=== PATIENT | female | born 1935 | race Caucasian/White ===

== ENCOUNTER 2020-07-09 17:11 | Outpatient (REF) | payer MEDICARE, SELFPAY | END 2020-07-09 17:12 | disposition home or self-care (01) | LOC: HO.LAB 17:11 | PROVIDERS: Visit Provider Internal Medicine | DX: Z20.828 Contact with and (suspected) exposure to other viral communicable diseases (principal) | CPT/HCPCS: C9803; U0003 ==

== ENCOUNTER 2020-10-12 11:55 | Outpatient (REF) | payer MEDICARE, SELFPAY ==
[2020-10-12 14:11] LABS: Albumin Level 4.2 g/dL (3.5-5.0); Calcium 9.7 mg/dL (8.4-10.2)
[2020-10-12 14:43] LABS: Vitamin D 25-OH Total 46.4 ng/mL (>30)
== END 2020-10-12 11:56 | disposition home or self-care (01) ==
LOC: HO.HMGCLDS 11:55
PROVIDERS: PCP Internal Medicine; Visit Provider Internal Medicine
DX: M81.0 Age-related osteoporosis without current pathological fracture (principal); E83.52 Hypercalcemia; E23.1 Drug-induced hypopituitarism
CPT/HCPCS: 36415; 82040; 82306; 82310

== ENCOUNTER 2020-10-15 | Outpatient (REF) | payer MEDICARE, SELFPAY ==
[2020-10-18 15:36] LABS: N-Telopeptide 19 (see note); NTXCreaRU 59 mg/dL (20-275)
== END 2020-10-15 00:01 | disposition home or self-care (01) ==
LOC: HO.HMGCLNP
PROVIDERS: Visit Provider Internal Medicine
DX: M81.0 Age-related osteoporosis without current pathological fracture (principal); E83.52 Hypercalcemia; E21.3 Hyperparathyroidism, unspecified; E55.9 Vitamin D deficiency, unspecified
CPT/HCPCS: 82523

== ENCOUNTER → 2020-10-17 10:47 | Outpatient (BNVA) | payer MEDICARE, SELFPAY | PROVIDERS: PCP Internal Medicine; Visit Provider Internal Medicine | DX: M81.0 Age-related osteoporosis without current pathological fracture (principal); E21.3 Hyperparathyroidism, unspecified | CPT/HCPCS: 96372; 96402; 99212; J0897 ==

== ENCOUNTER 2020-11-02 12:41 | Outpatient (REF) | payer MEDICARE, SELFPAY ==
[2020-11-02 14:25] LABS: Alanine Aminotransferase 13 U/L (0-31); Albumin Level 4.1 g/dL (3.5-5.0); Alkaline Phosphatase 64 U/L (39-117); Anion Gap 10 (12-20); Aspartate Amino Transferase 24 U/L (5-31); Bilirubin Total 0.5 mg/dL (0.0-1.0); Blood Urea Nitrogen 21 mg/dL (9-16); Calcium 9.5 mg/dL (8.4-10.2); Carbon Dioxide 29 mmol/L (22-29); Chloride 104 mmol/L (96-108); Estimated Glomerular Filt Rate 57; Glucose Random 120 mg/dL (60-115); Sodium 139 mmol/L (135-145); Total Protein 7.4 g/dL (6.5-8.0)
[2020-11-02 15:06] LABS: Vitamin D 25-OH Total 41.5 ng/mL (>30)
[2020-11-05 16:12] LABS: Calcium (PTHI) 9.9 mg/dL (8.6-10.4); PTHI 47 pg/mL (14-64)
== END 2020-11-02 12:42 | disposition home or self-care (01) ==
LOC: HO.HMGCLDS 12:41
PROVIDERS: PCP Internal Medicine; Visit Provider Internal Medicine
DX: M81.0 Age-related osteoporosis without current pathological fracture (principal); E55.9 Vitamin D deficiency, unspecified
CPT/HCPCS: 36415; 80053; 82306; 83970

== ENCOUNTER 2020-11-19 11:08 | Outpatient (REF) | payer MEDICARE, SELFPAY ==
[2020-11-19 12:24] LABS: Alanine Aminotransferase 12 U/L (0-31); Albumin Level 4.2 g/dL (3.5-5.0); Alkaline Phosphatase 54 U/L (39-117); Aspartate Amino Transferase 24 U/L (5-31); Bilirubin Direct 0.2 mg/dL (0.0-0.5); Bilirubin Total 0.4 mg/dL (0.0-1.0); Cholesterol 157 mg/dL; HDL Cholesterol 56 mg/dL; LDL Cholesterol Calculated 82 mg/dl; Total Protein 7.3 g/dL (6.5-8.0); Triglycerides 95 mg/dL
[2020-11-19 12:37] LABS: Reflex LDLD? No
== END 2020-11-19 11:09 | disposition home or self-care (01) ==
LOC: HO.LNP 11:08
PROVIDERS: PCP Internal Medicine; Visit Provider Internal Medicine
DX: E78.00 Pure hypercholesterolemia, unspecified (principal)
CPT/HCPCS: 80061; 80076

== ENCOUNTER 2021-04-17 09:50 | Outpatient (REF) | payer MEDICARE, SELFPAY ==
[2021-04-17 12:20] LABS: Albumin Level 4.2 g/dL (3.5-5.0); Estimated Glomerular Filt Rate > 60; Phosphorus 3.5 mg/dL (2.7-4.5)
[2021-04-17 12:25] LABS: Vitamin D 25-OH Total 45.3 ng/mL (>30)
[2021-04-18 15:36] LABS: Calcium (PTHI) 10.2 mg/dL (8.6-10.4); PTHI 45 pg/mL (14-64)
== END 2021-04-17 09:51 | disposition home or self-care (01) ==
LOC: HO.HMGCLDS 09:50
PROVIDERS: PCP Internal Medicine; Visit Provider Internal Medicine
DX: M81.0 Age-related osteoporosis without current pathological fracture (principal); E55.9 Vitamin D deficiency, unspecified
CPT/HCPCS: 36415; 82040; 82306; 82310; 82565; 83970; 84100

== ENCOUNTER → 2021-04-18 10:45 | Outpatient (BNVA) | payer MEDICARE, SELFPAY | PROVIDERS: PCP Internal Medicine; Visit Provider Internal Medicine | DX: M81.0 Age-related osteoporosis without current pathological fracture (principal); E55.9 Vitamin D deficiency, unspecified | CPT/HCPCS: 96372; J0897 ==

== ENCOUNTER 2021-05-02 11:29 | Outpatient (REF) | payer MEDICARE, SELFPAY ==
[2021-05-02 14:16] LABS: Albumin Level 4.2 g/dL (3.5-5.0); Estimated Glomerular Filt Rate > 60
[2021-05-03 17:51] LABS: Calcium (PTHI) 9.9 mg/dL (8.6-10.4); PTHI 62 pg/mL (14-64)
== END 2021-05-02 11:30 | disposition home or self-care (01) ==
LOC: HO.HMGCLDS 11:29
PROVIDERS: PCP Internal Medicine; Visit Provider Internal Medicine
DX: E55.9 Vitamin D deficiency, unspecified (principal)
CPT/HCPCS: 36415; 82040; 82565; 83970

== ENCOUNTER 2021-05-07 12:47 | Outpatient (REF) | payer MEDICARE, SELFPAY ==
--- NOTE | ~2021-05-07 | MM_ITS ---
EXAMINATION: BONE DENSITOMETRY CLINICAL INDICATION: Age-related osteoporosis without current pathological fracture. COMPARISON: Previous BD dated 05/06/2019 and baseline BD dated 01/19/2008. TECHNIQUE: Using a Performable DXA System (software version: 13.1) manufactured by [employer], dual-energy x-ray absorptiometry was performed of the spine and left hip. The images are of good technical quality. Summary results are attached. FINDINGS: AP SPINE L1-L3 (excluding L4): The data of L1-L4 has been changed to exclude the L4 vertebral body, because degenerative changes at this level may cause overestimation of lumbar spine density. Current: BMD 0.801 g/cm2, Z-score -0.6, T-score -3.1, osteoporosis, 6.9% increase from previous, 0.2% decrease from baseline (<5% change is not significant). Prior: BMD 0.749 g/cm2. Baseline: BMD 0.803 g/cm2. LEFT FEMUR, NECK: Current: BMD 0.854 g/cm2, Z-score 1.4, T-score -1.3, osteopenia. Prior: BMD 0.752 g/cm2. Baseline: BMD 0.846 g/cm2. LEFT FEMUR, TOTAL: Current: BMD 0.820 g/cm2, Z-score 1.2, T-score -1.5, osteopenia, 18.2% increase from previous, 4.3% decrease from baseline (<5% change is not significant). Prior: BMD 0.694 g/cm2. Baseline: BMD 0.857 g/cm2. IDENTIFIED RISK FACTORS: Osteoporosis, menopause. HISTORY OF FRACTURE: None listed. MEDICATIONS: None listed. MM/XR DEXA axial skeleton IMPRESSION: 1. DIAGNOSIS: Osteoporosis based on the lowest T-score value of -3.1 in the lumbar spine applying World Health Organization criteria. 2. 10-YEAR FRACTURE RISK PREDICTION, FRAX: Major osteoporotic fracture (clinical spine, forearm, hip or shoulder) 11.1%. Hip fracture 3.0%. 3. Treatment Recommendations: NOF guidelines recommend consideration for treatment in postmenopausal women and men age 50 and older presenting with the following: -A hip or vertebral (clinical or morphometric) fracture. -T-score less than or equal to -2.5 at the femoral neck or spine after appropriate evaluation to exclude secondary causes. -Low bone mass at the hip or spine and a 10-year fracture probability by FRAX of greater than or equal to 3% for hip fracture or greater than or equal to 20% for major osteoporotic fracture based on the [place] adapted WHO algorithm. 4. Other Recommendations: All treatment decisions require clinical judgment and consideration of individual patient factors, including patient preferences, comorbidities, previous drug use, risk factors not captured in the FRAX model (e.g. frailty, falls, vitamin D deficiency, increased bone turnover, interval significant decline in bone density) and possible under or overestimation of fracture risk by FRAX. Additional medical evaluation for secondary cause of low bone mineral density may be appropriate. FUTURE SCAN RECOMMENDATION: People with diagnosed cases of osteoporosis or at high risk for fracture should have regular bone mineral density tests. For patients eligible for Medicare, routine testing is allowed once every 2 years. The testing frequency can be increased to one year for patients who have rapidly progressing disease, those who are receiving or discontinuing medical therapy to restore bone mass, or have additional risk factors.
== END 2021-05-07 12:48 | disposition home or self-care (01) ==
LOC: HO.MAMMO 12:47
PROVIDERS: PCP Internal Medicine; Visit Provider Internal Medicine
DX: M81.0 Age-related osteoporosis without current pathological fracture (principal)
CPT/HCPCS: 77080

== ENCOUNTER 2021-05-10 11:01 | Outpatient (REF) | payer MEDICARE, SELFPAY ==
[2021-05-10 11:07] LABS: MANUAL DIFF FLAG NO
[2021-05-10 11:42] LABS: Basophils Absolute Auto 0.1 X10*3/uL (0.0-0.2); Basophils Percent Auto 0.8 % (0-2); Eosinophils Absolute Auto 0.3 X10*3/uL (0.0-0.4); Eosinophils Percent Auto 3.9 % (0-4); Hematocrit 39.8 % (37-47); Hemoglobin 12.8 g/dl (12.0-16.0); Imm Gran Abs Auto 0.02 X10*3/uL (0.00-0.03); Imm Gran Pct Auto 0.3 % (0.0-0.4); Lymphocytes Absolute Auto 2.5 X10*3/uL (1.2-4.9); Lymphocytes Percent Auto 32.8 % (20-40); Mean Corpuscular HGB Conc 32.2 g/dl (31.0-35.0); Mean Corpuscular Volume 87.1 fL (80-98); Mean Platelet Volume 10.8 fL (9.4-12.3); Monocytes Absolute Auto 0.8 X10*3/uL (0.1-1.2); Monocytes Percent Auto 9.9 % (2-11); Neutrophils Percent Auto 52.3 % (45-73); Platelet Count 187 X10*3/uL (160-400); Red Blood Count 4.57 X10*6/uL (4.20-5.50); White Blood Count 7.7 X10*3/uL (4.8-10.8)
[2021-05-10 12:05] LABS: Appearance Urine HAZY; Color Urine YELLOW; Glucose Urine UA NEG (NEG); Leukocyte Esterase Urine 3+ (NEG); Nitrite Urine NEG (NEG); PH 7.5 (5.0-8.0); Urine Blood TRACE (NEG); Urine Ketones NEG (NEG); Urine Protein NEG (NEG-TRACE)
[2021-05-10 12:15] LABS: Alanine Aminotransferase 17 U/L (0-31); Albumin Level 4.1 g/dL (3.5-5.0); Alkaline Phosphatase 52 U/L (39-117); Anion Gap 12 (12-20); Aspartate Amino Transferase 32 U/L (5-31); Bilirubin Total 0.7 mg/dL (0.0-1.0); Blood Urea Nitrogen 13 mg/dL (9-16); Calcium 9.6 mg/dL (8.4-10.2); Carbon Dioxide 25 mmol/L (22-29); Chloride 108 mmol/L (96-108); Cholesterol 147 mg/dL; Estimated Glomerular Filt Rate > 60; Glucose Fasting 97 mg/dL (60-99); HDL Cholesterol 50 mg/dL; LDL Cholesterol Calculated 75 mg/dl; Potassium 3.8 mmol/L (3.3-5.1); Sodium 141 mmol/L (135-145); Triglycerides 112 mg/dL
[2021-05-10 12:22] LABS: Vitamin D 25-OH Total 44.5 ng/mL (>30)
[2021-05-10 12:44] LABS: Bacteria Urine 4+ /LPF; RBC Urine 0 /HPF (0); Squamous Epithelial Cell Urine TRACE /LPF; WBC Clumps Urine NOTED; WBC Urine 50-75 /HPF (0-4)
== END 2021-05-10 11:02 | disposition home or self-care (01) ==
LOC: HO.LNP 11:01
PROVIDERS: Visit Provider Internal Medicine
DX: E78.00 Pure hypercholesterolemia, unspecified (principal); M81.0 Age-related osteoporosis without current pathological fracture; E67.3 Hypervitaminosis D
CPT/HCPCS: 80053; 80061; 81001; 81003; 82306; 85025

== ENCOUNTER → 2021-06-19 10:45 | Outpatient (BNVA) | payer MEDICARE, SELFPAY | PROVIDERS: PCP Internal Medicine; Visit Provider Internal Medicine | DX: M81.0 Age-related osteoporosis without current pathological fracture (principal); E21.3 Hyperparathyroidism, unspecified | CPT/HCPCS: 99212 ==

== ENCOUNTER 2021-09-26 11:22 | Outpatient (REF) | payer MEDICARE, SELFPAY ==
[2021-09-26 14:17] LABS: Alanine Aminotransferase 14 U/L (0-31); Alkaline Phosphatase 54 U/L (39-117); Anion Gap 9 (12-20); Aspartate Amino Transferase 27 U/L (5-31); Bilirubin Total 0.5 mg/dL (0.0-1.0); Blood Urea Nitrogen 18 mg/dL (9-16); Calcium 10.1 mg/dL (8.4-10.2); Carbon Dioxide 31 mmol/L (22-29); Chloride 102 mmol/L (96-108); Estimated Glomerular Filt Rate 57; Glucose Random 115 mg/dL (60-115); Magnesium 2.3 mg/dL (1.6-2.6); Phosphorus 3.2 mg/dL (2.7-4.5); Potassium 3.6 mmol/L (3.3-5.1); Sodium 138 mmol/L (135-145); Total Protein 7.4 g/dL (6.5-8.0)
[2021-09-26 14:20] LABS: Vitamin D 25-OH Total 39.9 ng/mL (>30)
[2021-09-27 14:07] LABS: Calcium (PTHI) 10.2 mg/dL (8.6-10.4); PTHI 47 pg/mL (14-64)
== END 2021-09-26 11:23 | disposition home or self-care (01) ==
LOC: HO.HMGCLDS 11:22
PROVIDERS: PCP Internal Medicine; Visit Provider Internal Medicine
DX: E55.9 Vitamin D deficiency, unspecified (principal); E21.3 Hyperparathyroidism, unspecified; M81.0 Age-related osteoporosis without current pathological fracture
CPT/HCPCS: 36415; 80053; 82306; 83735; 83970; 84100

== ENCOUNTER → 2021-10-09 10:41 | Outpatient (BNVA) | payer MEDICARE, SELFPAY | PROVIDERS: PCP Internal Medicine; Visit Provider Internal Medicine | DX: M81.0 Age-related osteoporosis without current pathological fracture (principal); E21.3 Hyperparathyroidism, unspecified | CPT/HCPCS: 99212 ==

== ENCOUNTER 2021-10-22 11:02 | Outpatient (REF) | payer MEDICARE, SELFPAY ==
[2021-10-23 13:01] LABS: Calcium (PTHI) 9.9 mg/dL (8.6-10.4); PTHI 46 pg/mL (14-64)
== END 2021-10-22 11:03 | disposition home or self-care (01) ==
LOC: HO.HMGCLDS 11:02
PROVIDERS: PCP Internal Medicine; Visit Provider Internal Medicine
DX: M81.0 Age-related osteoporosis without current pathological fracture (principal)
CPT/HCPCS: 36415; 83970

== ENCOUNTER → 2021-10-23 13:45 | Outpatient (BNVA) | payer MEDICARE, SELFPAY | PROVIDERS: PCP Internal Medicine; Visit Provider Internal Medicine | DX: M81.0 Age-related osteoporosis without current pathological fracture (principal) | CPT/HCPCS: 96372; J0897 ==

== ENCOUNTER 2021-11-07 12:06 | Outpatient (REF) | payer MEDICARE, SELFPAY ==
[2021-11-07 12:42] LABS: Alanine Aminotransferase 15 U/L (0-31); Albumin Level 4.2 g/dL (3.5-5.0); Alkaline Phosphatase 56 U/L (39-117); Aspartate Amino Transferase 26 U/L (5-31); Bilirubin Direct 0.2 mg/dL (0.0-0.5); Bilirubin Total 0.5 mg/dL (0.0-1.0); Cholesterol 151 mg/dL; HDL Cholesterol 51 mg/dL; LDL Cholesterol Calculated 79 mg/dl; Total Protein 7.4 g/dL (6.5-8.0); Triglycerides 108 mg/dL
[2021-11-07 12:58] LABS: Reflex LDLD? No
== END 2021-11-07 12:07 | disposition home or self-care (01) ==
LOC: HO.LNP 12:06
PROVIDERS: Visit Provider Internal Medicine
DX: E78.00 Pure hypercholesterolemia, unspecified (principal)
CPT/HCPCS: 80061; 80076

== ENCOUNTER 2022-04-09 13:10 | Outpatient (REF) | payer MEDICARE, SELFPAY ==
[2022-04-09 17:47] LABS: Alanine Aminotransferase 16 U/L (0-31); Albumin Level 4.1 g/dL (3.5-5.0); Alkaline Phosphatase 57 U/L (39-117); Anion Gap 13 (12-20); Aspartate Amino Transferase 27 U/L (5-31); Bilirubin Total 0.5 mg/dL (0.0-1.0); Blood Urea Nitrogen 18 mg/dL (9-16); Calcium 9.5 mg/dL (8.4-10.2); Carbon Dioxide 27 mmol/L (22-29); Chloride 105 mmol/L (96-108); Estimated Glomerular Filt Rate > 60; Glucose Random 99 mg/dL (60-115); Potassium 4.2 mmol/L (3.3-5.1); Sodium 141 mmol/L (135-145); Total Protein 7.1 g/dL (6.5-8.0)
[2022-04-09 18:03] LABS: Vitamin D 25-OH Total 37.6 ng/mL (>30)
[2022-04-10 11:32] LABS: Calcium (PTHI) 9.6 mg/dL (8.6-10.4); PTHI 63 pg/mL (16-77)
== END 2022-04-09 13:11 | disposition home or self-care (01) ==
LOC: HO.HMGCLDS 13:10
PROVIDERS: PCP Internal Medicine; Visit Provider Internal Medicine
DX: M81.0 Age-related osteoporosis without current pathological fracture (principal); E55.9 Vitamin D deficiency, unspecified
CPT/HCPCS: 36415; 80053; 82306; 83970; 84100

== ENCOUNTER 2022-04-10 10:53 | Outpatient (REF) | payer MEDICARE, SELFPAY ==
[2022-04-16 12:51] LABS: N-Telopeptide 14 (see note); NTXCreaRU 33 mg/dL (20-275)
== END 2022-04-10 10:54 | disposition home or self-care (01) ==
LOC: HO.HMGCLDS 10:53
PROVIDERS: PCP Internal Medicine; Visit Provider Internal Medicine
DX: M81.0 Age-related osteoporosis without current pathological fracture (principal)
CPT/HCPCS: 82523

== ENCOUNTER → 2022-04-23 13:44 | Outpatient (BNVA) | payer MEDICARE, SELFPAY | PROVIDERS: PCP Internal Medicine; Visit Provider Internal Medicine | DX: M81.0 Age-related osteoporosis without current pathological fracture (principal); E21.3 Hyperparathyroidism, unspecified; E55.9 Vitamin D deficiency, unspecified | CPT/HCPCS: 96372; 99212; J0897 ==

== ENCOUNTER 2022-05-08 13:31 | Outpatient (REF) | payer MEDICARE, SELFPAY ==
[2022-05-08 17:00] LABS: Albumin Level 4.3 g/dL (3.5-5.0); Estimated Glomerular Filt Rate > 60
[2022-05-09 12:06] LABS: Calcium (PTHI) 10.3 mg/dL (8.6-10.4); PTHI 64 pg/mL (16-77)
== END 2022-05-08 13:32 | disposition home or self-care (01) ==
LOC: HO.HMGCLDS 13:31
PROVIDERS: PCP Internal Medicine; Visit Provider Internal Medicine
DX: M81.0 Age-related osteoporosis without current pathological fracture (principal)
CPT/HCPCS: 36415; 82040; 82565; 83970

== ENCOUNTER 2022-05-15 12:05 | Outpatient (REF) | payer MEDICARE, SELFPAY ==
[2022-05-15 12:10] LABS: MANUAL DIFF FLAG NO
[2022-05-15 12:15] LABS: Basophils Absolute Auto 0.1 X10*3/uL (0.0-0.2); Basophils Percent Auto 1.1 % (0-2); Eosinophils Absolute Auto 0.4 X10*3/uL (0.0-0.4); Hemoglobin 13.2 g/dl (12.0-16.0); Imm Gran Abs Auto 0.02 X10*3/uL (0.00-0.03); Imm Gran Pct Auto 0.2 % (0.0-0.4); Lymphocytes Absolute Auto 3.3 X10*3/uL (1.2-4.9); Lymphocytes Percent Auto 33.8 % (20-40); Mean Corpuscular HGB Conc 31.4 g/dl (31.0-35.0); Mean Corpuscular Hemoglobin 28.1 pg (27.0-33.0); Mean Corpuscular Volume 89.4 fL (80.0-98.0); Mean Platelet Volume 10.3 fL (9.4-12.3); Monocytes Absolute Auto 1.1 X10*3/uL (0.1-1.2); Monocytes Percent Auto 10.8 % (2-11); Neutrophils Absolute Auto 4.9 x10*3/uL (2.0-8.3); Neutrophils Percent Auto 50.1 % (45-73); Platelet Count 237 X10*3/uL (160-400); Red Cell Distribution Width 14.5 % (11.0-16.0); White Blood Count 9.9 X10*3/uL (4.8-10.8)
[2022-05-15 12:19] LABS: Appearance Urine Cloudy; Color Urine Yellow; Glucose Urine UA Negative (Negative); Leukocyte Esterase Urine Large (3+) (Negative); Nitrite Urine Positive (Negative); UMIC TRIGGER UA YES; Urine Blood Negative (Negative); Urine Ketones Negative (Negative); Urine Protein Negative (Neg-Trace)
[2022-05-15 12:25] LABS: Bacteria Urine 4+ (None Seen); Hyaline Casts Urine 0-2 /LPF (0-2); RBC Urine 0-2 /HPF (0-2); Squamous Epithelial Cell Urine 0-2 /HPF (0-2); WBC Urine >50 /HPF (0-5)
[2022-05-15 12:26] LABS: Alanine Aminotransferase 19 U/L (0-31); Alkaline Phosphatase 54 U/L (39-117); Anion Gap 13 (12-20); Aspartate Amino Transferase 27 U/L (5-31); Bilirubin Total 0.5 mg/dL (0.0-1.0); Blood Urea Nitrogen 20 mg/dL (9-16); Calcium 9.7 mg/dL (8.4-10.2); Carbon Dioxide 27 mmol/L (22-29); Chloride 107 mmol/L (96-108); Cholesterol 161 mg/dL; Estimated Glomerular Filt Rate > 60; Glucose Fasting 97 mg/dL (60-99); HDL Cholesterol 50 mg/dL; LDL Cholesterol Calculated 94 mg/dl; Potassium 4.2 mmol/L (3.3-5.1); Sodium 143 mmol/L (135-145); Total Protein 7.2 g/dL (6.5-8.0); Triglycerides 86 mg/dL
[2022-05-15 12:46] LABS: Vitamin D 25-OH Total 46.3 ng/mL (>30)
== END 2022-05-15 12:06 | disposition home or self-care (01) ==
LOC: HO.LNP 12:05
PROVIDERS: Visit Provider Internal Medicine
DX: E78.00 Pure hypercholesterolemia, unspecified (principal); E67.3 Hypervitaminosis D
CPT/HCPCS: 80053; 80061; 81001; 82306; 85025

== ENCOUNTER 2022-05-16 14:50 | Outpatient (REF) | payer MEDICARE, SELFPAY | END 2022-05-16 14:51 | disposition home or self-care (01) | LOC: HO.HMGCLDS 14:50 | PROVIDERS: PCP Internal Medicine; Visit Provider Internal Medicine | DX: N39.0 Urinary tract infection, site not specified (principal) | CPT/HCPCS: 87086; 87088; 87186 ==

== ENCOUNTER 2022-06-05 10:46 | Outpatient (REF) | payer MEDICARE, SELFPAY ==
[2022-06-05 11:40] LABS: Appearance Urine Cloudy; Color Urine Yellow; Glucose Urine UA Negative (Negative); Leukocyte Esterase Urine Small (1+) (Negative); Nitrite Urine Negative (Negative); UMIC TRIGGER UA YES; Urine Blood Negative (Negative); Urine Ketones Negative (Negative); Urine Protein Negative (Neg-Trace)
[2022-06-05 11:59] LABS: Bacteria Urine 4+ (None Seen); RBC Urine 0-2 /HPF (0-2); WBC Urine 0-5 /HPF (0-5)
== END 2022-06-05 10:47 | disposition home or self-care (01) ==
LOC: HO.LNP 10:46
PROVIDERS: Visit Provider Internal Medicine
DX: N39.0 Urinary tract infection, site not specified (principal)
CPT/HCPCS: 81001; 87086; 87088; 87186

== ENCOUNTER 2022-06-12 13:41 | Outpatient (REF) | payer MEDICARE, SELFPAY ==
--- NOTE | ~2022-06-12 | US_ITS ---
EXAMINATION: US EXTRACRANIAL CAROTID DUPLEX, BILATERAL CLINICAL INFORMATION: TIA. COMPARISON: 05/18/2012. TECHNIQUE: Real-time ultrasound and Doppler techniques (integrating B-mode 2-D vascular images, Doppler spectral analysis and color-flow Doppler imaging) were utilized to interrogate the extracranial carotid arteries, the vertebral arteries and proximal subclavian arteries bilaterally. The degree of stenosis is determined by criteria similar to NASCET. FINDINGS: RIGHT SIDE: 1. There is mild atherosclerotic plaque seen in the bifurcation/proximal ICA region. 2. The common carotid artery PSV proximally is 99 cm/s and distally 111 cm/s. 3. The proximal internal carotid artery velocities are 93 cm/s systolic and 24 cm/s diastolic. 4. The proximal external carotid artery PSV is 91 cm/s. 5. The vertebral artery shows antegrade flow. 6. The subclavian artery waveforms are normal. LEFT SIDE: 1. There is mild atherosclerotic plaque seen in the bifurcation/proximal ICA region. 2. The common carotid artery PSV proximally is 117 cm/s and distally 111 cm/s. 3. The proximal internal carotid artery velocities are 93 cm/s systolic and 16 cm/s diastolic. 4. The proximal external carotid artery PSV is 110 cm/s. 5. The vertebral artery shows antegrade flow. 6. The subclavian artery waveforms are normal. US/US carotid duplex BI IMPRESSION: 1. RIGHT: Minimal, non-hemodynamically significant stenosis of the proximal right internal carotid artery corresponding to a 0-49% stenosis by velocity criteria. 2. LEFT: Minimal, non-hemodynamically significant stenosis of the proximal left internal carotid artery corresponding to a 0-49% stenosis by velocity criteria. 3. There is no change in the category severity of disease when compared to the previous study dated 05/18/2012.
== END 2022-06-12 13:42 | disposition home or self-care (01) ==
LOC: HO.HMGCX 13:41
PROVIDERS: PCP Internal Medicine; Visit Provider Internal Medicine
DX: G45.9 Transient cerebral ischemic attack, unspecified (principal)
CPT/HCPCS: 93880

== ENCOUNTER 2022-06-23 11:57 | Outpatient (REF) | payer MEDICARE, SELFPAY ==
[2022-06-23 13:59] LABS: Appearance Urine Cloudy; Color Urine Yellow; Glucose Urine UA Negative (Negative); Leukocyte Esterase Urine Moderate (2+) (Negative); Nitrite Urine Negative (Negative); UMIC TRIGGER UA YES; Urine Blood Negative (Negative); Urine Ketones Negative (Negative); Urine Protein Negative (Neg-Trace)
[2022-06-23 14:09] LABS: Bacteria Urine None Seen (None Seen); Hyaline Casts Urine 0-2 /LPF (0-2); RBC Urine 0-2 /HPF (0-2); WBC Urine 0-5 /HPF (0-5)
== END 2022-06-23 11:58 | disposition home or self-care (01) ==
LOC: HO.HMGCLDS 11:57
PROVIDERS: PCP Internal Medicine; Visit Provider Internal Medicine
DX: N39.0 Urinary tract infection, site not specified (principal)
CPT/HCPCS: 81001; 87086

== ENCOUNTER 2022-10-13 13:36 | Outpatient (REF) | payer MEDICARE, SELFPAY ==
[2022-10-13 17:04] LABS: Alanine Aminotransferase 16 U/L (0-31); Albumin Level 4.1 g/dL (3.5-5.0); Alkaline Phosphatase 54 U/L (39-117); Anion Gap 11 (12-20); Aspartate Amino Transferase 27 U/L (5-31); Bilirubin Total 0.5 mg/dL (0.0-1.0); Blood Urea Nitrogen 15 mg/dL (9-16); Carbon Dioxide 27 mmol/L (22-29); Chloride 104 mmol/L (96-108); Estimated Glomerular Filt Rate > 60; Glucose Random 87 mg/dL (60-115); Phosphorus 3.1 mg/dL (2.7-4.5); Potassium 4.2 mmol/L (3.3-5.1); Sodium 138 mmol/L (135-145); Total Protein 6.9 g/dL (6.5-8.0)
[2022-10-13 17:20] LABS: Vitamin D 25-OH Total 39.9 ng/mL (>30)
[2022-10-14 13:39] LABS: PTHI 62 pg/mL (16-77)
== END 2022-10-13 13:37 | disposition home or self-care (01) ==
LOC: HO.HMGCLDS 13:36
PROVIDERS: PCP Internal Medicine; Visit Provider Internal Medicine
DX: E55.9 Vitamin D deficiency, unspecified (principal); M81.0 Age-related osteoporosis without current pathological fracture
CPT/HCPCS: 36415; 80053; 82306; 83970; 84100

== ENCOUNTER 2022-10-14 13:34 | Outpatient (REF) | payer MEDICARE, SELFPAY ==
[2022-10-23 13:09] LABS: N-Telopeptide 15 (see note); NTXCreaRU 30 mg/dL (20-275)
== END 2022-10-14 13:35 | disposition home or self-care (01) ==
LOC: HO.HMGCLDS 13:34
PROVIDERS: PCP Internal Medicine; Visit Provider Internal Medicine
DX: M81.0 Age-related osteoporosis without current pathological fracture (principal)
CPT/HCPCS: 82523

== ENCOUNTER → 2022-10-27 14:01 | Outpatient (BNVA) | payer MEDICARE, SELFPAY | PROVIDERS: PCP Internal Medicine; Visit Provider Internal Medicine | DX: M81.0 Age-related osteoporosis without current pathological fracture (principal); E21.3 Hyperparathyroidism, unspecified; E55.9 Vitamin D deficiency, unspecified; Z85.3 Personal history of malignant neoplasm of breast; Z90.11 Acquired absence of right breast and nipple; Z92.3 Personal history of irradiation; Z92.21 Personal history of antineoplastic chemotherapy; Z79.620 Long term (current) use of immunosuppressive biologic | CPT/HCPCS: 96372; 99212; J0897 ==

== ENCOUNTER 2022-11-10 09:15 | Outpatient (REF) | payer MEDICARE, SELFPAY ==
[2022-11-10 12:21] LABS: Albumin Level 4.3 g/dL (3.5-5.0); Estimated Glomerular Filt Rate > 60
[2022-11-11 14:53] LABS: Calcium (PTHI) 10.2 mg/dL (8.6-10.4); PTHI 67 pg/mL (16-77)
== END 2022-11-10 09:16 | disposition home or self-care (01) ==
LOC: HO.HMGCLNP 09:15
PROVIDERS: PCP Internal Medicine; Visit Provider Internal Medicine
DX: Z13.89 Encounter for screening for other disorder (principal)
CPT/HCPCS: 82040; 82565; 83970

== ENCOUNTER 2022-11-10 11:20 | Outpatient (REF) | payer MEDICARE, SELFPAY ==
[2022-11-10 13:26] LABS: Alanine Aminotransferase 16 U/L (0-31); Albumin Level 4.2 g/dL (3.5-5.0); Alkaline Phosphatase 51 U/L (39-117); Aspartate Amino Transferase 27 U/L (5-31); Bilirubin Direct 0.2 mg/dL (0.0-0.5); Bilirubin Total 0.8 mg/dL (0.0-1.0); Cholesterol 148 mg/dL; HDL Cholesterol 53 mg/dL; LDL Cholesterol Calculated 85 mg/dl; Total Protein 7.1 g/dL (6.5-8.0); Triglycerides 50 mg/dL
[2022-11-10 13:55] LABS: Reflex LDLD? No
== END 2022-11-10 11:21 | disposition home or self-care (01) ==
LOC: HO.LNP 11:20
PROVIDERS: Visit Provider Internal Medicine
DX: E78.00 Pure hypercholesterolemia, unspecified (principal); M81.0 Age-related osteoporosis without current pathological fracture
CPT/HCPCS: 80061; 80076; 82040; 82565; 83970

== ENCOUNTER 2023-04-06 13:06 | Outpatient (REF) | payer MEDICARE, SELFPAY ==
[2023-04-06 17:06] LABS: Alanine Aminotransferase 13 U/L (0-31); Albumin Level 4.2 g/dL (3.5-5.0); Alkaline Phosphatase 62 U/L (39-117); Anion Gap 13 (12-20); Aspartate Amino Transferase 25 U/L (5-31); Bilirubin Total 0.4 mg/dL (0.0-1.0); Blood Urea Nitrogen 19 mg/dL (9-16); Calcium 9.9 mg/dL (8.4-10.2); Carbon Dioxide 26 mmol/L (22-29); Chloride 105 mmol/L (96-108); Estimated Glomerular Filt Rate > 60; Glucose Random 101 mg/dL (60-115); Phosphorus 3.2 mg/dL (2.7-4.5); Potassium 3.8 mmol/L (3.3-5.1); Sodium 140 mmol/L (135-145); Total Protein 7.8 g/dL (6.5-8.0)
[2023-04-06 17:23] LABS: Vitamin D 25-OH Total 53.6 ng/mL (>30)
[2023-04-08 13:48] LABS: Calcium (PTHI) 9.9 mg/dL (8.6-10.4); PTHI 57 pg/mL (16-77)
== END 2023-04-06 13:07 | disposition home or self-care (01) ==
LOC: HO.HMGCLDS 13:06
PROVIDERS: PCP Internal Medicine; Visit Provider Internal Medicine
DX: E55.9 Vitamin D deficiency, unspecified (principal); M81.0 Age-related osteoporosis without current pathological fracture
CPT/HCPCS: 36415; 80053; 82306; 83970; 84100

== ENCOUNTER 2023-04-29 10:40 | Outpatient (AMB) | payer MEDICARE, SELFPAY ==
--- NOTE | 2023-04-29 10:41 | AM.OFFVISNUR ---
Intake Intake Visit Reasons: Prolia Allergies No Known Allergies Allergy (Mild, Verified 12/15/22 15:49) NKA Office Meds Prolia Performing Provider: Lilibeth Hogue DO Administered by: Sachin Rosales RN on 04/29/23 10:41 Dose Route Admin Location Lot Number Expiration Date NDC Wind Turbine Controls Engineer 60 mg subcut R upper arm [id number] 04/30/25 [facility] Coding Diagnoses Assessment & Plan Assessment & Plan Orders: Orders AMB Denosumab Injection Practice Supplied Today M81.0 - Age-related osteoporosis without current pathological fracture
== END 2023-04-29 10:50 | disposition home or self-care (01) ==
LOC: HO.ENCR 10:40
PROVIDERS: PCP Internal Medicine; Visit Provider Internal Medicine
DX: M81.0 Age-related osteoporosis without current pathological fracture (principal)

== ENCOUNTER → 2023-04-29 10:40 | Outpatient (BNVA) | payer MEDICARE, SELFPAY | PROVIDERS: PCP Internal Medicine; Visit Provider Internal Medicine | DX: M81.0 Age-related osteoporosis without current pathological fracture (principal) | CPT/HCPCS: 96372; J0897 ==

== ENCOUNTER 2023-06-24 10:49 | Outpatient (REF) | payer MEDICARE, SELFPAY ==
--- NOTE | ~2023-06-24 | MM_ITS ---
EXAMINATION: BONE DENSITOMETRY CLINICAL INDICATION: Age-related osteoporosis without current pathological fracture. COMPARISON: Previous BD dated 05/07/2021 and baseline BD dated 01/19/2008 (lumbar spine and left hip). This is the initial examination of the left forearm radius 33%. TECHNIQUE: Using a [employer] DXA System (software version: 13.1) manufactured by [employer], dual-energy x-ray absorptiometry was performed of the lumbar spine, left hip and left forearm radius 33%. The images are of good technical quality. Summary results are attached. FINDINGS: AP SPINE L1-L4: Current: BMD 0.835 g/cm2, Z-score -0.3, T-score -2.9, osteoporosis, 4.9% decrease from previous, 1.1% increase from baseline (<5% change is not significant). Prior: BMD 0.878 g/cm2. Baseline: BMD 0.826 g/cm2. LEFT FEMUR, NECK: Current: BMD 0.857 g/cm2, Z-score 1.6, T-score -1.3, osteopenia. Prior: BMD 0.854 g/cm2. Baseline: BMD 0.846 g/cm2. LEFT FEMUR, TOTAL: Current: BMD 0.846 g/cm2, Z-score 1.5, T-score -1.3, osteopenia, 3.2% increase from previous, 1.3% decrease from baseline (<5% change is not significant). Prior: BMD 0.820 g/cm2. Baseline: BMD 0.857 g/cm2. LEFT FOREARM RADIUS 33%: BMD 0.575 g/cm2, Z-score -0.1, T-score -3.4, osteoporosis. IDENTIFIED RISK FACTORS: Osteoporosis. Menopause. HISTORY OF FRACTURE: None listed. MEDICATIONS: Prolia. MM/XR DEXA axial skeleton IMPRESSION: 1. DIAGNOSIS: Osteoporosis based on the lowest T-score value of -3.4 in the left forearm radius 33% applying World Health Organization criteria. 2. 10-YEAR FRACTURE RISK PREDICTION, FRAX: According to the guidelines, FRAX calculation should only be performed on patients in the osteopenia bone density category.?Therefore, FRAX was not performed on this patient.? 3. Treatment Recommendations: NOF guidelines recommend consideration for treatment in postmenopausal women and men age 50 and older presenting with the following: -A hip or vertebral (clinical or morphometric) fracture. -T-score less than or equal to -2.5 at the femoral neck or spine after appropriate evaluation to exclude secondary causes. -Low bone mass at the hip or spine and a 10-year fracture probability by FRAX of greater than or equal to 3% for hip fracture or greater than or equal to 20% for major osteoporotic fracture based on the [place] adapted WHO algorithm. 4. Other Recommendations: All treatment decisions require clinical judgment and consideration of individual patient factors, including patient preferences, comorbidities, previous drug use, risk factors not captured in the FRAX model (e.g. frailty, falls, vitamin D deficiency, increased bone turnover, interval significant decline in bone density) and possible under or overestimation of fracture risk by FRAX. Additional medical evaluation for secondary cause of low bone mineral density may be appropriate. FUTURE SCAN RECOMMENDATION: People with diagnosed cases of osteoporosis or at high risk for fracture should have regular bone mineral density tests. For patients eligible for Medicare, routine testing is allowed once every 2 years. The testing frequency can be increased to one year for patients who have rapidly progressing disease, those who are receiving or discontinuing medical therapy to restore bone mass, or have additional risk factors.
== END 2023-06-24 10:50 | disposition home or self-care (01) ==
LOC: HO.MAMMO 10:49
PROVIDERS: PCP Internal Medicine; Visit Provider Internal Medicine Endocrinology, Diabetes & Metabolism
DX: Z13.820 Encounter for screening for osteoporosis (principal); Z78.0 Asymptomatic menopausal state; M81.0 Age-related osteoporosis without current pathological fracture
CPT/HCPCS: 77080

== ENCOUNTER 2023-08-11 12:50 | Outpatient (AMB) | payer MEDICARE, SELFPAY ==
--- NOTE | 2023-08-11 12:56 | MHC.OFFVIS ---
Intake Vital Signs 08/11/23 13:00 Height 5 ft 2.01 in Weight 108 lb 3.951 oz BMI 19.8 BP 116/60 Blood Pressure Location Lt brachial Position Sitting Pulse 82 Pulse Source Pulse Oximeter Intake Visit Reasons: Osteoporosis-CONFIRMED Intake Note: Patient present for Osteoporosis follow up visit. Previously followed by Dr. Pepper. 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 boulardii)) 250 mg PO ONCE sulfamethoxazole-trimethoprim 800-160 mg (Bactrim DS) 1 tab PO BID 5 days HPI HPI Comments History of Present Illness Details 88 YO Female who is seen in F/U for Osteoporosis. Patient last saw Dr. Pepper on 10/27/2022 First diagnosed in 2001. Received treatment in the past with Fosamax from 2001 to 2010. She did fail treatment with Fosamax as she had acute worsening of her BMD while on treatment. She was diagnosed with bilateral breast cancer and had a R sided mastectomy. She was treated with Chemo/Radiation and was also treated with Anastrazole from [id number]. She had a repeat BMD in 2019, which revealed a loss of BMD of 16% in her L hip. After her initial visit with mo she underwent full biochemical workup for secondary causes of Osteoporosis 08/09/19. Her Calcium was high normal at 10.4, albumin 4.4, Vitamin D 52, and PTH of 45, indicating likely mild primary hyperparathyroidism. She opted for medical management and no surgical parathyroidectomy. Decision was made to proceed with Prolia. She received 6 doses so far 10/12/2019, 04/11/2020, 10/17/2020, 04/18/2021, 10/23/2021, 04/23/2022. No history of pathologic fracture or ONJ. Has 4 servings of dietary calcium per day in the form of almond milk, cheese and ice cream. Does not take a Calcium Supplement. Does not take Vitamin D supplement. Denies ever using PPI, anticoagulant, antiepileptic or glucocorticoid medication. Does weight bearing exercise most days of the week in the form of walking. Walks between 53062-[address] steps per day. She also does [place] and rides a bike. Fracture history: Denies any fractures. 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 Menses was always regular. , she did not breastfeed. Menopause was mid 50's. Did use HRT from from age 53 for 8 years until the year 1999. History of Kidney stones: Denies. Denies Family history of Osteoporosis or hip fracture. UTD on dental cleanings and sees dentist every 6 months. No planned upcoming dental work or extractions. DXA dated 05/07/2021: FINDINGS: AP SPINE L1-L3 (excluding L4): The data of L1-L4 has been changed to exclude the L4 vertebral body, because degenerative changes at this level may cause overestimation of lumbar spine density. Current: BMD 0.801 g/cm2, Z-score -0.6, T-score -3.1, osteoporosis, 6.9% increase from previous, 0.2% decrease from baseline (<5% change is not significant). Prior: BMD 0.749 g/cm2. Baseline: BMD 0.803 g/cm2. LEFT FEMUR, NECK: Current: BMD 0.854 g/cm2, Z-score 1.4, T-score -1.3, osteopenia. Prior: BMD 0.752 g/cm2. Baseline: BMD 0.846 g/cm2. LEFT FEMUR, TOTAL: Current: BMD 0.820 g/cm2, Z-score 1.2, T-score -1.5, osteopenia, 18.2% increase from previous, 4.3% decrease from baseline (<5% change is not significant). Prior: BMD 0.694 g/cm2. Baseline: BMD 0.857 g/cm2. Labs: Laboratory Tests 10/13/22 10/13/22 10/14/22 13:43 13:43 04:50 Creatinine 0.83 Estimated GFR > 60 N-Telopeptide X-li nked 15 25-OH Vitamin D To remington 39.9 PTH Intact 62 Calcium (PTH Intac t) 10.0 PFSH Medical History (Reviewed 10/27/22 @ 14:45 by SHAHLA Cortez Hyperparathyroidism Osteoporosis Vitamin D deficiency Surgical History History of right cataract surgery History of left cataract surgery Hx of eye surgery Hx of cholecystectomy Hx of total mastectomy of right breast Family History Father CVD (cardiovascular disease) Stroke Mother Heart disease Social History Alcohol intake: never Patient Tobacco Use Status: Never used Tobacco Physical Exam Vital Signs: Last Vital Signs Pulse 82 08/11/23 13:00 BP 116/60 08/11/23 13:00 BMI result Body Mass Index 19.8 Assessment & Plan Assessment & Plan (1) Osteoporosis: Code(s): M81.0 - Age-related osteoporosis without current pathological fracture Qualifiers: Osteoporosis type: unspecified Presence of current pathological fracture: unspecified Qualified Code(s): M81.0 - Age-related osteoporosis without current pathological fracture Plan: This 88-year-old white female with history of osteoporosis with negative secondary workup currently being treated with Prolia 60 mg Q 6 months. DEXA bone density has improved with Prolia. Plan is to continue the Prolia, Could consider transitioning to bisphosphonate oral or IV in 2 yrs after next DEXA Coding Level of Care Code Est Pt Level 3 (97513) Diagnoses Osteoporosis, unspecified osteoporosis type, unspecified pathological fracture presence M81.0 Osteoporosis type: unspecified Presence of current pathological fracture: unspecified
[2023-08-11 13:00] VITALS: BP 116/60; PULSE 82; BMI 19.8
== END 2023-08-11 13:32 | disposition home or self-care (01) ==
PROVIDERS: PCP Internal Medicine; Visit Provider Internal Medicine Endocrinology, Diabetes & Metabolism
DX: M81.0 Age-related osteoporosis without current pathological fracture (principal)
CPT/HCPCS: 99213

== ENCOUNTER → 2023-08-11 12:50 | Outpatient (BNVA) | payer MEDICARE, SELFPAY | PROVIDERS: PCP Internal Medicine; Visit Provider Internal Medicine Endocrinology, Diabetes & Metabolism | DX: M81.0 Age-related osteoporosis without current pathological fracture (principal) | CPT/HCPCS: 99212 ==

== ENCOUNTER 2023-08-14 09:34 | Outpatient (REF) | payer MEDICARE, SELFPAY ==
[2023-08-14 13:32] LABS: MANUAL DIFF FLAG NO
[2023-08-14 13:40] LABS: Basophils Absolute Auto 0.1 X10*3/uL (0.0-0.2); Eosinophils Absolute Auto 0.7 X10*3/uL (0.0-0.4); Eosinophils Percent Auto 7.7 % (0-4); Hematocrit 43.8 % (37.0-47.0); Imm Gran Abs Auto 0.02 X10*3/uL (0.00-0.03); Imm Gran Pct Auto 0.2 % (0.0-0.4); Lymphocytes Absolute Auto 2.1 X10*3/uL (1.2-4.9); Lymphocytes Percent Auto 23.1 % (20-40); Mean Corpuscular Hemoglobin 28.1 pg (27.0-33.0); Mean Platelet Volume 10.3 fL (9.4-12.3); Monocytes Absolute Auto 0.8 X10*3/uL (0.1-1.2); Monocytes Percent Auto 9.2 % (2-11); Neutrophils Absolute Auto 5.3 x10*3/uL (2.0-8.3); Neutrophils Percent Auto 58.8 % (45-73); Platelet Count 269 X10*3/uL (160-400); Red Blood Count 4.98 X10*6/uL (4.20-5.50); Red Cell Distribution Width 13.6 % (11.0-16.0)
[2023-08-14 13:53] LABS: Appearance Urine Turbid; Color Urine Yellow; Glucose Urine UA Negative (Negative); Leukocyte Esterase Urine Large (3+) (Negative); Nitrite Urine Positive (Negative); UMIC TRIGGER UACC YES; Urine Blood Small (1+) (Negative); Urine Ketones Negative (Negative); Urine Protein Negative (Neg-Trace)
[2023-08-14 14:14] LABS: Bacteria Urine 4+ (None Seen); Hyaline Casts Urine 0-2 /LPF (0-2); UACC Culture Trigger YES; WBC Urine >50 /HPF (0-5)
[2023-08-14 14:16] LABS: Alanine Aminotransferase 12 U/L (0-31); Albumin Level 4.1 g/dL (3.5-5.0); Alkaline Phosphatase 82 U/L (39-117); Anion Gap 13 (12-20); Aspartate Amino Transferase 25 U/L (5-31); Bilirubin Total 0.4 mg/dL (0.0-1.0); Blood Urea Nitrogen 12 mg/dL (9-16); Calcium 10.1 mg/dL (8.4-10.2); Carbon Dioxide 27 mmol/L (22-29); Chloride 106 mmol/L (96-108); Cholesterol 150 mg/dL (<200); Estimated Glomerular Filt Rate > 60; Glucose Fasting 103 mg/dL (60-99); HDL Cholesterol 43 mg/dL (>40); LDL Cholesterol Calculated 82 mg/dL (<100); Potassium 4.2 mmol/L (3.3-5.1); Sodium 142 mmol/L (135-145); Triglycerides 129 mg/dL (<150)
[2023-08-14 14:34] LABS: Vitamin D 25-OH Total 61.1 ng/mL (>30)
== END 2023-08-14 09:35 | disposition home or self-care (01) ==
LOC: HO.HMGCLNP 09:34
PROVIDERS: PCP Internal Medicine; Visit Provider Internal Medicine
DX: E67.3 Hypervitaminosis D (principal)
CPT/HCPCS: 80053; 80061; 81001; 82306; 85025; 87086; 87088; 87186

== ENCOUNTER 2023-08-28 08:50 | Outpatient (REF) | payer MEDICARE, SELFPAY ==
[2023-08-28 13:43] LABS: Appearance Urine Clear; Color Urine Yellow; Glucose Urine UA Negative (Negative); Leukocyte Esterase Urine Moderate (2+) (Negative); Nitrite Urine Negative (Negative); UMIC TRIGGER UACC YES; Urine Blood Negative (Negative); Urine Ketones Negative (Negative); Urine Protein Negative (Neg-Trace)
[2023-08-28 13:46] LABS: Bacteria Urine None Seen (None Seen); Hyaline Casts Urine 0-2 /LPF (0-2); RBC Urine 0-2 /HPF (0-2); Squamous Epithelial Cell Urine 0-2 /HPF (0-2); UACC Culture Trigger YES
== END 2023-08-28 08:51 | disposition home or self-care (01) ==
LOC: HO.HMGCLNP 08:50
PROVIDERS: PCP Internal Medicine; Visit Provider Internal Medicine
DX: E78.00 Pure hypercholesterolemia, unspecified (principal); E67.3 Hypervitaminosis D
CPT/HCPCS: 81001; 87086

== ENCOUNTER 2023-10-16 14:24 | Outpatient (REF) | payer MEDICARE, SELFPAY ==
[2023-10-16 16:34] LABS: Anion Gap 11 (12-20); Blood Urea Nitrogen 17 mg/dL (9-16); Calcium 9.9 mg/dL (8.4-10.2); Carbon Dioxide 28 mmol/L (22-29); Chloride 106 mmol/L (96-108); Estimated Glomerular Filt Rate > 60; Glucose Random 86 mg/dL (60-115); Potassium 4.3 mmol/L (3.3-5.1); Sodium 141 mmol/L (135-145)
== END 2023-10-16 14:25 | disposition home or self-care (01) ==
LOC: HO.HMGCLDS 14:24
PROVIDERS: PCP Internal Medicine; Visit Provider Internal Medicine Endocrinology, Diabetes & Metabolism
DX: M81.0 Age-related osteoporosis without current pathological fracture (principal)
CPT/HCPCS: 36415; 80048; 82040; 82310

== ENCOUNTER 2023-10-29 12:44 | Outpatient (AMB) | payer MEDICARE, SELFPAY ==
--- NOTE | 2023-10-29 14:07 | AM.OFFVISNUR ---
Intake Intake Visit Reasons: Prolia inj Allergies No Known Allergies Allergy (Mild, Verified 08/11/23 13:01) NKA Office Meds Prolia 60 mg/mL subcutaneous syringe Performing Provider: Luis Fernando Rene MD [place] [facility] [place] Administered by: Rocío Adames LPN on 10/29/23 14:07 Dose Route Admin Location Dispensed Lot Number Expiration Date NDC Diesel Roller Operator 60 mg subcut Left upper arm 1 mL [id number] 10/28/25 [facility] Coding Assessment & Plan Assessment & Plan Orders: Orders AMB Denosumab Injection Practice Supplied Today M81.0 - Age-related osteoporosis without current pathological fracture
== END 2023-10-29 14:09 | disposition home or self-care (01) ==
PROVIDERS: PCP Internal Medicine; Visit Provider Internal Medicine Endocrinology, Diabetes & Metabolism
DX: M81.0 Age-related osteoporosis without current pathological fracture (principal)

== ENCOUNTER → 2023-10-29 12:44 | Outpatient (BNVA) | payer MEDICARE, SELFPAY | PROVIDERS: PCP Internal Medicine; Visit Provider Internal Medicine Endocrinology, Diabetes & Metabolism | DX: M81.0 Age-related osteoporosis without current pathological fracture (principal) | CPT/HCPCS: 96372; J0897 ==

== ENCOUNTER 2024-02-16 09:07 | Outpatient (REF) | payer MEDICARE, SELFPAY ==
[2024-02-16 11:09] LABS: Alanine Aminotransferase 17 U/L (0-31); Albumin Level 4.1 g/dL (3.5-5.0); Alkaline Phosphatase 58 U/L (39-117); Aspartate Amino Transferase 26 U/L (5-31); Bilirubin Direct 0.1 mg/dL (0.0-0.5); Bilirubin Total 0.4 mg/dL (0.0-1.0); Cholesterol 143 mg/dL (<200); HDL Cholesterol 42 mg/dL (>40); LDL Cholesterol Calculated 84 mg/dL (<100); Total Protein 7.7 g/dL (6.5-8.0); Triglycerides 88 mg/dL (<150)
== END 2024-02-16 09:08 | disposition home or self-care (01) ==
LOC: HO.HMGCLDS 09:07
PROVIDERS: PCP Internal Medicine; Visit Provider Internal Medicine Endocrinology, Diabetes & Metabolism
DX: E78.00 Pure hypercholesterolemia, unspecified (principal)
CPT/HCPCS: 36415; 80061; 80076

== ENCOUNTER 2024-03-08 11:36 | Outpatient (AMB) | payer MEDICARE, SELFPAY ==
[2024-03-08 11:37] VITALS: BP 120/70; PULSE 78; TEMP 36.7; O2SAT 96
--- NOTE | 2024-03-08 11:37 | MHC.OFFWIV ---
Intake Vital Signs 03/08/24 11:37 Height 5 ft 2 in BP 120/70 Blood Pressure Location Rt brachial Position Sitting Pulse 78 Pulse Source Pulse Oximeter Temp 98.0 F Temp Source Temporal Artery Scan Pulse Oximetry (%) 96 Oxygen Delivery Method Room Air Intake Visit Reasons: possible UTI Intake Note: pt is here for possible uti Patient Tobacco Use Status: Never used Tobacco Allergies No Known Allergies Allergy (Mild, Verified 03/08/24 11:37) NKA Do you need a note to return to daycare/school/sports/work: No HPI HPI Comments History of Present Illness Details Patient is 89-year-old female complaining of a possible urinary tract infection. She states for the last few days she has felt like she has to pee more frequently but then she goes and only a little bit comes out. She states it does hurt just a little bit when she has that bit of urine come out. She denies any fevers, low back pain, blood in her urine or dark urine. She has brought in her own urine sample today, she states she did not do a clean-catch but she has a problem urinating outside of her own home. [facility] Medical History Hyperparathyroidism Osteoporosis Vitamin D deficiency Surgical History History of right cataract surgery History of left cataract surgery Hx of eye surgery Hx of cholecystectomy Hx of total mastectomy of right breast Family History Father CVD (cardiovascular disease) Stroke Mother Heart disease Social History Alcohol intake: never Patient Tobacco Use Status: Never used Tobacco Review of Systems Const All systems reviewed & are unremarkable except as noted in HPI and below Physical Exam Vital Signs: Last Vital Signs Temp 98.0 F 03/08/24 11:37 Pulse 78 03/08/24 11:37 BP 120/70 03/08/24 11:37 Pulse Ox 96 03/08/24 11:37 Oxygen Delivery Method Room Air 03/08/24 11:37 Const General: cooperative, healthy appearing, comfortable, no acute distress and well developed Orientation/consciousness: patient oriented x3 Limitations: no limitations HEENT Head: Yes normal to inspection Eyes General: appearance normal, both eyes and all related structures Neck Neck: Yes normal visual inspection and Yes full ROM Resp Effort & Inspection: normal respiratory effort and able to speak in complete sentences General: Yes bladder normal to palpation and Yes no CVA tenderness Bimanual exam- vagina & uterus: bladder normal to palpation Back/Spine/Pelvis Back: no CVA tenderness Skin General skin exam: no rashes or lesions noted Neuro General: patient oriented x3 Extrem General: Yes normal to inspection Results AMB Urinalysis, Automated UA Leukoctes 500 Khalida/uL Last Edit by Sachin Coelho CMA on 03/08/24 11:57 UA Nitrite Negative Last Edit by Sachin Coelho CMA on 03/08/24 11:57 UA Urobilinogen 0.2 mg/dL Last Edit by Sachin Coelho CMA on 03/08/24 11:57 UA Protein 30 mg/dL Last Edit by Sachin Coelho CMA on 03/08/24 11:57 UA pH 6.0 Last Edit by Sachin Coelho CMA on 03/08/24 11:57 UA Blood 80 Max/uL Last Edit by Sachin Coelho CMA on 03/08/24 11:57 UA Specific [place] 1.015 Last Edit by Sachin Coelho CMA on 03/08/24 11:57 UA Ketone Negative Last Edit by Sachin Coelho CMA on 03/08/24 11:57 UA Bilirubin 0 mg/dL Last Edit by Sachin Coelho CMA on 03/08/24 11:57 UA Glucose 0 mg/dL Last Edit by Sachin Coelho CMA on 03/08/24 11:57 Results Reviewed Results Reviewed: Laboratory Last Values Urine pH (Auto) 6.0 03/08/24 11:55 Specific [place] (Auto) 1.015 03/08/24 11:55 Urine Protein (Auto) 30 mg/dL 03/08/24 11:55 Glucose (UA)(Auto) 0 mg/dL 03/08/24 11:55 Urine Ketones (Auto) Negative 03/08/24 11:55 Urine Blood (Auto) 80 Max/uL 03/08/24 11:55 Urine Nitrite (Auto) Negative 03/08/24 11:55 Urine Bilirubin (Auto) 0 mg/dL 03/08/24 11:55 Urine Urobilinogen (Auto) 0.2 mg/dL 03/08/24 11:55 Leukocyte Esterase (Auto) 500 Khalida/uL 03/08/24 11:55 Assessment & Plan Assessment & Plan (1) Urinary tract infection: Code(s): N39.0 - Urinary tract infection, site not specified Qualifiers: Hematuria presence: with hematuria Urinary tract infection type: acute cystitis Qualified Code(s): N30.01 - Acute cystitis with hematuria Plan: Will treat for UTI based on symptoms, she did show 3+ leukocytes 1+ protein and 2+ blood in her urine but again this was a dirty urine. Explained to patient that I will give her a clean-catch to take home and if she does not feel better after taking the antibiotics for a few days, she should repeat the UA with the clean-catch kit and bring it to the office so we can test it and send it for culture. Also explained she wants to make sure the blood in her urine resolved, likely secondary to infection at this time. No evidence on physical exam for a kidney stone but I did give red flag warning signs and when to go to the emergency department. Plan See above Orders: Orders AMB Urinalysis Automated Today Z13.9 - Encounter for screening, unspecified Medications: New cefuroxime axetil 500 mg PO Q12H 10 tabs 0RF Coding Level of Care Code Est Pt Level 3 (66212) Diagnoses Acute cystitis with hematuria N30.01 Hematuria presence: with hematuria Urinary tract infection type: acute cystitis
== END 2024-03-08 12:19 | disposition home or self-care (01) ==
PROVIDERS: PCP Internal Medicine; Visit Provider Physician Assistant
DX: N30.01 Acute cystitis with hematuria (principal)
CPT/HCPCS: 81003; 99213

== ENCOUNTER 2024-03-21 10:29 | Outpatient (REF) | payer MEDICARE, SELFPAY ==
[2024-03-21 13:18] LABS: Appearance Urine Clear; Color Urine Yellow; Glucose Urine UA Negative (Negative); Leukocyte Esterase Urine Large (3+) (Negative); Nitrite Urine Negative (Negative); PH 6.5 (5.0-9.0); UMIC TRIGGER UACC YES; Urine Blood Negative (Negative); Urine Ketones Negative (Negative); Urine Protein Negative (Neg-Trace)
[2024-03-21 13:24] LABS: Bacteria Urine None Seen (None Seen); Hyaline Casts Urine 0-2 /LPF (0-2); RBC Urine 0-2 /HPF (0-2); UACC Culture Trigger YES; WBC Urine 21-50 /HPF (0-5)
== END 2024-03-21 10:30 | disposition home or self-care (01) ==
LOC: HO.HMGCLDS 10:29
PROVIDERS: PCP Internal Medicine; Visit Provider Internal Medicine
DX: Z51.89 Encounter for other specified aftercare (principal); R82.79 Other abnormal findings on microbiological examination of urine
CPT/HCPCS: 81001; 87086

== ENCOUNTER 2024-04-07 17:59 | Outpatient (REF) | payer MEDICARE, SELFPAY ==
--- NOTE | ~2024-04-07 | MR_ITS ---
MRI OF THE LUMBAR SPINE WITHOUT CONTRAST CLINICAL INFORMATION: Sciatica on the right side. COMPARISON: None available. TECHNIQUE: Multiplanar multisequence MR imaging of the lumbar spine obtained without contrast. FINDINGS: There are 5 nonrib-bearing lumbar-type vertebral bodies. S1 is lumbarized sharing a rudimentary disc with S2. Severe disc volume loss at L5-S1 and moderate to severe disc volume loss at L4-L5. There are Modic type I endplate signal changes at L5-S1. No additional bone marrow edema. There are no acute fractures. The vertebral body heights are maintained. Conus terminates at the L1-L2 level. Bilateral parapelvic cysts. Bilateral paraspinal muscular atrophy. L1-L2: Small shallow central disc protrusion minimally just the ventral thecal sac. There is no foraminal stenosis. L2-L3: There is grade 1 retrolisthesis. Small annular disc bulge and mild bilateral facet arthropathy without central canal stenosis and without foraminal stenosis L3-L4: Small annular disc bulge and mild bilateral facet arthropathy. No central canal stenosis and no foraminal stenosis. L4-L5: Grade 1 degenerative anterolisthesis. Severe bilateral facet arthropathy and ligamentum flavum thickening. Findings in concert result in right subarticular zone stenosis and mass effect on the traversing right L5 nerve root. Mild central canal stenosis. Moderate right and mild left foraminal encroachment. L5-S1: Diffuse disc osteophyte complex and severe bilateral facet arthropathy and ligamentum flavum thickening. Findings in concert result in mild central canal stenosis and moderate left-sided foraminal stenosis with left lateral disc osteophyte resulting in mass effect on the extraforaminal left L5 nerve root. MR/MR lumbar spine wo con IMPRESSION: * Please note that S1 shares a rudimentary disc with S2. Using this counting system there is grade 1 anterolisthesis of L4 on L5. Please correlate with plain films prior to any percutaneous or surgical intervention. * At L5-S1, multifactorial degenerative changes result in mild central canal stenosis and moderate left-sided foraminal stenosis with left lateral disc osteophyte resulting in mass effect on the extraforaminal left L5 nerve root. Modic type I endplate signal changes at this level. * At L4-L5, grade 1 degenerative anterolisthesis and multifactorial degenerative changes result in right subarticular zone stenosis and mass effect on the traversing right L5 nerve root. Moderate right and mild left foraminal encroachment at this level. Electronically signed by: Eliecer Sanchez MD 04/20/2024 12:48 PM EDT RP
== END 2024-04-07 18:00 | disposition home or self-care (01) ==
LOC: HO.MRI 17:59
PROVIDERS: PCP Internal Medicine; Visit Provider Internal Medicine
DX: M54.31 Sciatica, right side (principal)
CPT/HCPCS: 72148

== ENCOUNTER 2024-04-21 11:48 | Outpatient (REF) | payer MEDICARE, SELFPAY ==
[2024-04-21 13:40] LABS: Calcium 10.5 mg/dL (8.4-10.2)
[2024-04-21 13:47] LABS: Albumin Level 4.3 g/dL (3.5-5.0); Anion Gap 12 (12-20); Blood Urea Nitrogen 15 mg/dL (9-16); Calcium 10.4 mg/dL (8.4-10.2); Carbon Dioxide 27 mmol/L (22-29); Chloride 106 mmol/L (96-108); Estimated Glomerular Filt Rate > 60; Glucose Random 92 mg/dL (60-115); Potassium 4.7 mmol/L (3.3-5.1); Sodium 140 mmol/L (135-145)
== END 2024-04-21 11:49 | disposition home or self-care (01) ==
LOC: HO.HMGCLDS 11:48
PROVIDERS: PCP Internal Medicine; Visit Provider Internal Medicine Endocrinology, Diabetes & Metabolism
DX: M81.0 Age-related osteoporosis without current pathological fracture (principal)
CPT/HCPCS: 36415; 80048; 82040; 82310

== ENCOUNTER 2024-04-22 10:44 | Outpatient (REF) | payer MEDICARE, SELFPAY ==
[2024-04-26 17:39] LABS: Calcium, Ionized 5.4 mg/dL (4.7-5.5)
== END 2024-04-22 10:45 | disposition home or self-care (01) ==
LOC: HO.HMGCLDS 10:44
PROVIDERS: PCP Internal Medicine; Visit Provider Internal Medicine Endocrinology, Diabetes & Metabolism
DX: E21.3 Hyperparathyroidism, unspecified (principal)
CPT/HCPCS: 36415; 82330

== ENCOUNTER 2024-04-28 12:54 | Outpatient (AMB) | payer MEDICARE, SELFPAY ==
--- NOTE | 2024-04-28 13:26 | AM.OFFVISNUR ---
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 Pt tolerated well. Pt denied any problems with previous injection.s Assessment & Plan Assessment & Plan Orders: Orders AMB Denosumab Injection Practice Supplied Today M81.0 - Age-related osteoporosis without current pathological fracture Medications: New Prolia (denosumab) 60 mg subcut ONCE 1 mL 0RF NS M81.0 - Age-related osteoporosis without current pathological fracture
== END 2024-04-28 13:21 | disposition home or self-care (01) ==
PROVIDERS: PCP Internal Medicine; Visit Provider Internal Medicine Endocrinology, Diabetes & Metabolism
DX: M81.0 Age-related osteoporosis without current pathological fracture (principal)

== ENCOUNTER → 2024-04-28 12:54 | Outpatient (BNVA) | payer MEDICARE, SELFPAY | PROVIDERS: PCP Internal Medicine; Visit Provider Internal Medicine Endocrinology, Diabetes & Metabolism | DX: M81.0 Age-related osteoporosis without current pathological fracture (principal) | CPT/HCPCS: 82607; 82746; 85025; 96372; J0897 ==

== ENCOUNTER 2024-04-28 17:12 | Outpatient (REF) | payer MEDICARE, SELFPAY ==
[2024-04-28 17:15] LABS: MANUAL DIFF FLAG NO
[2024-04-28 17:27] LABS: Basophils Absolute Auto 0.1 X10*3/uL (0.0-0.2); Eosinophils Absolute Auto 0.2 X10*3/uL (0.0-0.4); Eosinophils Percent Auto 2.3 % (0-4); Hematocrit 38.7 % (37.0-47.0); Hemoglobin 12.5 g/dl (12.0-16.0); Imm Gran Abs Auto 0.03 X10*3/uL (0.00-0.03); Imm Gran Pct Auto 0.3 % (0.0-0.4); Lymphocytes Absolute Auto 3.1 X10*3/uL (1.2-4.9); Lymphocytes Percent Auto 31.8 % (20-40); Mean Corpuscular HGB Conc 32.3 g/dl (31.0-35.0); Mean Corpuscular Hemoglobin 28.7 pg (27.0-33.0); Mean Corpuscular Volume 88.8 fL (80.0-98.0); Monocytes Percent Auto 9.7 % (2-11); Neutrophils Absolute Auto 5.4 x10*3/uL (2.0-8.3); Neutrophils Percent Auto 54.9 % (45-73); Platelet Count 208 X10*3/uL (160-400); Red Blood Count 4.36 X10*6/uL (4.20-5.50); Red Cell Distribution Width 13.8 % (11.0-16.0); White Blood Count 9.9 X10*3/uL (4.8-10.8)
[2024-04-28 18:55] LABS: Folate > 20.0 ng/mL (> or = 4.0); Vitamin B12 945 pg/mL (200-900)
== END 2024-04-28 17:13 | disposition home or self-care (01) ==
LOC: HO.LNP 17:12
PROVIDERS: Visit Provider Internal Medicine
DX: Z13.89 Encounter for screening for other disorder (principal)
CPT/HCPCS: 82607; 82746; 85025

== ENCOUNTER 2024-05-12 12:47 | Outpatient (AMB) | payer MEDICARE, SELFPAY ==
[2024-05-12 13:08] VITALS: BP 132/56; PULSE 75; BMI 21.0
--- NOTE | 2024-05-12 13:08 | MHC.OFFVIS ---
Vital Signs 05/12/24 13:08 Height 5 ft 1.93 in Weight 114 lb 10.246 oz BMI 21.0 BP 132/56 L Blood Pressure Location Lt brachial Position Sitting Pulse 75 Pulse Source Pulse Oximeter Intake Visit Reasons: f/u osteoporosis-no vm Intake Note: Patient present today for Osteoporosis follow up visit. Care Aid Required: No Accompanied by: Spouse Allergies No Known Allergies Allergy (Mild, Verified 05/12/24 13:09) NKA HPI Comments Details: 89 YO Female who is seen in F/U for Osteoporosis. First diagnosed in 2001. Received treatment in the past with Fosamax from 2001 to 2010. She did fail treatment with Fosamax as she had acute worsening of her BMD while on treatment. She was diagnosed with bilateral breast cancer and had a R sided mastectomy. She was treated with Chemo/Radiation and was also treated with Anastrazole from 1430-2241. She had a repeat BMD in 2019, which revealed a loss of BMD of 16% in her L hip. After her initial visit with me she underwent full biochemical workup for secondary causes of Osteoporosis 08/09/19. Her Calcium was high normal at 10.4, albumin 4.4, Vitamin D 52, and PTH of 45, indicating likely mild primary hyperparathyroidism. She opted for medical management and no surgical parathyroidectomy. Decision was made to proceed with Prolia. She received 6 doses so far 10/12/2019, 04/11/2020, 10/17/2020, 04/18/2021, 10/23/2021, 04/23/2022. No history of pathologic fracture or ONJ. Has 4 servings of dietary calcium per day in the form of almond milk, cheese and ice cream. Does not take a Calcium Supplement. Does not take Vitamin D supplement. Denies ever using PPI, anticoagulant, antiepileptic or glucocorticoid medication. Does weight bearing exercise most days of the week in the form of walking. Walks between 62751-59592 steps per day. She also does [employer] and rides a bike. Fracture history: Denies any fractures. 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 Menses was always regular. , she did not breastfeed. Menopause was mid 50's. Did use HRT from from age 53 for 8 years until the year 1999. History of Kidney stones: Denies. Denies Family history of Osteoporosis or hip fracture. UTD on dental cleanings and sees dentist every 6 months. No planned upcoming dental work or extractions. DXA dated 05/07/2021: FINDINGS: AP SPINE L1-L3 (excluding L4): The data of L1-L4 has been changed to exclude the L4 vertebral body, because degenerative changes at this level may cause overestimation of lumbar spine density. Current: BMD 0.801 g/cm2, Z-score -0.6, T-score -3.1, osteoporosis, 6.9% increase from previous, 0.2% decrease from baseline (<5% change is not significant). Prior: BMD 0.749 g/cm2. Baseline: BMD 0.803 g/cm2. LEFT FEMUR, NECK: Current: BMD 0.854 g/cm2, Z-score 1.4, T-score -1.3, osteopenia. Prior: BMD 0.752 g/cm2. Baseline: BMD 0.846 g/cm2. LEFT FEMUR, TOTAL: Current: BMD 0.820 g/cm2, Z-score 1.2, T-score -1.5, osteopenia, 18.2% increase from previous, 4.3% decrease from baseline (<5% change is not significant). Prior: BMD 0.694 g/cm2. Baseline: BMD 0.857 g/cm2. Labs: Laboratory Tests 10/13/22 10/13/22 10/14/22 13:43 13:43 04:50 Creatinine 0.83 Estimated GFR > 60 N-Telopeptide X-linked 15 25-OH Vitamin D Total 39.9 PTH Intact 62 Calcium (PTH Intact) 10.0 On Prolia 60 mg q.6 months. [facility] Medical History Hyperparathyroidism Osteoporosis Vitamin D deficiency Surgical History History of right cataract surgery History of left cataract surgery Hx of eye surgery Hx of cholecystectomy Hx of total mastectomy of right breast Family History Father CVD (cardiovascular disease) Stroke Mother Heart disease Social History Alcohol intake: never Patient Tobacco Use Status: Never used Tobacco Physical Exam Vital Signs: BMI result Body Mass Index 21.0 Assessment & Plan Assessment & Plan (1) Osteoporosis: Code(s): M81.0 - Age-related osteoporosis without current pathological fracture Category: Medical Qualifiers: Osteoporosis type: unspecified Presence of current pathological fracture: unspecified Qualified Code(s): M81.0 - Age-related osteoporosis without current pathological fracture Plan: This 89-year-old white female with history of osteoporosis with negative secondary workup currently being treated with Prolia 60 mg Q 6 months. Last DEXA bone density has improved with Prolia. Plan is to continue the Prolia, Could consider transitioning to bisphosphonate oral or IV if repeat DEXA shows improvement next year Coding Level of Care Code Est Pt Level 3 (93569) Diagnoses Osteoporosis, unspecified osteoporosis type, unspecified pathological fracture presence M81.0 Osteoporosis type: unspecified Presence of current pathological fracture: unspecified
== END 2024-05-12 13:39 | disposition home or self-care (01) ==
PROVIDERS: PCP Internal Medicine; Visit Provider Internal Medicine Endocrinology, Diabetes & Metabolism
DX: M81.0 Age-related osteoporosis without current pathological fracture (principal)
CPT/HCPCS: 99213

== ENCOUNTER → 2024-05-12 12:47 | Outpatient (BNVA) | payer MEDICARE, SELFPAY | PROVIDERS: PCP Internal Medicine; Visit Provider Internal Medicine Endocrinology, Diabetes & Metabolism | DX: M81.0 Age-related osteoporosis without current pathological fracture (principal); E55.9 Vitamin D deficiency, unspecified; E21.3 Hyperparathyroidism, unspecified; Z79.620 Long term (current) use of immunosuppressive biologic | CPT/HCPCS: 99212 ==

== ENCOUNTER 2024-08-29 08:51 | Outpatient (REF) | payer MEDICARE, SELFPAY ==
[2024-08-29 09:59] LABS: MANUAL DIFF FLAG NO
[2024-08-29 10:04] LABS: Basophils Absolute Auto 0.1 X10*3/uL (0.0-0.2); Basophils Percent Auto 1.2 % (0-2); Eosinophils Absolute Auto 0.3 X10*3/uL (0.0-0.4); Eosinophils Percent Auto 3.5 % (0-4); Hematocrit 41.6 % (37.0-47.0); Hemoglobin 13.7 g/dl (12.0-16.0); Imm Gran Abs Auto 0.03 X10*3/uL (0.00-0.03); Imm Gran Pct Auto 0.3 % (0.0-0.4); Lymphocytes Absolute Auto 2.8 X10*3/uL (1.2-4.9); Lymphocytes Percent Auto 31.2 % (20-40); Mean Corpuscular HGB Conc 32.9 g/dl (31.0-35.0); Mean Corpuscular Hemoglobin 28.8 pg (27.0-33.0); Mean Corpuscular Volume 87.4 fL (80.0-98.0); Mean Platelet Volume 10.4 fL (9.4-12.3); Monocytes Absolute Auto 0.8 X10*3/uL (0.1-1.2); Monocytes Percent Auto 9.2 % (2-11); Neutrophils Absolute Auto 4.9 x10*3/uL (2.0-8.3); Neutrophils Percent Auto 54.6 % (45-73); Platelet Count 242 X10*3/uL (160-400); Red Blood Count 4.76 X10*6/uL (4.20-5.50); Red Cell Distribution Width 13.6 % (11.0-16.0); White Blood Count 8.9 X10*3/uL (4.8-10.8)
[2024-08-29 10:07] LABS: Appearance Urine Turbid; Color Urine Yellow; Glucose Urine UA Negative (Negative); Leukocyte Esterase Urine Large (3+) (Negative); Nitrite Urine Positive (Negative); PH 6.5 (5.0-9.0); Specific Gravity - Urine 1.015 (1.005-1.025); UMIC TRIGGER UACC YES; Urine Blood Small (1+) (Negative); Urine Ketones Negative (Negative); Urine Protein 30 (1+) mg/dL (Neg-Trace)
[2024-08-29 10:31] LABS: Alanine Aminotransferase 15 U/L (0-31); Albumin Level 4.2 g/dL (3.5-5.0); Alkaline Phosphatase 54 U/L (39-117); Anion Gap 12 (12-20); Aspartate Amino Transferase 29 U/L (5-31); Bilirubin Direct 0.2 mg/dL (0.0-0.5); Bilirubin Total 0.6 mg/dL (0.0-1.0); Blood Urea Nitrogen 15 mg/dL (9-16); Calcium 9.9 mg/dL (8.4-10.2); Carbon Dioxide 26 mmol/L (22-29); Chloride 107 mmol/L (96-108); Cholesterol 149 mg/dL (<200); Estimated Glomerular Filt Rate 60; Glucose Fasting 106 mg/dL (60-99); HDL Cholesterol 52 mg/dL (>40); LDL Cholesterol Calculated 83 mg/dL (<100); Potassium 3.8 mmol/L (3.3-5.1); Sodium 141 mmol/L (135-145); Total Protein 7.7 g/dL (6.5-8.0); Triglycerides 74 mg/dL (<150)
[2024-08-29 10:43] LABS: Bacteria Urine 2+ (None Seen); Hyaline Casts Urine 0-2 /LPF (0-2); UACC Culture Trigger YES; WBC Clumps Urine Present; WBC Urine >50 /HPF (0-5)
== END 2024-08-29 08:52 | disposition home or self-care (01) ==
LOC: HO.HMGCLDS 08:51
PROVIDERS: PCP Internal Medicine; Visit Provider Internal Medicine
DX: M81.0 Age-related osteoporosis without current pathological fracture (principal); E78.00 Pure hypercholesterolemia, unspecified; E67.3 Hypervitaminosis D; G45.9 Transient cerebral ischemic attack, unspecified; R82.90 Unspecified abnormal findings in urine
CPT/HCPCS: 36415; 80053; 80061; 80076; 81001; 81003; 82248; 82306; 85025; 87086

== ENCOUNTER 2024-09-27 11:00 | Outpatient (REF) | payer MEDICARE, SELFPAY ==
--- OUTSIDE RECORDS SUMMARY | 2024-09-27 13:40 | XMS_ITS ---
Author Organization Stevenson Ahn MD Address [address] [place] [phone] Care Team Providers Care Baggage Screener Name Role Phone Stevenson Ahn Primary Care Provider REASON FOR VISIT URINALYSIS AND MICROSCOPIC Encounters Encounter Location Date Provider Diagnosis Stevenson Ahn MD [address] [place] [phone] 09/27/2024 Stevenson Ahn Microscopic hematuria R31.29 Assessments Encounter Date Diagnosis (ICD Code) Assessment Notes Treatment Notes Treatment Clinical Notes Section Notes 09/27/2024 Microscopic hematuria (ICD-10 - R31.29) Plan Of Treatment Pending Test Test Name Order Date Urinalysis and Microscopic 09/27/2024 Next Appt Details Provider Name:Stevenson mays, 03/10/2025 08:30:00 AM, [address] [place] [address], [address] [place] [address], [phone], Provider Name:Stevenson mays, 08/29/2025 08:15:00 AM, [address] [place] [address], [address], [phone], Provider Name:Stevenson mays, 09/07/2025 01:30:00 PM, [address] [place] [address], [address], [phone], Progress Notes * Merlyn FERNANDEZ ADOB:[birth year] (89 yo F)Acc No.[id number]:09/27/2024 Progress Note Patient:Merlyn RAINEY Provider:?Stevenson Ahn MD :1935???Age:89 Y???Sex:Female D ate:09/27/2024 Address:[address] [place], [place] [phone] Subjective: * Chief Complaints: * ???1. URINALYSIS AND MICROSC OPIC. * Medical History:? Objective: * Vitals:? Assessment: * Assessment: 1.?Microscopic hematuria - R 31.29??? Plan: * Treatment: * * The named appointment provid er may or may not be the originator of this progress note, and it is not deemed complete until electronically signed by the appointment provider. Sign off status: Pending * Provider:?Stevenson Ahn MD Date:?0 09/27/2024 Generated for Rosamaria smallwood/Cortez/Mushtaqsmitting on:?09/27/2024 01:40 PM EST
--- OUTSIDE RECORDS SUMMARY | 2024-09-27 13:41 | XMS_ITS ---
Author Organization Stevenson Ahn MD Address [address] [facility] [address] [place], [place] [phone] Care Team Providers Care Web Content Executive Name Role Phone Stevenson Ahn Primary Care Provider Medications Medication SIG (Take, Route, Fr equency, Duration) Notes Start Date End Date Status Bactrim DS 800-160 MG 1 tablet Orally tw ice a day for 7 days 09/02/2024 Active Encounters Encounter Location Date Provider Diagnosis Stevenson Ahn MD [address] [facility] [address] [place] [phone] 09/02/2024 Stevenson Ahn Plan Of Treatment Medication Medication Name Sig Start Date Stop Date Notes Bactrim DS 800-160 MG 1 tablet Orally tw ice a day for 7 days 09/02/2024 Next Appt Details Provider Name:Stevenson mays, 03/10/2025 08:30:00 AM, [address] [place] [address], [address] [place] [address], [phone], Provider Name:Stevenson mays, 08/29/2025 08:15:00 AM, [address] [place] [address], [place] [address], [place], [place], [phone], Provider Name:Stevenson mays, 09/07/2025 01:30:00 PM, [address] [place] [address], [address], [phone], Progress Notes * Merlyn FERNANDEZ ADOB:[birth year] (89 yo F)Acc No.[id number]:09/02/2024 Patient:?Merlyn Fernandez :1935???Age:89 Y???Sex:Female Address:[address] [place] [phone] * Refills? Start Bactrim DS Tablet, 800-160 MG, Orally, 14 Tablet, 1 tablet, twice a day, 7 days * true * Date:? Generated for Rosamaria smallwood/Cortez/Mushtaqsmitting on:?09/27/2024 01:41 PM EST
--- OUTSIDE RECORDS SUMMARY | 2024-09-27 13:41 | XMS_ITS ---
Author Organization Stevenson Ahn MD Address [address] [place], [place] [phone] Care Team Providers Care Clerk Of Scales Name Role Phone Stevenson Ahn Primary Care Provider [phone] Allergies No Known Allergies REASON FOR VISIT [...] Ahn MD [address] [place], [place] [phone] 09/02/2024 Stevenson Ahn Microscopic hematuri a R31.29 [...] ontinue curent regiment Depression screening negative screen Pending Test Test Name Order Date Urinalysis and Microscopic 09/02/2024 Next Appt Details Provider Name:Stevenson mays, 03/10/2025 08:30:00 AM, [address] [place] [address], [address], [phone], Provider Name:Stevenson mays, 08/29/2025 08:15:00 AM, [address] [place] [address], [address], [phone], Provider Name:Stevenson mays, 09/07/2025 01:30:00 PM, [address] [place] [address], [address], [phone], Progress Notes * Merlyn FERNANDEZ ADOB:[birth year] (89 yo F)Acc No.[id number]:09/02/2024 Patient:?Merlyn Fernandez A Provider:?Stevenson Ahn MD :1935???Age:89 Y???Sex:Female D ate:09/02/2024 Address:[address] [place], [place] [address] , [place] [id number] Subjective: * Chief Complaints: * ???Review labs * HPI: ???Depression Screening:?PHQ-9?Little interest or pleasure in doing things?Not at all,?Feeling down, depressed, or hopeless?Not at all,?Trouble falling or staying asleep, or sleeping too much?Not at all,?Feeling tired or having little energy?Not at all,?Poor appetite or overeating?Not at all,?Feeling bad about yourself or that you are a failure, or have let yourself or your family down?Not at all,?Trouble concentrating on things, such as reading the newspaper or watching television?Not at all,?Moving or speaking so slowly that other people could have noticed; or the opposite, being so fidgety or restless that you have been moving around a lot more than usual?Not at all,?Thoughts that you would be better off or of hurting yourself in some way?Not at all,?Total Score?0.?Interpretation and Intervention?Depression Screening Findings?Negative,?Follow-Up for Depression?: review of PHQ-9 found negative result, no follow-up needed.?Communication Needs:?Communication Needs?Does the patient have a hearing impairment?No,?Does the patient have a vision impairment??Yes,?If yes, what is the vision impairment??Glasses,?Does the patient have a cognition impairment??No.?Fall Risk:?History?Have you had any falls with injury in the past year??No,?Have you had two or more falls in the past year??No.?SDOH Questions:?SDOH Questions?In the past year have you been worried about losing housing??No,?In the past year have you or any family members you live with been unable to get any of the following when it was really needed? Check all that apply:?None.? * ROS:?General/Constitutional:?Change in appetite?denies.?Chills?denies.?Fever?denies.?Ophthalmologic:?Blurred vision?denies.?Discharge?denies.?Pain?denies.?ENT:?Decreased hearing?denies.?Sore throat?denies.?Swollen glands?denies.?Endocrine:?Cold intolerance?denies.?Excessive thirst?denies.?Heat intolerance?denies.?Weight loss?denies.?Respiratory:?Cough?denies.?Shortness of breath at rest?denies.?Shortness of breath with exertion?denies.?Wheezing?denies.?Cardiovascular:?Chest pain at rest?denies.?Chest pain with exertion?denies.?Irregular heartbeat?denies.?Shortness of breath?denies.?Gastrointestinal:?Abdominal pain?denies.?Change in bowel habits?denies.?Diarrhea?denies.?Nausea?denies.?Rectal bleeding?denies.?Vomiting?denies .?Genitourinary:?Blood in urine?denies.?Difficulty urinating?denies.?Frequent urination?denies.?Urinary incontinence?Denies.?Musculoskeletal:?Painful joints?denies.?Weakness?denies.?Skin:?Dry skin?denies.?Itching?denies.?Denies?Mole(s),? changes in moles, new moles or any lesions of concern.?Denies?Photosensitivity.?Rash?denies.?Neurologic:?Dizziness?denies.?Fainting?denies.?Headache?denies.? * Medical History:? * Surgical History:? * Hospitalization/Major Diagno stic Procedure:? * Family History:?Father: dece ased 78 yrs.?Mother: 78 yrs.?1 brother(s) , 2 sister(s) . 3 daughter(s) . .? Father cve Mother Cardiac , Denies mental health/substance abuse family history, No pertinent family medical history, Denies mental health/substance abuse family history, Denies mental health/substance abuse family history, Denies mental health/substance abuse family history. * Social History:?Tobacco Use:?Tobacco Use/Smoking?Patient is a?nonsmoker,?Additional Findings: Tobacco Non-User?Current non-smoker, currently using no form of tobacco.?Drugs/Alcohol:?Alcohol Screen?Did you have a drink containing alcohol in the past year??No,?Points?0,?Interpretation?Negative.?Miscellaneous:?no Caffeine. Children: yes. no Community involvements. Exercise: yes, ride bike tap dancing total gym yoga. Home smoke detector use: yes. Housing: owning. Living with: spouse. Marital status: . Occupation: retired. Pets: none. no Travel outside of the [place]. * Medications:?TakingProlia 60 MG/ML Solution Prefilled Syringe as directed [...] reviewed and reconciled with the patient * Allergies:?N.K.D.A.yes[Aller gies Verified] Objective: * Vitals:?Ht: 62, Wt:111, BMI: 20.30, BP:122/60 weight is up 3 pounds since 04-22-24. * ???Past Orders: ???Lab:Vitamin D 25-OH Total (Order Date - 08/29/2024) (Collection Date - 08/29/2024) ? Value Reference Range ?Vitamin D 25-OH Total 69.0 >30 - ng/mL ???Lab:Urine Culture (Order Date - 08/29/2024) (Collection Date - 08/29/2024) ? Value Reference Range ?Urine Culture urogenital contamination. - ???Lab:Complete Blood Count Auto Diff (Order Date - 08/29/2024) (Collection Date - 08/29/2024) ? Value Reference Range ?White Blood Count 8.9 4. 8-10.8 - X10*3/uL ?Red Blood Count 4.76 4.20 -5.50 - X10*6/uL ?Hemoglobin 13.7 12.0-16.0 - g/dl ?Hematocrit 41.6 37.0-47.0 - % ?Mean Corpuscular Volume 87.4 80.0-98.0 - fL ?Mean Corpuscular Hemoglobin 28.8 27.0-33.0 - pg ?Mean Corpuscular HGB Conc 32.9 31.0-35.0 - g/dl ?Red Cell Distributio n Width 13.6 11.0-16.0 - % ?Platelet Count 242 160-4 00 - X10*3/uL ?Mean Platelet Volume 10.4 9.4-12.3 - fL ?Neutrophils Percent Auto 54.6 45-73 - % ?Imm Gran Pct Auto 0.3 0. 0-0.4 - % ?Lymphocytes Percent Auto 31.2 20-40 - % ?Monocytes Percent Auto 9.2 2-11 - % ?Eosinophils Percent Auto 3.5 0-4 - % ?Basophils Percent Auto 1.2 0-2 - % ?NRBC Pct Auto 0.0 0.0-0. 2 - /100WBC ?Neutrophils Absolute Auto 4.9 2.0-8.3 - x10*3/uL ?Imm Gran Abs Auto 0.03 0. 00-0.03 - X10*3/uL ?Lymphocytes Absolute Auto 2.8 1.2-4.9 - X10*3/uL ?Monocytes Absolute Auto 0.8 0.1-1.2 - X10*3/uL ?Eosinophils Absolute Auto 0.3 0.0-0.4 - X10*3/uL ?Basophils Absolute Auto 0.1 0.0-0.2 - X10*3/uL ?NRBC Abs Auto 0.000 0.0-0. 012 - X10*3/uL ???Lab:Comprehensive [place]. P saul Fast (Order Date - 08/29/2024) (Collection Date - 08/29/2024) ? Value Reference Range ?Sodium 141 135-145 - mmol/L ?Bilirubin Total 0.6 0.0- 1.0 - mg/dL ?Aspartate Amino Transferase 29 5-31 - U/L ?Alanine Aminotransferase 15 0-31 - U/L ?Total Protein 7.7 6.5-8. 0 - g/dL ?Albumin Level 4.2 3.5-5. 0 - g/dL ?Alkaline Phosphatase 54 39-117 - U/L ?Potassium 3.8 3.3-5.1 - mmol/L ?Chloride 107 96-108 - mm ol/L ?Carbon Dioxide 26 22-29 - mmol/L ?Anion Gap 12 12-20 - ?Blood Urea Nitrogen 15 9-16 - mg/dL ?Creatinine 0.89 0.5-1.4 - mg/dL ?Estimated Glomerular Filt Rate 60 - ?Glucose Fasting 106 H 60-9 9 - mg/dL ?Calcium 9.9 8.4-10.2 - mg/dL ???Lab:Liver Panel (Order Da te - 08/29/2024) (Collection Date - 08/29/2024) ? Value Reference Range ?Bilirubin Direct 0.2 0.0 -0.5 - mg/dL ???Lab:Lipid Panel (Order Da te - 08/29/2024) (Collection Date - 08/29/2024) ? Value Reference Range ?Triglycerides 74 <150 - mg/dL ?Cholesterol 149 <200 - m g/dL ?LDL Cholesterol Calculated 83 <100 - mg/dL ?HDL Cholesterol 52 >40 - mg/dL * Examination: ???General Examination: ?GENERAL APPEARANCE:?well developed, well nourished, in no acute distress.?HEAD:?normocephalic, atraumatic.?EYES:?pupils equal, round, reactive to light and accommodation, sclera non-icteric.?EARS:?normal.?ORAL CAVITY:?mucosa moist.?THROAT:?clear.?NECK/THYROID:?neck supple, full range of motion, no cervical lymphadenopathy, no bruits.?SKIN:?warm and dry, no suspicious lesions.?HEART:?regular rate and rhythm, S1, S2 normal, no murmurs.?LUNGS:?clear to auscultation bilaterally.?BREASTS:?done by tar distillation supervisor.?ABDOMEN:?soft, nontender, nondistended, bowel sounds present, normal, no organomegaly , no masses palpable.?RECTAL EXAM:?done by tar distillation supervisor.?FEMALE GENITOURINARY:?done by tar distillation supervisor.?EXTREMITIES:?no clubbing, cyanosis, or edema.?NEUROLOGIC:?nonfocal, motor strength normal upper and lower extremities, sensory exam intact.? 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 Plan: * Treatment: 2.?Hypervitaminosis D? Notes: good vit d, will continue to monitor and continue current regiment?? 3.?Sciatica of right side? Notes: doing well with exercise?? 4.?Pure hypercholesterolemia ? Continue Atorvastatin Calcium Tablet, 20 MG, TAKE 1 TABLET ONCE DAILY, Orally, Once a day.?? Notes: stable, will continue curent regiment?? 5.?Depression screening? Notes: negative screen?? * Procedure Codes:? * * Sign off status: Completed true * Provider:?Stevenson Ahn MD Date:?0 09/02/2024 Generated for Rosamaria smallwood/Cortez/Prabhaitting on:?09/27/2024 01:40 PM EST History and Physical Notes * HPI (History [...] had two or more falls in the year?: No Communication Needs Communication Needs Does the patient have a hearing impairment: No Does the patient have a vision impairmen t?: Yes ?If yes, what is the vision impairment?: Glasses Does the patient have a cognition impair ment?: No Examination Category Sub-Category Detail Notes Category Not es General Examination GENERAL APPEARANCE: well dev eloped, well nourished, in no acute distress HEAD: normocephalic, atrau matic EYES: pupils equal, round, reactive to light and accommodation, sclera non- icteric EARS: normal THROAT: clear NECK/THYROID: neck supple, [...] cyanosi s, or edema BREASTS: done by tar distillation supervisor RECTAL EXAM: done by tar distillation supervisor FEMALE GENITOURINARY: done by tar distillation supervisor ORAL CAVITY: mucosa moist
[2024-09-27 16:17] LABS: Appearance Urine Clear; Color Urine Yellow; Glucose Urine UA Negative (Negative); Leukocyte Esterase Urine Small (1+) (Negative); Nitrite Urine Negative (Negative); UMIC TRIGGER UA YES; Urine Blood Negative (Negative); Urine Ketones Negative (Negative); Urine Protein Negative (Neg-Trace)
[2024-09-27 16:36] LABS: Bacteria Urine None Seen (None Seen); Hyaline Casts Urine 0-2 /LPF (0-2); RBC Urine 0-2 /HPF (0-2); WBC Urine 0-5 /HPF (0-5)
== END 2024-09-27 11:01 | disposition home or self-care (01) ==
LOC: HO.HMGCLNP 11:00
PROVIDERS: PCP Internal Medicine; Visit Provider Internal Medicine
DX: R31.29 Other microscopic hematuria (principal)
CPT/HCPCS: 81001

== ENCOUNTER 2024-10-25 12:06 | Outpatient (REF) | payer MEDICARE, SELFPAY ==
[2024-10-25 13:56] LABS: Albumin Level 4.1 g/dL (3.5-5.0); Anion Gap 11 (12-20); Blood Urea Nitrogen 20 mg/dL (9-16); Calcium 9.9 mg/dL (8.4-10.2); Carbon Dioxide 27 mmol/L (22-29); Chloride 109 mmol/L (96-108); Estimated Glomerular Filt Rate > 60; Glucose Random 84 mg/dL (60-115); Potassium 3.8 mmol/L (3.3-5.1); Sodium 143 mmol/L (135-145)
--- OUTSIDE RECORDS SUMMARY | 2024-10-25 14:47 | XMS_ITS ---
Author Organization Stevenson Ahn MD Address [address] [place], [place] [phone] Care Team Providers Care Floor Trader Name Role Phone Stevenson Ahn Primary Care Provider Results Component Value Reference Range Notes Urinalysis and Microscopic Reviewed date:09/29/2024 04:54:58 PM Interpretation: Performing Lab:[facility], [address] [place] [phone] Notes/Report: Color Urine Yellow Appearance Urine Clear PH 7.0 5.0-9.0 Glucose Urine UA Negative Negative mg/dL Urine Blood Negative Negative Specific [place] - Urine 1.020 1.005-1.025 Urine Protein Negative [...] Ahn MD [address] [place], [place] [phone] 09/27/2024 Stevenson Ahn Microscopic hematuria R31.29 Assessments Encounter Date Diagnosis (ICD Code) Assessment Notes Treatment Notes Treatment Clinical Notes Section Notes 09/27/2024 Microscopic hematuria (ICD-10 - R31.29) Plan Of Treatment Next Appt Details Provider Name:Stevenson Canseco chanellr, 03/10/2025 08:30:00 AM, [address], [address], [place], [phone], Provider Name:Stevenson mays, 08/29/2025 08:15:00 AM, [address], [address], [place], [phone], Provider Name:Stevenson Canseco ier, 09/07/2025 01:30:00 PM, [address], [address], [place], [phone], Progress Notes * Merlyn FERNANDEZ ADOB:[birth year] (89 yo F)Acc No.[id number]:09/27/2024 Progress Note Patient:?Merlyn FERNANDEZ Provider:?Stevenson Anh MD :1935???Age:89 Y???Sex:Female D ate:09/27/2024 Address:[address] [place], [place] [phone] Subjective: * Chief Complaints: * ???1. URINALYSIS [...] Ahn MD Date:?0 09/27/2024 Generated for Rosamaria smallwood/Cortez/eTransmitting on:?10/25/2024 02:46 PM EST
--- OUTSIDE RECORDS SUMMARY | 2024-10-25 14:47 | XMS_ITS ---
Author Organization Stevenson Ahn MD Address [address] [facility] [address] [place], [place] [phone] Care Team Providers Care Lab Director Name Role Phone Stevenson Ahn Primary Care Provider [phone] Medications Medication SIG (Take, Route, Fr equency, Duration) Notes Start Date End Date Status Bactrim DS 800-160 MG 1 tablet Orally tw ice a day for 7 days 09/02/2024 Active Encounters Encounter Location Date Provider Diagnosis Stevenson Ahn MD [address] [facility] [address] [place] [phone] 09/02/2024 Stevenson Ahn Plan Of Treatment Medication Medication Name Sig Start Date Stop Date Notes Bactrim DS 800-160 MG 1 tablet Orally tw ice a day for 7 days 09/02/2024 Next Appt Details Provider Name:Stevenson mays, 03/10/2025 08:30:00 AM, [address] [place] [address], [address] [place] [address], [phone], Provider Name:Stevenson mays, 08/29/2025 08:15:00 AM, [address] [place] [address], [place] [address], [place], [place], [phone], Provider Name:Stevenson mays, 09/07/2025 01:30:00 PM, [address] [place] [address], [address], [phone], Progress Notes * Merlyn FERNANDEZ ADOB:[birth year] (89 yo F)Acc No.[id number]:09/02/2024 Patient:?Merlyn Fernandez :1935???Age:89 Y???Sex:Female Address:[address] [place] [phone] * Refills? Start Bactrim DS Tablet, 800-160 MG, Orally, 14 Tablet, 1 tablet, twice a day, 7 days * true * Date:? Generated for Rosamaria smallwood/Cortez/Mushtaqsmitting on:?10/25/2024 02:47 PM EST
--- OUTSIDE RECORDS SUMMARY | 2024-10-25 14:47 | XMS_ITS ---
Author Organization Stevenson Ahn MD Address [address] [place], [place] [phone] Care Team Providers Care Resolution Expert Name Role Phone Stevenson Ahn Primary Care Provider Allergies No Known Allergies REASON FOR VISIT [...] Ahn MD [address] [place], [place] [phone] 09/02/2024 Stevenson Ahn Microscopic hematuri a R31.29 [...] negative screen Next Appt Details Provider Name:Stevenson mays, 03/10/2025 08:30:00 AM, [address] [place] [address], [address], [phone], Provider Name:Stevenson mays, 08/29/2025 08:15:00 AM, [address] [place] [address], [address], [phone], Provider Name:Stevenson mays, 09/07/2025 01:30:00 PM, [address] [place] [address], [address] [place] [address], [phone], Progress Notes * Merlyn FERNANDEZ ADOB:[birth year] (89 yo F)Acc No.[id number]:09/02/2024 Patient:?Merlyn Fernandez Provider:?Stevenson Ahn MD :1935???Age:89 Y???Sex:Female D ate:09/02/2024 Address:[place], [id number] Subjective: * Chief Complaints: * ???Review labs [...] Auto 0.000 0.0-0. 012 - X10*3/uL ???Lab:Comprehensive [place]. P saul Fast (Order Date - 08/29/2024) [...] 8.4-10.2 - mg/dL ???Lab:Liver Panel (Order Da - 08/29/2024) (Collection Date - 08/29/2024) ? Value Reference Range ?Bilirubin Direct 0.2 0.0 -0.5 - mg/dL ???Lab:Lipid Panel (Order Da - 08/29/2024) (Collection Date - 08/29/2024) ? [...] normal, no murmurs.?LUNGS:?clear to auscultation bilaterally.?BREASTS:?done by oakes machine operator.?ABDOMEN:?soft, nontender, nondistended, bowel sounds present, normal, no organomegaly , no masses palpable.?RECTAL EXAM:?done by oakes machine operator.?FEMALE GENITOURINARY:?done by oakes machine operator.?EXTREMITIES:?no clubbing, cyanosis, or edema.?NEUROLOGIC:?nonfocal, motor strength normal [...] Ahn MD Date:?0 09/02/2024 Generated for Rosamaria smallwood/Cortez/Mushtaqsmitting on:?10/25/2024 02:46 PM EST History and Physical Notes * [...] cyanosi s, or edema BREASTS: done by oakes machine operator RECTAL EXAM: done by oakes machine operator FEMALE GENITOURINARY: done by oakes machine operator ORAL CAVITY: mucosa moist
== END 2024-10-25 12:07 | disposition home or self-care (01) ==
LOC: HO.HMGCLDS 12:06
PROVIDERS: PCP Internal Medicine; Visit Provider Internal Medicine Endocrinology, Diabetes & Metabolism
DX: M81.0 Age-related osteoporosis without current pathological fracture (principal)
CPT/HCPCS: 36415; 80048; 82040

== ENCOUNTER 2024-11-03 13:41 | Outpatient (AMB) | payer MEDICARE, SELFPAY ==
--- NOTE | 2024-11-03 14:02 | AM.OFFVISNUR ---
Intake Visit Reasons: prolia Allergies No Known Allergies Allergy (Mild, Verified 05/12/24 13:09) NKA Office Meds Prolia 60 mg/mL subcutaneous syringe Performing Provider: Criss Cardoza MD Performing Location: [facility] Endocr[facility]ology Administered by: Mary Gilbert RN on 11/03/24 14:02 Dose Route Admin Location Dispensed Lot Number Expiration Date NDC [employer] 60 mg subcut left upper arm 1 mL [id number] 03/30/27 88651-350-15 AMGEN Comments: Consent form signed by patient. Pt tolerated injection well. Pt denies any problems with previous prolia injections. Assessment & Plan Assessment & Plan Orders: Orders AMB Denosumab Injection Practice Supplied Today M81.0 - Age-related osteoporosis without current pathological fracture Medications: New Prolia (denosumab) 60 mg subcut ONCE 1 mL 0RF NS M81.0 - Age-related osteoporosis without current pathological fracture Coding
--- OUTSIDE RECORDS SUMMARY | 2024-11-03 16:39 | XMS_ITS ---
Author Organization Stevenson Ahn MD Address [address] [place], [place] [phone] Care Team Providers Care Pet Stylist Name Role Phone Stevenson Ahn Primary Care [...] Ahn MD [address] [place], [place] [phone] 09/02/2024 Stevenson Ahn Microscopic hematuri a R31.29 [...] Details Provider Name:Stevenson mays, 03/10/2025 08:30:00 AM, [address] [place] [address], [address], [phone], Provider Name:Stevenson mays, 08/29/2025 08:15:00 AM, [address] [place] [address], [address], [phone], Provider Name:Stevenson mays, 09/07/2025 01:30:00 PM, [address] [place] [address], [address] [place] [address], [phone], Progress Notes * Merlyn FERNANDEZ ADOB:[birth year] (89 yo F)Acc No.[id number]:09/02/2024 Patient:?Merlyn Fernandez Provider:?Stevenson Ahn MD :1935???Age:89 Y???Sex:Female D ate:09/02/2024 Address:[address] [place], [place] [id number] Subjective: * Chief Complaints: * ???Review labs [...] Auto 0.000 0.0-0. 012 - X10*3/uL ???Lab:Comprehensive [place]. P saul Fast (Order Date - 08/29/2024) [...] normal, no murmurs.?LUNGS:?clear to auscultation bilaterally.?BREASTS:?done by name plate stamping machine operator.?ABDOMEN:?soft, nontender, nondistended, bowel sounds present, normal, no organomegaly , no masses palpable.?RECTAL EXAM:?done by name plate stamping machine operator.?FEMALE GENITOURINARY:?done by name plate stamping machine operator.?EXTREMITIES:?no clubbing, cyanosis, or edema.?NEUROLOGIC:?nonfocal, motor [...] MD Date:?0 09/02/2024 Generated for Rosamaria smallwood/Cortez/Mushtaqsmitting on:?11/03/2024 04:39 PM EST History and Physical Notes * [...] cyanosi s, or edema BREASTS: done by name plate stamping machine operator RECTAL EXAM: done by name plate stamping machine operator FEMALE GENITOURINARY: done by name plate stamping machine operator ORAL CAVITY: mucosa moist
--- OUTSIDE RECORDS SUMMARY | 2024-11-03 16:39 | XMS_ITS ---
Author Organization Stevenson Ahn MD Address [address] [place], [place] [phone] Care Team Providers Care Global Product Manager Name Role Phone Stevenson Ahn Primary Care Provider [phone] Results Component Value Reference Range Notes Urinalysis and Microscopic Reviewed date:09/29/2024 04:54:58 PM Interpretation: Performing Lab:[facility], [address] [place] [phone] Notes/Report: Color Urine Yellow Appearance Urine Clear PH 7.0 5.0-9.0 Glucose Urine UA Negative Negative mg/dL Urine Blood Negative Negative Specific [place] - Urine 1.020 1.005-1.025 Urine Protein Negative [...] Ahn MD [address] [place], [place] [phone] 09/27/2024 Stevenson Ahn Microscopic hematuria R31.29 Assessments Encounter Date Diagnosis (ICD Code) Assessment Notes Treatment Notes Treatment Clinical Notes Section Notes 09/27/2024 Microscopic hematuria (ICD-10 - R31.29) Plan Of Treatment Next Appt Details Provider Name:Stevenson Canseco chanellr, 03/10/2025 08:30:00 AM, [address], [address], [place], [phone], Provider Name:Stevenson mays, 08/29/2025 08:15:00 AM, [address], [address], [place], [phone], Provider Name:Stevenson Canseco ier, 09/07/2025 01:30:00 PM, [address], [address], [place], [phone], Progress Notes * Merlyn FERNANDEZ ADOB:[birth year] (89 yo F)Acc No.[id number]:09/27/2024 Progress Note Patient:?Merlyn FERNANDEZ Provider:?Stevenson Ahn MD :1935???Age:89 Y???Sex:Female D ate:09/27/2024 Address:[address] [place], [place] [id number] Subjective: * Chief Complaints: * ???1. URINALYSIS [...] MD Date:?0 09/27/2024 Generated for Rosamaria smallwood/Cortez/eTransmitting on:?11/03/2024 04:39 PM EST
--- OUTSIDE RECORDS SUMMARY | 2024-11-03 16:39 | XMS_ITS ---
Author Organization Stevenson Ahn MD Address [address] [facility] [address] [place], [place] [phone] Care Team Providers Care Printed Circuit Board Pcb Draftsman Name Role Phone Stevenson Ahn Primary Care Provider Medications Medication SIG (Take, Route, Fr equency, Duration) Notes Start Date End Date Status Bactrim DS 800-160 MG 1 tablet Orally tw ice a day for 7 days 09/02/2024 Active Encounters Encounter Location Date Provider Diagnosis Stevenson Ahn MD [address] [facility] [address] [place] [phone] 09/02/2024 Stevenson Ahn Plan Of Treatment Medication Medication Name Sig Start Date Stop Date Notes Bactrim DS 800-160 MG 1 tablet Orally tw ice a day for 7 days 09/02/2024 Next Appt Details Provider Name:Stevenson mays, 03/10/2025 08:30:00 AM, [address] [place] [address], [address] [place] [address], [phone], Provider Name:Stevenson mays, 08/29/2025 08:15:00 AM, [address] [place] [address], [place] [address], [place], [place], [phone], Provider Name:Stevenson mays, 09/07/2025 01:30:00 PM, [address] [place] [address], [address], [phone], Progress Notes * Merlyn FERNANDEZ ADOB:[birth year] (89 yo F)Acc No.[id number]:09/02/2024 Patient:?Merlyn Fernandez :1935???Age:89 Y???Sex:Female Address:[address] [place] [phone] * Refills? Start Bactrim DS Tablet, 800-160 MG, Orally, 14 Tablet, 1 tablet, twice a day, 7 days * true * Date:? Generated for Rosamaria smallwood/Cortez/Mushtaqsmitting on:?11/03/2024 04:39 PM EST
== END 2024-11-03 14:02 | disposition home or self-care (01) ==
PROVIDERS: PCP Internal Medicine
DX: M81.0 Age-related osteoporosis without current pathological fracture (principal)

== ENCOUNTER → 2024-11-03 13:41 | Outpatient (BNVA) | payer MEDICARE, SELFPAY | PROVIDERS: PCP Internal Medicine | DX: M81.0 Age-related osteoporosis without current pathological fracture (principal) | CPT/HCPCS: 96372; J0897 ==

== ENCOUNTER 2024-11-10 12:46 | Outpatient (AMB) | payer MEDICARE, SELFPAY ==
--- NOTE | 2024-11-10 12:57 | MHC.OFFVIS ---
Vital Signs 11/10/24 13:01 Height 5 ft 1.77 in Weight 111 lb 8.862 oz BMI 20.6 BP 112/54 L Blood Pressure Location Lt brachial Position Sitting Pulse 64 Pulse Source Pulse Oximeter Pulse Oximetry (%) 94 Oxygen Delivery Method Room Air Intake Visit Reasons: f/u osteoporosis Intake Note: Patient present today for Osteoporosis follow up. Water Chemist Required: No Accompanied by: Spouse Allergies No Known Allergies Allergy (Mild, Verified 11/10/24 13:01) NKA Medication List - Last Reconciled 11/10/24 by Luis Fernando Rene MD atorvastatin 20 mg PO DAILY cefuroxime axetil 500 mg PO Q12H denosumab (Prolia) 60 mg subcut Q4LPDIZN multivitamin (Daily Multi-Vitamin tablet) 1 tab PO DAILY HPI Comments Details: 89 YO Female who is seen in F/U for Osteoporosis. First diagnosed in 2001. Received treatment in the past with Fosamax from 2001 to 2010. She did fail treatment with Fosamax as she had acute worsening of her BMD while on treatment. She was diagnosed with bilateral breast cancer and had a R sided mastectomy. She was treated with Chemo/Radiation and was also treated with Anastrazole from 3745-6104. She had a repeat BMD in 2019, which revealed a loss of BMD of 16% in her L hip. After her initial visit with me she underwent full biochemical workup for secondary causes of Osteoporosis 08/09/19. Her Calcium was high normal at 10.4, albumin 4.4, Vitamin D 52, and PTH of 45, indicating likely mild primary hyperparathyroidism. She opted for medical management and no surgical parathyroidectomy. Decision was made to proceed with Prolia. She received 6 doses so far 10/12/2019, 04/11/2020, 10/17/2020, 04/18/2021, 10/23/2021, 04/23/2022. No history of pathologic fracture or ONJ. Has 4 servings of dietary calcium per day in the form of almond milk, cheese and ice cream. Does not take a Calcium Supplement. Does not take Vitamin D supplement. Denies ever using PPI, anticoagulant, antiepileptic or glucocorticoid medication. Does weight bearing exercise most days of the week in the form of walking. Walks between 49647-66[address] steps per day. She also does [employer] and rides a bike. Fracture history: Denies any fractures. Height loss: Denies CONSERVATION ASSISTANT history: Menarche was age 13. Menses was always regular. , she did not breastfeed. Menopause was mid 50's. Did use HRT from from age 53 for 8 years until the year 1999. History of Kidney stones: Denies. Denies Family history of Osteoporosis or hip fracture. UTD on dental cleanings and sees dentist every 6 months. No planned upcoming dental work or extractions. DXA dated 05/07/2021: FINDINGS: AP SPINE L1-L3 (excluding L4): The data of L1-L4 has been changed to exclude the L4 vertebral body, because degenerative changes at this level may cause overestimation of lumbar spine density. Current: BMD 0.801 g/cm2, Z-score -0.6, T-score -3.1, osteoporosis, 6.9% increase from previous, 0.2% decrease from baseline (<5% change is not significant). Prior: BMD 0.749 g/cm2. Baseline: BMD 0.803 g/cm2. LEFT FEMUR, NECK: Current: BMD 0.854 g/cm2, Z-score 1.4, T-score -1.3, osteopenia. Prior: BMD 0.752 g/cm2. Baseline: BMD 0.846 g/cm2. LEFT FEMUR, TOTAL: Current: BMD 0.820 g/cm2, Z-score 1.2, T-score -1.5, osteopenia, 18.2% increase from previous, 4.3% decrease from baseline (<5% change is not significant). Prior: BMD 0.694 g/cm2. Baseline: BMD 0.857 g/cm2. Labs: Laboratory Tests 10/13/22 10/13/22 10/14/22 13:43 13:43 04:50 Creatinine 0.83 Estimated GFR > 60 N-Telopeptide X-linked 15 25-OH Vitamin D Total 39.9 PTH Intact 62 Calcium (PTH Intact) 10.0 The patient is an 89-year-old female presenting with a follow-up on osteoporosis and current bone density monitoring after treatment with Prolia. The Prolia therapy commenced in 2019, and evaluation of the spine indicated minimal changes and a general stability in bone density. The patient reports no physical symptoms or changes since therapy initiation and acknowledges a lack of subjective improvement, which aligns with expectations for Prolia's effects. The patient maintains an active lifestyle, engaging in daily exercise, which includes a variety of activities. She utilizes light weights and participates in weightbearing exercises. 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 [facility] Medical History Hyperparathyroidism Osteoporosis Vitamin D deficiency Surgical History History of right cataract surgery History of left cataract surgery Hx of eye surgery Hx of cholecystectomy Hx of total mastectomy of right breast Family History Father CVD (cardiovascular disease) Stroke Mother Heart disease Social History Alcohol intake: never Patient Tobacco Use Status: Never used Tobacco Assessment & Plan Assessment & Plan (1) Osteoporosis: Code(s): M81.0 - Age-related osteoporosis without current pathological fracture Category: Medical Qualifiers: Osteoporosis type: unspecified Presence of current pathological fracture: unspecified Qualified Code(s): M81.0 - Age-related osteoporosis without current pathological fracture Plan: This 89-year-old white female with history of osteoporosis with negative secondary workup currently being treated with Prolia 60 mg Q 6 months. Last DEXA bone density has improved with Prolia. . Osteoporosis: Continued Prolia therapy until the next bone density evaluation in 5 mos . Stable results suggest ongoing efficacy. Future management may include transitioning from Prolia if stable or improved bone density is confirmed. Current plan includes maintaining exercise regimen, ensuring adequate dietary calcium and vitamin D intake, and keeping the next Prolia injection schedule in six months. The patient had an opportunity to ask questions regarding treatment plan. The patient expressed understanding and agreement with the above treatment plan. Patient was informed and verbally consented to the use of an ambient scribe for clinic note documentation during this visit. Orders: Orders XR DEXA axial skeleton 5 Months M81.0 - Age-related osteoporosis without current pathological fracture Basic Metabolic Panel Today M81.0 - Age-related osteoporosis without current pathological fracture Albumin Level Today M81.0 - Age-related osteoporosis without current pathological fracture Calcium Today M81.0 - Age-related osteoporosis without current pathological fracture Coding Level of Care Code Est Pt Level 3 (73554) Diagnoses Osteoporosis, unspecified osteoporosis type, unspecified pathological fracture presence M81.0 Osteoporosis type: unspecified Presence of current pathological fracture: unspecified
[2024-11-10 13:01] VITALS: BP 112/54; PULSE 64; O2SAT 94; BMI 20.6
--- OUTSIDE RECORDS SUMMARY | 2024-11-10 16:05 | XMS_ITS ---
Author Organization Stevenson Ahn MD Address [address] [place], [place] [phone] Care Team Providers Care Reporting Consultant Name Role Phone Stevenson Ahn Primary Care [...] Ahn MD [address] [place], [place] [phone] 09/02/2024 Stevenson Ahn Microscopic hematuri a R31.29 [...] Details Provider Name:Stevenson mays, 03/10/2025 08:30:00 AM, [address] [place] [address], [address], [phone], Provider Name:Stevenson mays, 08/29/2025 08:15:00 AM, [address] [place] [address], [address], [phone], Provider Name:Stevenson mays, 09/07/2025 01:30:00 PM, [address] [place] [address], [address] [place] [address], [phone], Progress Notes * Merlyn FERNANDEZ ADOB:[birth year] (89 yo F)Acc No.[id number]:09/02/2024 Patient:?Merlyn Fernandez Provider:?Stevenson Ahn MD :1935???Age:89 Y???Sex:Female D ate:09/02/2024 Address:[address] [place], [place] [id number] Subjective: * Chief Complaints: * ???Review labs [...] Auto 0.000 0.0-0. 012 - X10*3/uL ???Lab:Comprehensive [place]. P saul Fast (Order Date - 08/29/2024) [...] normal, no murmurs.?LUNGS:?clear to auscultation bilaterally.?BREASTS:?done by ob/gyn doctor.?ABDOMEN:?soft, nontender, nondistended, bowel sounds present, normal, no organomegaly , no masses palpable.?RECTAL EXAM:?done by ob/gyn doctor.?FEMALE GENITOURINARY:?done by ob/gyn doctor.?EXTREMITIES:?no clubbing, cyanosis, or edema.?NEUROLOGIC:?nonfocal, motor strength normal [...] MD Date:?0 09/02/2024 Generated for Rosamaria smallwood/Cortez/Mushtaqsmitting on:?11/10/2024 04:05 PM EDT History and Physical Notes * [...] cyanosi s, or edema BREASTS: done by ob/gyn doctor RECTAL EXAM: done by ob/gyn doctor FEMALE GENITOURINARY: done by ob/gyn doctor ORAL CAVITY: mucosa moist
--- OUTSIDE RECORDS SUMMARY | 2024-11-10 16:05 | XMS_ITS ---
Author Organization Stevenson Ahn MD Address [address] [place], [place] [phone] Care Team Providers Care Housing Quality Standard Inspector Name Role Phone Stevenson Ahn Primary Care Provider [phone] Results Component Value Reference Range Notes Urinalysis and Microscopic Reviewed date:09/29/2024 04:54:58 PM Interpretation: Performing Lab:[facility], [address] [place] [phone] Notes/Report: Color Urine Yellow Appearance Urine Clear PH 7.0 5.0-9.0 Glucose Urine UA Negative Negative mg/dL Urine Blood Negative Negative Specific [place] - Urine 1.020 1.005-1.025 Urine Protein Negative [...] Ahn MD [address] [place], [place] [phone] 09/27/2024 Stevenson Ahn Microscopic hematuria R31.29 Assessments Encounter Date Diagnosis (ICD Code) Assessment Notes Treatment Notes Treatment Clinical Notes Section Notes 09/27/2024 Microscopic hematuria (ICD-10 - R31.29) Plan Of Treatment Next Appt Details Provider Name:Stevenson Canseco chanellr, 03/10/2025 08:30:00 AM, [address], [address], [place], [phone], Provider Name:Stevenson mays, 08/29/2025 08:15:00 AM, [address], [address], [place], [phone], Provider Name:Stevenson Canseco ier, 09/07/2025 01:30:00 PM, [address], [address], [place], [phone], Progress Notes * Merlyn FERNANDEZ ADOB:[birth year] (89 yo F)Acc No.[id number]:09/27/2024 Progress Note Patient:?Merlyn FERNANDEZ Provider:?Stevenson Ahn MD :1935???Age:89 Y???Sex:Female D ate:09/27/2024 Address:[address] [place], [place] [phone] Subjective: * Chief Complaints: * ???1. URINALYSIS [...] MD Date:?0 09/27/2024 Generated for Rosamaria smallwood/Cortez/eTransmitting on:?11/10/2024 04:05 PM EDT
--- OUTSIDE RECORDS SUMMARY | 2024-11-10 16:06 | XMS_ITS ---
Author Organization Stevenson Ahn MD Address [address] [facility] [address] [place], [place] [phone] Care Team Providers Care Blower Installer Name Role Phone Stevenson Ahn Primary Care Provider [phone] Medications Medication SIG (Take, Route, Fr equency, Duration) Notes Start Date End Date Status Bactrim DS 800-160 MG 1 tablet Orally tw ice a day for 7 days 09/02/2024 Active Encounters Encounter Location Date Provider Diagnosis Stevenson Ahn MD [address] [facility] [address] [place] [phone] 09/02/2024 Stevenson Ahn Plan Of Treatment Medication Medication Name Sig Start Date Stop Date Notes Bactrim DS 800-160 MG 1 tablet Orally tw ice a day for 7 days 09/02/2024 Next Appt Details Provider Name:Stevenson mays, 03/10/2025 08:30:00 AM, [address] [place] [address], [address] [place] [address], [phone], Provider Name:Stevenson mays, 08/29/2025 08:15:00 AM, [address] [place] [address], [place] [address], [place], [place], [phone], Provider Name:Stevenson mays, 09/07/2025 01:30:00 PM, [address] [place] [address], [address], [phone], Progress Notes * Merlyn FERNANDEZ ADOB:[birth year] (89 yo F)Acc No.[id number]:09/02/2024 Patient:?Merlyn Fernandez :1935???Age:89 Y???Sex:Female Address:[address] [place] [phone] * Refills? Start Bactrim DS Tablet, 800-160 MG, Orally, 14 Tablet, 1 tablet, twice a day, 7 days * true * Date:? Generated for Rosamaria smallwood/Cortez/Mushtaqsmitting on:?11/10/2024 04:06 PM EDT
== END 2024-11-10 13:27 | disposition home or self-care (01) ==
LOC: HO.ENCR 12:46
PROVIDERS: PCP Internal Medicine; Visit Provider Internal Medicine Endocrinology, Diabetes & Metabolism
DX: M81.0 Age-related osteoporosis without current pathological fracture (principal)
CPT/HCPCS: 99213

== ENCOUNTER → 2024-11-10 12:46 | Outpatient (BNVA) | payer MEDICARE, SELFPAY | PROVIDERS: PCP Internal Medicine; Visit Provider Internal Medicine Endocrinology, Diabetes & Metabolism | DX: M81.0 Age-related osteoporosis without current pathological fracture (principal) | CPT/HCPCS: 99212 ==

== ENCOUNTER 2025-03-10 09:32 | Outpatient (REF) | payer MEDICARE, SELFPAY ==
--- OUTSIDE RECORDS SUMMARY | 2024-09-27 05:30 | XMS_ITS ---
Author Organization Stevenson Ahn MD Address [address] [place], [place] [phone] Care Team Providers Care Shovel Logger Name Role Phone Stevenson Ahn Primary Care Provider Results Component Value Reference Range Notes Urinalysis and Microscopic Reviewed date:09/29/2024 04:54:58 PM Interpretation: Performing Lab:[facility], [address] [place] [phone] Notes/Report: Color Urine Yellow Appearance Urine Clear PH 7.0 5.0-9.0 Glucose Urine UA Negative Negative mg/dL Urine Blood Negative Negative Specific [place] - Urine 1.020 1.005-1.025 Urine Protein Negative Neg-Trace mg/dL Urine Ketones Negative Negative mg/dL Nitrite Urine Negative Negative Leukocyte Esterase Urine Small (1+) Negative RBC Urine 0-2 0-2 /HPF WBC Urine 0-5 0-5 /HPF Squamous Epithelial Cell Urine 3-5 0-2 /HPF Bacteria Urine None Seen None Seen Hyaline Casts Urine 0-2 0-2 /LPF REASON FOR VISIT URINALYSIS AND MICROSCOPIC Encounters Encounter Location Date Provider Diagnosis Stevenson Ahn MD [address] [place], [place] [phone] 09/27/2024 Stevenson Ahn Microscopic hematuria R31.29 Assessments Encounter Date Diagnosis (ICD Code) Assessment Notes Treatment Notes Treatment Clinical Notes Section Notes 09/27/2024 Microscopic hematuria (ICD-10 - R31.29) Plan Of Treatment Next Appt Details Provider Name:Stevenson Canseco ier, 03/20/2025 02:00:00 PM, [address], [address], [place], [phone], Provider Name:Stevenson Canseco ier, 08/29/2025 08:15:00 AM, [address], [address], [place], [place], [phone], Provider Name:Stevenson Canseco ier, 09/07/2025 01:30:00 PM, [address], [address], [place], [phone], Progress Notes * Radha FERNANDEZsa ADOB:[birth year] (89 yo F)Acc No.[id number]:09/27/2024 Progress Note Patient: Merlyn CASTANON Provider: Gail Ahn MD :1935 A ge:89 Y S ex:Female Date:09/27/2024 Address:[address] [place] [address] SEGUNDO [id number] Subjective: * Chief Complaints: * 1 . URINALYSIS AND MICROSCOPIC. * Medical History: Objective: * Vitals: Assessment: * Assessment: 1. M icroscopic hematuria - R31.29 Plan: * Treatment: * * The named appointment provid er may or may not be the originator of this progress note, and it is not deemed complete until electronically signed by the appointment provider. Sign off status: Pending * Provider: Gail Ahn MD Date: 09/27/2024 Generated for Rosamaria smallwood/Cortez/Prabhaitting on: 0 03/10/2025 09:48 AM EDT
--- OUTSIDE RECORDS SUMMARY | 2025-03-10 09:48 | XMS_ITS | Patient Health Record ---
Author Organization 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 Problem Hallux valgus (117663724) Hallux Valgus (735.0) Active confirmed 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, 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 Problem Pain in limb (81447527) Pain in Limb (729.5) Active confirmed Plan Of Treatment Pending Test Test Name Order Date X ray : Foot, left 3V 07/12/2014 14845, J0702- Neuroma/Injection 11/14/19 15 Insurance Providers Payer Name Payer Address Payer Phone Subscriber Number Group Number Insured Name Patient Relationship to Insured Coverage Start Date Coverage End Date Medicare National [facility] [employer] [address] [place] [address] [phone] [id number] Dariorodolfo Merlyn Self - patient is the insured [employer] [address] [place] [address] [phone] [id number] Berenice Merlyn Self - patient is the insured Medical (General) History Medical History History ICD Code cancer cataracts chickenpox osteoporosis measles Surgical History Surgery Date(Month/Year) lumpectomy 09/09/2002 lumpectomy 09/18/2002 mastectomy 11/17/2008 right eye cataract surgery 10/23/2014 left eye cataract surgery 11/06/2014
--- OUTSIDE RECORDS SUMMARY | 2025-03-10 09:48 | XMS_ITS | Patient Health Record ---
Author Organization [facility] Address [address] [place] [address] Care Team Providers Care Land Manager Name Role Phone Stevenson Ahn MD Primary Care Provider Luis Fernando Gillis Unavailable [phone] Reason For Referral No Information Medications Medication SIG (Take, Route, Fr equency, Duration) Notes Start Date End Date Status Multi Vitamin/Minerals Active Aspirin 81mg Active Calcium + D 900mg Ac tive MoviPrep 100 GM as directed Orally 07/18/2011 Active Fish Oil 2000mg Acti ve Lipitor 20mg Active Problems Problem Type SNOMED Code ICD Code Onset Dates Problem Status W/U Status Risk Notes Problem Benign neoplasm of colon (20813528) 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) Active confirmed Problem History of polyp of colon (situation) (885068176) Personal history of colonic polyps (V12.72) Active confirmed Problem Screening for malignant neoplasm of colon (227071239) Special screening for malignant neoplasms, colon (V76.51) Active confirmed Plan Of Treatment Future Test Test Name Order Date COLONOSCOPY 07/18/2011 Insurance Providers Payer Name Payer Address Payer Phone Subscriber Number Group Number Insured Name Patient Relationship to Insured Coverage Start Date Coverage End Date MEDICARE OF [place] [address] [place] [address] [id number] JIM JUSTINO Self - patient is the insured [employer] ATT[employer] CLAIMS [address] [place] [address] [phone] [id number] ROBBYMAYNOR JUSTINO Self - patient is the insured Medical (General) History Medical History History ICD Code hyperlipidemia breast cancer-she had a left sided lumpectomy in 2002 with associated radiation treatments, right-sided breast cancer in August 2005 for which she underwent a lumpectomy and radiation treatments, and recurrence of breast cancer on the right side with subsequent mastectomy and chemotherapy in 2008 Denies [place],DM,CVA,Lung disease,renal dise ase Surgical History Surgery Date(Month/Year) breast cancer surgeries as above cholecystectomy eye surgery
[2025-03-10 11:25] LABS: Alanine Aminotransferase 15 U/L (0-31); Albumin Level 4.1 g/dL (3.5-5.0); Alkaline Phosphatase 49 U/L (39-117); Aspartate Amino Transferase 29 U/L (5-31); Cholesterol 160 mg/dL (<200); HDL Cholesterol 53 mg/dL (>40); Total Protein 7.5 g/dL (6.5-8.0); Triglycerides 69 mg/dL (<150)
== END 2025-03-10 09:33 | disposition home or self-care (01) ==
LOC: HO.HMGCLDS 09:32
PROVIDERS: PCP Internal Medicine; Visit Provider Internal Medicine
DX: E78.00 Pure hypercholesterolemia, unspecified (principal)
CPT/HCPCS: 36415; 80061; 80076

== ENCOUNTER 2025-04-28 12:28 | Outpatient (REF) | payer MEDICARE, SELFPAY ==
--- OUTSIDE RECORDS SUMMARY | 2024-09-02 09:30 | XMS_ITS ---
Author Organization Stevenson Ahn MD Address [address] [place], [place] [id number] Care Team Providers Care Fast Food Cook Name Role Phone Stevenson Ahn Primary Care Provider [phone] Allergies No Known Allergies REASON FOR VISIT [...] Ahn MD [address] [place], [place] [phone] 09/02/2024 Stevenson Ahn Microscopic hematuri a R31.29 [...] Provider Name:Stevenson Canseco ier, 08/29/2025 08:15:00 AM, [address] [place] [address], [address] [place] [address], [phone], Provider Name:Stevenson Canseco ier, 09/07/2025 01:30:00 PM, [address] [place] [address], [address] [place] [address], [phone], Progress Notes * Merlyn FERNANDEZ ADOB:[birth year] (89 yo F)Acc No.[id number]:09/02/2024 Patient: Gail Merlyn pierre A Provider: Gail Ahn MD :1935 A ge:89 Y S ex:Female Date:09/02/2024 Address:[address] [place] [address] [place], [id number] Subjective: * Chief Complaints: * R eview [...] in the past year? N o. S JOSTIN Questions: SDOH Questions I n the past [...] Auto 0.000 0.0-0.012 - X10*3/uL L ab:Comprehensive [place]. Panel Fast (Order Date - 08/29/2024) (Collection [...] to auscultation bilaterally. BREASTS: d one by content specialist. ABDOMEN: s oft, nontender, nondistended, bowel sounds present, normal, no organomegaly , no masses palpable. RECTAL EXAM: d one by content specialist. FEMALE GENITOURINARY: d one by content specialist. EXTREMITIES: n o clubbing, cyanosis, or [...] 0 09/02/2024 Generated for Rosamaria smallwood/Cortez/Manny on: 0 04/28/2025 12:58 PM EDT History and Physical Notes * [...] all Thoughts that you would be b wan off or of hurting yourself in some [...] cyanosi s, or edema BREASTS: done by content specialist RECTAL EXAM: done by content specialist FEMALE GENITOURINARY: done by content specialist ORAL CAVITY: mucosa moist
--- OUTSIDE RECORDS SUMMARY | 2024-09-27 05:30 | XMS_ITS ---
Author Organization Stevenson Ahn MD Address [address] [place], [place] [phone] Care Team Providers Care Cyber Software Engineer Name Role Phone Stevenson Ahn Primary Care Provider Results Component Value Reference Range Notes Urinalysis and Microscopic Reviewed date:09/29/2024 04:54:58 PM Interpretation: Performing Lab:[facility], [address] [place] [phone] Notes/Report: Color Urine Yellow Appearance Urine Clear PH 7.0 5.0-9.0 Glucose Urine UA Negative Negative mg/dL Urine Blood Negative Negative Specific [place] - Urine 1.020 1.005-1.025 Urine Protein Negative [...] Ahn MD [address] [place], [place] [phone] 09/27/2024 Stevenson Ahn Microscopic hematuria R31.29 Assessments Encounter Date Diagnosis (ICD Code) Assessment Notes Treatment Notes Treatment Clinical Notes Section Notes 09/27/2024 Microscopic hematuria (ICD-10 - R31.29) Plan Of Treatment Next Appt Details Provider Name:Stevenson Canseco ier, 08/29/2025 08:15:00 AM, [address], [address], [place], [place], [phone], Provider Name:Stevenson Canseco ier, 09/07/2025 01:30:00 PM, [address], [address], [place], [place], [phone], Progress Notes * Merlyn FERNANDEZ ADOB:[birth year] (89 yo F)Acc No.[id number]:09/27/2024 Progress Note Patient: Merlyn CASTANON Provider: Gail Ahn MD :1935 A ge:89 Y S ex:Female Date:09/27/2024 Address:[address] [place], [place] [phone] Subjective: * Chief Complaints: * 1 . [...] MD Date: 0 09/27/2024 Generated for Rosamaria smallwood/Cortez/Prabhaitting on: 0 04/28/2025 12:58 PM EDT
--- OUTSIDE RECORDS SUMMARY | 2025-03-10 04:30 | XMS_ITS ---
Author Organization Stevenson Ahn MD Address [address] [place], [place] [phone] Care Team Providers Care Supervisor Plating And Point Assembly Name Role Phone Stevenson Ahn Primary Care Provider [phone] Results Component Value Reference Range Notes Liver Panel Reviewed date:03/10/2025 12:44:38 PM Interpretation: Performing Lab:[facility], [address] [place] [phone] Notes/Report: Bilirubin Total 0.6 0.0-1.0 mg/dL Bilirubin Direct 0.2 0.0-0.5 mg/dL Aspartate Amino Transferase 29 5-31 U/L Alanine Aminotransferase 15 0-31 U/L Total Protein 7.5 6.5-8.0 g/dL Albumin Level 4.1 3.5-5.0 g/dL Alkaline Phosphatase 49 39-117 U/L REASON FOR VISIT FASTING LIPDS Encounters Encounter Location Date Provider Diagnosis Stevenson Ahn MD [address] [place] [phone] 03/10/2025 Stevenson Ahn Pure hypercholestero lemia E78.00 Assessments Encounter Date Diagnosis (ICD Code) Assessment Notes Treatment Notes Treatment Clinical Notes Section Notes 03/10/2025 Pure hypercholesterolemia (ICD-10 - E78.00) Plan Of Treatment Pending Test Test Name Order Date Lipid Panel with Reflex 03/10/2025 Next Appt Details Provider Name:Stevenson Canseco ier, 08/29/2025 08:15:00 AM, [address], [address], [place], [place], [phone], Provider Name:Stevenson Canseco ier, 09/07/2025 01:30:00 PM, [address], [place], [place], [phone], Progress Notes * Merlyn FERNANDEZ ADOB:[birth year] (89 yo F)Acc No.[id number]:03/10/2025 Progress Note Patient: Merlyn CASTANON Provider: Gail Ahn MD :1935 A ge:89 Y S ex:Female Date:03/10/2025 Address:[address] [place] [address] [place] [id number] Subjective: * Chief Complaints: * 1 . FASTING LIPDS. * Medical History: Objective: * Vitals: Assessment: * Assessment: 1. P ure hypercholesterolemia - E78.00 (Primary) Plan: * Treatment: * * The named appointment provid er may or may not be the originator of this progress note, and it is not deemed complete until electronically signed by the appointment provider. Sign off status: Pending * Provider: Gail Ahn MD Date: 03/10/2025 Generated for Rosamaria smallwood/Cortez/Prabhaitting on: 0 04/28/2025 12:58 PM EDT
--- OUTSIDE RECORDS SUMMARY | 2025-03-20 10:00 | XMS_ITS ---
Author Organization Stevenson Ahn MD Address [address] [place], [place] [id number] Care Team Providers Care Senior Consumer Insights Consultant Name Role Phone Stevenson Ahn Primary [...] Ahn MD [address] [place], [place] [phone] 03/20/2025 Stevenson Ahn Pure hypercholestero lemia E78.00 [...] Name:Stevenson Canseco ier, 08/29/2025 08:15:00 AM, [address], [address], [place], [place], [phone], Provider Name:Stevenson Canseco ier, 09/07/2025 01:30:00 PM, [address], [address], [place], [place], [phone], Progress Notes * Merlyn FERNANDEZ ADOB:[birth year] (89 yo F)Acc No.[id number]:03/20/2025 Progress Notes Patient: Merlyn CASTANON Provider: Gail Ahn MD :1935 A ge:89 Y S ex:Female Date:03/20/2025 Address:[address] [place] [address] [id number] Subjective: * Chief Complaints: * 6 MO [...] true * Provider: Gail Ahn MD Date: 03/20/2025 Generated for Rosamaria smallwood/Cortez/eTrossysmitting on: 04/28/2025 12:58 PM EDT History and Physical Notes * HPI (History of Present Illness) Category Sub-Category Detail Notes Category Not es Symptom(s) patient is a 89 yo female here for 6 month follow up visit/ left knee hurts. especially stairs. has cruching. is getting better.
--- OUTSIDE RECORDS SUMMARY | 2025-03-23 08:45 | XMS_ITS ---
Author Organization Stevenson Ahn MD Address [address] [place], [place] [phone] Care Team Providers Care Textile Knitter Name Role Phone Stevenson Ahn Primary Care Provider [phone] Allergies No Known Allergies REASON FOR VISIT [...] Stevenson Ahn MD [address] [place] [phone] 03/23/2025 Stevenson Ahn Finger pain, right M79.644 [...] 08:15:00 AM, [address], [address], [place], [place], [phone], Provider Name:Stevenson Canseco ier, 09/07/2025 01:30:00 PM, [address], [address], [place], [place], [phone], Progress Notes * Merlyn FERNANDEZ ADOB:[birth year] (89 yo F)Acc No.[id number]:03/23/2025 Progress Notes Patient: Merlyn CASTANON Provider: Gail Ahn MD :1935 A ge:89 Y S ex:Female Date:03/23/2025 Address:[address] [place] [address] [id number] Subjective: * Chief Complaints: * 1 . [...] 03/23/2025 Generated for Rosamaria smallwood/Cortez/Prabhaitting on: 0 04/28/2025 12:58 PM EDT History [...]
--- OUTSIDE RECORDS SUMMARY | 2025-04-28 12:59 | XMS_ITS | Patient Health Record ---
Author Organization [facility] Address [address] [place] [address] Care Team Providers Care Air Bag Builder Name Role Phone Stevenson Ahn MD Primary Care Provider Luis Fernando Gillis Unavailable [phone] Reason For Referral No Information Medications Medication [...] Risk Notes Problem Benign neoplasm of colon (54954312) 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) Active confirmed Problem History of polyp of colon (situation) (654133084) Personal history of colonic polyps (V12.72) Active confirmed Problem Screening for malignant neoplasm of colon (908818719) Special screening for malignant neoplasms, colon (V76.51) Active confirmed Plan Of Treatment Future Test Test Name Order Date COLONOSCOPY 07/18/2011 Insurance Providers Payer Name Payer Address Payer Phone Subscriber Number Group Number Insured Name Patient Relationship to Insured Coverage Start Date Coverage End Date MEDICARE OF [place] [address] [place] [address] [phone] [id number] JIM JUSTINO Self - patient is the insured [employer] ATTN CLAIMS [address] [place] [phone] [id number] ROBBYMAYNOR JUSTINO Self - patient is the insured Medical (General) History Medical History History ICD Code hyperlipidemia breast cancer-she had a left sided lumpectomy in 2002 with associated radiation treatments, right-sided breast cancer in August 2005 for which she underwent a lumpectomy and radiation treatments, and recurrence of breast cancer on the right side with subsequent mastectomy and chemotherapy in 2008 Denies [place],DM,CVA,Lung disease,renal dise ase Surgical History Surgery Date(Month/Year) breast cancer surgeries as above cholecystectomy eye surgery
--- OUTSIDE RECORDS SUMMARY | 2025-04-28 12:59 | XMS_ITS | Patient Health Record ---
Author Organization [facility] carol GrossFlaxton Address [address] [place] [address] Care Team Providers Care Handkerchief Presser Name Role Phone Stevenson Ahn MD Primary Care Provider Eric De La Vega Unavailable [phone] Reason For Referral No Information Medications Medication SIG (Take, Route, Frequency, Duration) Notes Start Date End Date Status Lipitor 20 MG 1 tablet Orally Once a day; Duration: 30 day(s) Active Problems Problem Type SNOMED Code ICD Code Onset Dates Problem Status W/U Status Risk Notes Problem Neuralgia - Neuritis (729.2) Active confirmed Problem Hallux valgus (711963775) Hallux Valgus (735.0) Active confirmed Problem 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, 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 Problem Pain in limb (03273991) Pain in Limb (729.5) Active confirmed Plan Of Treatment Pending Test Test Name Order Date X ray : Foot, left 3V 07/12/2014 81198, J0702- Neuroma/Injection 11/14/19 15 Insurance Providers Payer Name Payer Address Payer Phone Subscriber Number Group Number Insured Name Patient Relationship to Insured Coverage Start Date Coverage End Date Medicare [facility] [employer] [address] [place] [address] [id number] Dariorodolfo Merlyn Self - patient is the insured [employer] [address] [place] [address] [id number] Berenice Merlyn Self - patient is the insured Medical (General) History Medical History History ICD Code cancer cataracts chickenpox osteoporosis measles Surgical History Surgery Date(Month/Year) lumpectomy 09/09/2002 lumpectomy 09/18/2002 mastectomy 11/17/2008 right eye cataract surgery 10/23/2014 left eye cataract surgery 11/06/2014
--- OUTSIDE RECORDS SUMMARY | 2025-04-28 12:59 | XMS_ITS | Patient Health Record ---
Author Organization Stevenson Ahn MD Address [address] [place], [place] [id number] Care Team Providers Care Power Transformer Repair Supervisor Name Role Phone Stevenson Ahn Primary Care Provider Allergies No Known Allergies Results Component Value Reference Range Notes Complete Blood Count Auto Di ff Reviewed date:04/29/2024 02:09:46 PM Interpretation: Performing Lab:[facility], [address] [place] [phone] Notes/Report: White Blood Count 9.9 4.8-10.8 X10*3/uL Red Blood Count 4.36 4.20-5.50 X10*6/uL Hemoglobin 12.5 12.0-16.0 g/dl Hematocrit 38.7 37.0-47.0 % Mean Corpuscular Volume 88.8 80.0-98.0 fL Mean Corpuscular Hemoglobin 28.7 27.0-33.0 pg Mean Corpuscular HGB Conc 32.3 31.0-35.0 g/dl Red Cell Distribution Width 13.8 11.0-16.0 % Platelet Count 208 160-400 X10*3/uL Mean Platelet Volume 11.0 9.4-12.3 fL Neutrophils Percent Auto 54.9 45-73 % Imm Gran Pct Auto 0.3 0.0-0.4 % Lymphocytes Percent Auto 31.8 20-40 % Monocytes Percent Auto 9.7 2-11 % Eosinophils Percent Auto 2.3 0-4 % Basophils Percent Auto 1.0 0-2 % NRBC Pct Auto 0.0 0.0-0.2 /100WBC Neutrophils Absolute Auto 5.4 2.0-8.3 x10*3/uL Imm Gran Abs Auto 0.03 0.00-0.03 X10*3/uL Lymphocytes Absolute Auto 3.1 1.2-4.9 X10*3/uL Monocytes Absolute Auto 1.0 0.1-1.2 X10*3/uL Eosinophils Absolute Auto 0.2 0.0-0.4 X10*3/uL Basophils Absolute Auto 0.1 0.0-0.2 X10*3/uL NRBC Abs Auto 0.000 0.0-0.012 X10*3/uL Vitamin B12 and Folate Reviewed date:04/29/2024 09:18:09 AM Interpretation: Performing Lab:[address] [phone] Notes/Report: Vitamin B12 945 200-900 pg/mL NORMAL 200-900 PG/ML INDETERMINATE 160-199 PG/ML DEFICIENT < 160 PG/ML Folate > 20.0 > or = 4.0 ng/mL Reference Values: > or = 4.0 ng/mL < 4.0 ng/mL suggests folate deficiency Methotrexate, aminopterin and folinic acid (leucovorin) are chemotherapeutic agents whose molecular structures are similar to folate; therefore, the Project Product Manager folate assay cannot be used for patients using these drugs. Complete Blood Count Auto Di ff Reviewed date:08/30/2024 04:45:30 PM Interpretation: Performing Lab:[address] [phone] Notes/Report: White Blood Count 8.9 4.8-10.8 X10*3/uL Red Blood Count 4.76 4.20-5.50 X10*6/uL Hemoglobin 13.7 12.0-16.0 g/dl Hematocrit 41.6 37.0-47.0 % Mean Corpuscular Volume 87.4 80.0-98.0 fL Mean Corpuscular Hemoglobin 28.8 27.0-33.0 pg Mean Corpuscular HGB Conc 32.9 31.0-35.0 g/dl Red Cell Distribution Width 13.6 11.0-16.0 % Platelet Count 242 160-400 X10*3/uL Mean Platelet Volume 10.4 9.4-12.3 fL Neutrophils Percent Auto 54.6 45-73 % Imm Gran Pct Auto 0.3 0.0-0.4 % Lymphocytes Percent Auto 31.2 20-40 % Monocytes Percent Auto 9.2 2-11 % Eosinophils Percent Auto 3.5 0-4 % Basophils Percent Auto 1.2 0-2 % NRBC Pct Auto 0.0 0.0-0.2 /100WBC Neutrophils Absolute Auto 4.9 2.0-8.3 x10*3/uL Imm Gran Abs Auto 0.03 0.00-0.03 X10*3/uL Lymphocytes Absolute Auto 2.8 1.2-4.9 X10*3/uL Monocytes Absolute Auto 0.8 0.1-1.2 X10*3/uL Eosinophils Absolute Auto 0.3 0.0-0.4 X10*3/uL Basophils Absolute Auto 0.1 0.0-0.2 X10*3/uL NRBC Abs Auto 0.000 0.0-0.012 X10*3/uL Comprehensive [place]. Panel Fa st Reviewed date:08/30/2024 04:43:02 PM Interpretation: Performing Lab:[facility], [address] [place] [phone] Notes/Report: Sodium 141 135-145 mmol/L Potassium 3.8 3.3-5.1 mmol/L Chloride 107 96-108 mmol/L Carbon Dioxide 26 22-29 mmol/L Anion Gap 12 12-20 Blood Urea Nitrogen 15 9-16 mg/dL Creatinine 0.89 0.5-1.4 mg/dL Estimated Glomerular Filt Rate 60 Chronic Kidney Disease: Estimated GFR < 60 mL/min/1.73m2 Severe Kidney Disease: Estimated GFR < 15 mL/min/1.73m2 Glucose Fasting 106 60-99 mg/dL A fasting glucose from 100-125 mg/dl is considered impaired (pre-diabetes). Calcium 9.9 8.4-10.2 mg/dL Bilirubin Total 0.6 0.0-1.0 mg/dL Aspartate Amino Transferase 29 5-31 U/L Alanine Aminotransferase 15 0-31 U/L Total Protein 7.7 6.5-8.0 g/dL Albumin Level 4.2 3.5-5.0 g/dL Alkaline Phosphatase 54 39-117 U/L Liver Panel Reviewed date:08/30/2024 04:31:04 PM Interpretation: Performing Lab:[facility], [address] [place] [phone] Notes/Report: Bilirubin Direct 0.2 0.0-0.5 mg/dL Lipid Panel Reviewed date:08/30/2024 04:30:56 PM Interpretation: Performing Lab:[facility], [address] [place] [phone] Notes/Report: Triglycerides 74 <150 mg/dL Desirable Triglyceride: less than 150 mg/dL Borderline High Triglyceride 150-199 mg/dL High Triglyceride: 200-499 mg/dL Very High Triglyceride: greater than or equal to 5OO mg/dL Cholesterol 149 <200 mg/dL Desirable Cholesterol: less than 200 mg/dL Borderline High Cholesterol: 200-239 mg/dL High Cholesterol: greater than 239 mg/dL LDL Cholesterol Calculated 83 <100 mg/dL Desirable LDL: less than 100 mg/dL Near Optimal/Above Optimal LDL: 110-129 mg/dL Borderline High LDL: 130-159 mg/dL High LDL: 160-189 mg/dL Very High LDL: greater than or equal to 190 mg/dL HDL Cholesterol 52 >40 mg/dL Desirable HDL: greater than 40 mg/dL Note: This HDL assay may give artificially low results in patients with liver disease. Vitamin D 25-OH Total Reviewed date:08/30/2024 04:30:46 PM Interpretation: Performing Lab:[facility], [address] [place] [phone] Notes/Report: Vitamin D 25-OH Total 69.0 >30 ng/mL Health Based Reference Values* < 20 ng/mL Deficient 20-30 ng/mL Insufficient > 30 ng/mL Sufficient *Eleazar GOMEZ. N Engl J Med. 2007;357:266-280 Care must be taken in interpreting Vitamin D results from different laboratories and methodologies. Published data demonstrated that results from patients undergoing hemodialysis may show a negative bias when tested with various automated 25-OH vitamin D assays when compared to LC-MS/MS. When testing samples from patients whose predominant form of Vitamin D is Vitamin D2, such as patients receiving Vitamin D2 supplementation, results that are subtherapeutic should be confirmed with another method such as LC-MS/MS. Urine Culture Reviewed date:08/30/2024 04:34:57 PM Interpretation: Performing Lab:[address] [phone] Notes/Report: Urine Culture Report Result Urine Culture > 100,000 cfu/ml Urine Culture Mixed bacterial gumaro a characteristic of Urine Culture urogenital contamination. UA CC w/rflx Micro + Cult Reviewed date:09/02/2024 12:29:37 PM Interpretation: Performing Lab:[facility], [address] [place] [phone] Notes/Report: Urine, Clean Catch Color Urine Yellow Appearance Urine Turbid PH 6.5 5.0-9.0 Glucose Urine UA Negative Negative mg/dL Urine Blood Small (1+) Negative Specific [place] - Urine 1.015 1.005-1.025 Urine Protein 30 (1+) Neg-Trace mg/dL Urine Ketones Negative Negative mg/dL Nitrite Urine Positive Negative Leukocyte Esterase Urine Large (3+) Negative UA ClnCatch+Micro w/rflx Cul t Reviewed date:09/02/2024 02:08:14 PM Interpretation: Performing Lab:[facility], [address] [place] [phone] Notes/Report: Urine, Clean Catch Color Urine Yellow Appearance Urine Turbid PH 6.5 5.0-9.0 Glucose Urine UA Negative Negative mg/dL Urine Blood Small (1+) Negative Specific [place] - Urine 1.015 1.005-1.025 Urine Protein 30 (1+) Neg-Trace mg/dL Urine Ketones Negative Negative mg/dL Nitrite Urine Positive Negative Leukocyte Esterase Urine Large (3+) Negative RBC Urine 3-5 0-2 /HPF WBC Urine >50 0-5 /HPF WBC Clumps Urine Present Squamous Epithelial Cell Urine 3-5 0-2 /HPF Bacteria Urine 2+ None Seen Hyaline Casts Urine 0-2 0-2 /LPF Basic Metabolic Panel Reviewed date:10/25/2024 02:51:49 PM Interpretation: Performing Lab:[facility], [address] [place] [phone] Notes/Report: Sodium 143 135-145 mmol/L Potassium 3.8 3.3-5.1 mmol/L Chloride 109 96-108 mmol/L Carbon Dioxide 27 22-29 mmol/L Anion Gap 11 12-20 Blood Urea Nitrogen 20 9-16 mg/dL Creatinine 0.75 0.5-1.4 mg/dL Estimated Glomerular Filt Rate > 60 Chronic Kidney Disease: Estimated GFR < 60 mL/min/1.73m2 Severe Kidney Disease: Estimated GFR < 15 mL/min/1.73m2 Glucose Random 84 60-115 mg/dL Calcium 9.9 8.4-10.2 mg/dL Albumin Level Reviewed date:10/25/2024 02:42:21 PM Interpretation: Performing Lab:[facility], [address] [place] [phone] Notes/Report: Albumin Level 4.1 3.5-5.0 g/dL Lipid Panel Reviewed date:03/10/2025 12:46:41 PM Interpretation: Performing Lab:[facility], [address] [place] [phone] Notes/Report: Triglycerides 69 <150 mg/dL Desirable Triglyceride: less than 150 mg/dL Borderline High Triglyceride 150-199 mg/dL High Triglyceride: 200-499 mg/dL Very High Triglyceride: greater than or equal to 5OO mg/dL Cholesterol 160 <200 mg/dL Desirable Cholesterol: less than 200 mg/dL Borderline High Cholesterol: 200-239 mg/dL High Cholesterol: greater than 239 mg/dL LDL Cholesterol Calculated 94 <100 mg/dL Desirable LDL: less than 100 mg/dL Near Optimal/Above Optimal LDL: 110-129 mg/dL Borderline High LDL: 130-159 mg/dL High LDL: 160-189 mg/dL Very High LDL: greater than or equal to 190 mg/dL HDL Cholesterol 53 >40 mg/dL Desirable HDL: greater than 40 mg/dL Note: This HDL assay may give artificially low results in patients with liver disease. Reason For Referral Reason please eval and shaan t for PT Diagnosis 1 Back pain (M54.9) Diagnosis 2 Right knee pain (M25 .561) Diagnosis 3 Acute right ankle pa in (M25.571) Referral Organization Stevenson Ahn MD Referring Provider First Name Stevenson Referring Provider Last Name Jimy Referring Provider Speciality Internal M edicine Referred Provider PIONEER, [facility] S Referred Provider Specialty Physical The rapist General Notes Kelly Healy 10:32:46 AM EDT > info faxed , NirajKelly 05/09/2024 11:13:13 AM EDT > patient will be calling to make her own appt and will call us back with the info , NirajKelly 05/09/2024 02:08:36 PM EDT > patient is aware of appt Referral Priority Routine Referral Appointment Date 05/19/2024 Medications Medication SIG (Take, Route, Frequency, Duration) Notes Start Date End Date Status Prolia 60 MG/ML as directed Subcutaneous Active Aspirin Adult Low Strength 81 MG 1 tablet Orally Once a day A ctive Atorvastatin Calcium 20 MG TAKE 1 TABLET ONCE DAILY Orally Once a day Active Social History Tobacco Use: Social History Observation [...] ast year? 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 Problem 155460591 Lumbar disc dise ase (M51.9) Active confirmed Problem 132094235 Tubular adenoma of colon (D12.6) Active confirmed Problem 77780457 Osteoporosis (M81.0) Active confirmed Problem 217142055 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) Active confirmed Problem 652427508783546 Sciatica of righ t side (M54.31) Active confirmed Problem 734327930 Pure hypercholesterolemia (E78.00) Active confirmed Vital Signs Blood pressure diastolic 56 mm Hg 03/23/2025 Height 62 in 03/23/2025 Blood pressure systolic 92 mm Hg 03/23/2025 Weight 111 lbs 03/23/2025 BMI 20.3 kg/m2 03/23/2025 Encounters Encounter Location Date Provider Diagnosis Stevenson Ahn MD [address] [place], [place] [id number] 04/28/2024 Stevenson Ahn Fatigue R53.83 Stevenson Ahn MD [address] [place] [id number] 03/23/2025 Stevenson Ahn Finger pain, right M 79.644 Stevenson Ahn MD [address] [place] [id number] 09/02/2024 Stevenson Ahn Microscopic hematuri a R31.29 ; Hypervitaminosis D E67.3 ; Sciatica of right side M54.31 ; Pure hypercholesterolemia E78.00 and Depression screening Z13.31 Stevenson Ahn MD [address] [place] [id number] 03/20/2025 Stevenson Ahn Pure hypercholestero lemia E78.00 and Knee pain M25.569 Stevenson Ahn MD [address] [place] [id number] 05/03/2024 Stevenson Ahn MD [address] [place] [id number] 07/19/2024 Stevenson Pearl hypercholestero lemia E78.00 Stevenson Ahn MD [address] [place] [id number] 08/11/2024 Stevenson Ahn MD [address] [place] [id number] 09/02/2024 Stevenson Ahn Assessments Encounter Date Diagnosis (ICD Code) Assessment Notes Treatment Notes Treatment Clinical Notes Section Notes 04/28/2024 Fatigue (ICD-10 - R53.83) 03/23/2025 Finger pain, right (ICD-10 - M79.644) is getting a lot better. will use ibuprofen for a few days 09/02/2024 Microscopic hematuri a (ICD-10 - R31.29) pending labs, will continue to monitor 09/02/2024 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) good vit d, will continue to monitor and continue current regiment 03/20/2025 Pure hypercholesterolemia (ICD-10 - E78.00) is doing great., glen continue current regiment 03/20/2025 Knee pain (ICD-10 - M25.569) has been getting better so will observe. 07/19/2024 Pure hypercholesterolemia (ICD-10 - E78.00) 09/02/2024 Sciatica of right si de (ICD-10 - M54.31) doing well with exercise 09/02/2024 Pure hypercholesterolemia (ICD-10 - E78.00) stable, will continue curent regiment 09/02/2024 Depression screening (ICD-10 - Z13.31) negative screen Plan Of Treatment Pending Test Test Name Order Date Electrocardiogram (EKG) 03/06/2016 Electrocardiogram (EKG) 04/27/2018 MRI LUMBAR SPINE NO CONTRAST 03/14/2024 BONE DENSITY DEXA 01/19/2014 US CAROTID BILATERAL DOPPLER 05/22/2022 Next Appt Details Provider Name:Stevenson Canseco ier, 08/29/2025 08:15:00 AM, [address] [place] [address], [address], [phone], Provider Name:Stevenson Canseco ier, 09/07/2025 01:30:00 PM, [address] [place] [address], [place] [address], [place], [place], [id number], Insurance Providers Payer Name Payer Address Payer Phone Subscriber Number Group Number Insured Name Patient Relationship to Insured Coverage Start Date Coverage End Date MEDICARE [address] [place] [address] [id number] Merlny Ng Self - patient is the insured MEDEX BC OF [facility] [id number] [place] [address] [id number] Merlyn Ng Self - patient is the insured Medical (General) History Medical History History ICD Code colonoscopy 2011 negative; d ue to age no further testing indicated per Dr. Mancilla tia 2011 with loss of vision Lung nodule seen on imaging study no need for further evaluation due to size and stablilitys R91.1 Surgical History Surgery Date(Month/Year) Right breast mastectomy 2008 Left breast lumpectomy 2002
[2025-04-28 16:14] LABS: Albumin Level 4.3 g/dL (3.5-5.0); Anion Gap 14 (12-20); Blood Urea Nitrogen 20 mg/dL (9-16); Calcium 10.2 mg/dL (8.4-10.2); Carbon Dioxide 27 mmol/L (22-29); Chloride 105 mmol/L (96-108); Estimated Glomerular Filt Rate > 60; Potassium 4.0 mmol/L (3.3-5.1); Sodium 142 mmol/L (135-145)
== END 2025-04-28 12:29 | disposition home or self-care (01) ==
LOC: HO.HMGCLDS 12:28
PROVIDERS: PCP Internal Medicine; Visit Provider Internal Medicine Endocrinology, Diabetes & Metabolism
DX: M81.0 Age-related osteoporosis without current pathological fracture (principal)
CPT/HCPCS: 36415; 80048; 82040

== ENCOUNTER 2025-05-11 12:53 | Outpatient (AMB) | payer MEDICARE, SELFPAY ==
--- OUTSIDE RECORDS SUMMARY | 2024-09-02 09:30 | XMS_ITS ---
Author Organization Stevenson Ahn MD Address [address] [place], [place] [id number] Care Team Providers Care Document Image Technician Name Role Phone Stevenson Ahn Primary Care Provider [phone] Allergies No Known Allergies REASON FOR VISIT [...] Ahn MD [address] [place], [place] [phone] 09/02/2024 Stevenson Ahn Microscopic hematuri a R31.29 [...] Provider Name:Stevenson Canseco ier, 08/29/2025 08:15:00 AM, [address] [place] [address], [address] [place] [address], [id number], Provider Name:Stevenson Canseco ier, 09/07/2025 01:30:00 PM, [address] [place] [address], [address] [place] [address], [phone], Progress Notes * Merlyn FERNANDEZ ADOB:[birth year] (89 yo F)Acc No.[id number]:09/02/2024 Patient: Gail Merlyn pierre A Provider: Gail Ahn MD :1935 A ge:89 Y S ex:Female Date:09/02/2024 Address:[address] [place] [address] [place], [id number] Subjective: * Chief Complaints: * R eview [...] Auto 0.000 0.0-0.012 - X10*3/uL L ab:Comprehensive [place]. Panel Fast (Order Date - 08/29/2024) (Collection [...] to auscultation bilaterally. BREASTS: d one by obstetrics/gynecology nurse. ABDOMEN: s oft, nontender, nondistended, bowel sounds present, normal, no organomegaly , no masses palpable. RECTAL EXAM: d one by obstetrics/gynecology nurse. FEMALE GENITOURINARY: d one by obstetrics/gynecology nurse. EXTREMITIES: n o clubbing, cyanosis, or edema. [...] 09/02/2024 Generated for Rosamaria smallwood/Cortez/Manny on: 0 05/11/2025 05:00 PM EDT History and Physical Notes * [...] cyanosi s, or edema BREASTS: done by obstetrics/gynecology nurse RECTAL EXAM: done by obstetrics/gynecology nurse FEMALE GENITOURINARY: done by obstetrics/gynecology nurse ORAL CAVITY: mucosa moist
--- OUTSIDE RECORDS SUMMARY | 2024-09-27 05:30 | XMS_ITS ---
Author Organization Stevenson Ahn MD Address [address] [place], [place] [phone] Care Team Providers Care Energy Control Officer Name Role Phone Stevenson Ahn Primary Care Provider Results Component Value Reference Range Notes Urinalysis and Microscopic Reviewed date:09/29/2024 04:54:58 PM Interpretation: Performing Lab:[facility], [address] [place] [phone] Notes/Report: Color Urine Yellow Appearance Urine Clear PH 7.0 5.0-9.0 Glucose Urine UA Negative Negative mg/dL Urine Blood Negative Negative Specific [place] - Urine 1.020 1.005-1.025 Urine Protein Negative [...] Ahn MD [address] [place], [place] [phone] 09/27/2024 Stevenson Ahn Microscopic hematuria R31.29 Assessments Encounter Date Diagnosis (ICD Code) Assessment Notes Treatment Notes Treatment Clinical Notes Section Notes 09/27/2024 Microscopic hematuria (ICD-10 - R31.29) Plan Of Treatment Next Appt Details Provider Name:Stevenson Canseco ier, 08/29/2025 08:15:00 AM, [address], [address], [place], [place], [phone], Provider Name:Stevenson Canseco ier, 09/07/2025 01:30:00 PM, [address], [address], [place], [place], [phone], Progress Notes * Merlyn FERNANDEZ ADOB:[birth year] (89 yo F)Acc No.[id number]:09/27/2024 Progress Note Patient: Merlyn CASTANON Provider: Gail Ahn MD :1935 A ge:89 Y S ex:Female Date:09/27/2024 Address:[address] [place], [place] [phone] Subjective: * Chief Complaints: * 1 . [...] Ahn MD Date: 09/27/2024 Generated for Rosamaria smallwood/Cortez/Manny on: 05/11/2025 05:00 PM EDT
--- OUTSIDE RECORDS SUMMARY | 2025-03-10 04:30 | XMS_ITS ---
Author Organization Stevenson Ahn MD Address [address] [place], [place] [phone] Care Team Providers Care Director Sales Support Name Role Phone Stevenson Ahn Primary Care Provider [phone] Results Component Value Reference Range Notes Liver Panel Reviewed date:03/10/2025 12:44:38 PM Interpretation: Performing Lab:[facility], [address] [place] [phone] Notes/Report: Bilirubin Total 0.6 0.0-1.0 mg/dL Bilirubin Direct 0.2 0.0-0.5 mg/dL Aspartate Amino Transferase 29 5-31 U/L Alanine Aminotransferase 15 0-31 U/L Total Protein 7.5 6.5-8.0 g/dL Albumin Level 4.1 3.5-5.0 g/dL Alkaline Phosphatase 49 39-117 U/L REASON FOR VISIT FASTING LIPDS Encounters Encounter Location Date Provider Diagnosis Stevenson Ahn MD [address] [place] [phone] 03/10/2025 Stevenson Ahn Pure hypercholestero lemia E78.00 Assessments Encounter Date Diagnosis (ICD Code) Assessment Notes Treatment Notes Treatment Clinical Notes Section Notes 03/10/2025 Pure hypercholesterolemia (ICD-10 - E78.00) Plan Of Treatment Pending Test Test Name Order Date Lipid Panel with Reflex 03/10/2025 Next Appt Details Provider Name:Stevenson Canseco ier, 08/29/2025 08:15:00 AM, [address], [address], [place], [place], [phone], Provider Name:Stevenson Canseco ier, 09/07/2025 01:30:00 PM, [address] [facility] [address], [address], [place], [place], [phone], Progress Notes * Merlyn FERNANDEZ ADOB:[birth year] (89 yo F)Acc No.[id number]:03/10/2025 Progress Note Patient: Merlyn CASTANON Provider: Gail Ahn MD :1935 A ge:89 Y S ex:Female Date:03/10/2025 Address:[address] [place] [address] [place] [id number] Subjective: * Chief Complaints: * 1 . [...] Date: 03/10/2025 Generated for Rosamaria smallwood/Cortez/Prabhaitting on: 05/11/2025 05:00 PM EDT
--- OUTSIDE RECORDS SUMMARY | 2025-03-20 10:00 | XMS_ITS ---
Author Organization Stevenson Ahn MD Address [address] [place], [place] [phone] Care Team Providers Care Hairspring Inspector Name Role Phone Stevenson Ahn Primary [...] Ahn MD [address] [place], [place] [phone] 03/20/2025 Stevenson Ahn Pure hypercholestero lemia E78.00 [...] Name:Stevenson Canseco ier, 08/29/2025 08:15:00 AM, [address], [address], [place], [place], [phone], Provider Name:Stevenson Canseco ier, 09/07/2025 01:30:00 PM, [address], [address], [place], [place], [phone], Progress Notes * Merlyn FERNANDEZ ADOB:[birth year] (89 yo F)Acc No.[id number]:03/20/2025 Progress Notes Patient: Merlyn CASTANON Provider: Gail Ahn MD :1935 A ge:89 Y S ex:Female Date:03/20/2025 Address:[address] [place] [address] [id number] Subjective: * Chief Complaints: * 6 MO [...] Date: 03/20/2025 Generated for Rosamaria smallwood/Cortez/eTrossysmitting on: 05/11/2025 05:01 PM EDT History and Physical Notes * HPI (History of Present Illness) Category Sub-Category Detail Notes Category Not es Symptom(s) patient is a 89 yo female here for 6 month follow up visit/ left knee hurts. especially stairs. has cruching. is getting better.
--- OUTSIDE RECORDS SUMMARY | 2025-03-23 08:45 | XMS_ITS ---
Author Organization Stevenson Ahn MD Address [address] [place], [place] [phone] Care Team Providers Care District Superintendent Name Role Phone Stevenson Ahn Primary Care [...] Stevenson Ahn MD [address] [place] [phone] 03/23/2025 Stevenson Ahn Finger pain, right M79.644 [...] 08:15:00 AM, [address], [address], [place], [place], [phone], Provider Name:Stevenson Canseco ier, 09/07/2025 01:30:00 PM, [address], [address], [place], [place], [phone], Progress Notes * Merlyn FERNANDEZ ADOB:[birth year] (89 yo F)Acc No.[id number]:03/23/2025 Progress Notes Patient: Merlyn CASTANON Provider: Gail Ahn MD :1935 A ge:89 Y S ex:Female Date:03/23/2025 Address:[address] [place] [address] [id number] Subjective: * Chief Complaints: * 1 . [...] 0 03/23/2025 Generated for Rosamaria smallwood/Cortez/Prabhaitting on: 0 05/11/2025 05:00 PM EDT History [...]
--- NOTE | 2025-05-11 13:04 | A.OFFVIS_ITS ---
Vital Signs 05/11/25 13:08 Height 5 ft 1.97 in Weight 111 lb 1.808 oz BMI 20.3 BP 118/64 Blood Pressure Location Lt brachial Position Sitting Pulse 65 Pulse Source Pulse Oximeter Pulse Oximetry (%) 94 Oxygen Delivery Method Room Air Intake Visit Reasons: f/u osteoporosis/prolia injection Intake Note: Patient present today for Osteoporosis follow up and Prolia Injection. Loom Tuner Required: No Accompanied by: Spouse Allergies No Known Allergies Allergy (Mild, Verified 05/11/25 13:12) NKA Medication List - Last Reconciled 05/11/25 by Luis Fernando Rene MD atorvastatin 20 mg PO DAILY cefuroxime axetil 500 mg PO Q12H denosumab (Prolia) 60 mg subcut [id number] multivitamin (Daily Multi-Vitamin tablet) 1 tab PO DAILY HPI Comments Details: 89 YO Female who is seen in F/U for Osteoporosis. First diagnosed in 2001. Received treatment in the past with Fosamax from 2001 to 2010. She did fail treatment with Fosamax as she had acute worsening of her BMD while on treatment. She was diagnosed with bilateral breast cancer and had a R sided mastectomy. She was treated with Chemo/Radiation and was also treated with Anastrazole from 7962-3830. She had a repeat BMD in 2019, which revealed a loss of BMD of 16% in her L hip. After her initial visit with me she underwent full biochemical workup for secondary causes of Osteoporosis 08/09/19. Her Calcium was high normal at 10.4, albumin 4.4, Vitamin D 52, and PTH of 45, indicating likely mild primary hyperparathyroidism. She opted for medical management and no surgical parathyroidectomy. Decision was made to proceed with Prolia. She received 6 doses so far 10/12/2019, 04/11/2020, 10/17/2020, 04/18/2021, 10/23/2021, 04/23/2022. No history of pathologic fracture or ONJ. Has 4 servings of dietary calcium per day in the form of almond milk, cheese and ice cream. Does not take a Calcium Supplement. Does not take Vitamin D supplement. Denies ever using PPI, anticoagulant, antiepileptic or glucocorticoid medication. Does weight bearing exercise most days of the week in the form of walking. Walks between [address]41-[address] steps per day. She also does [employer] and rides a bike. Fracture history: Denies any fractures. 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 Menses was always regular. , she did not breastfeed. Menopause was mid 50's. Did use HRT from from age 53 for 8 years until the year 1999. History of Kidney stones: Denies. Denies Family history of Osteoporosis or hip fracture. UTD on dental cleanings and sees dentist every 6 months. No planned [facility] [place] dental work or extractions. DXA dated 05/07/2021: FINDINGS: AP SPINE L1-L3 (excluding L4): The data of L1-L4 has been changed to exclude the L4 vertebral body, because degenerative changes at this level may cause overestimation of lumbar spine density. Current: BMD 0.801 g/cm2, Z-score -0.6, T-score -3.1, osteoporosis, 6.9% increase from previous, 0.2% decrease from baseline (<5% change is not significant). Prior: BMD 0.749 g/cm2. Baseline: BMD 0.803 g/cm2. LEFT FEMUR, NECK: Current: BMD 0.854 g/cm2, Z-score 1.4, T-score -1.3, osteopenia. Prior: BMD 0.752 g/cm2. Baseline: BMD 0.846 g/cm2. LEFT FEMUR, TOTAL: Current: BMD 0.820 g/cm2, Z-score 1.2, T-score -1.5, osteopenia, 18.2% increase from previous, 4.3% decrease from baseline (<5% change is not significant). Prior: BMD 0.694 g/cm2. Baseline: BMD 0.857 g/cm2. Labs: Laboratory Tests 10/13/22 10/13/22 10/14/22 13:43 13:43 04:50 Creatinine 0.83 Estimated GFR > 60 N-Telopeptide X-linked 15 25-OH Vitamin D Total 39.9 PTH Intact 62 Calcium (PTH Intact) 10.0 received 5 years of Prolia injections [facility] Medical History Hyperparathyroidism Osteoporosis Vitamin D deficiency Surgical History History of right cataract surgery History of left cataract surgery Hx of eye surgery Hx of cholecystectomy Hx of total mastectomy of right breast Family History Father CVD (cardiovascular disease) Stroke Mother Heart disease Social History Alcohol intake: never Patient Tobacco Use Status: Never used Tobacco Physical Exam Vital Signs: BMI result Body Mass Index 20.3 Assessment & Plan Assessment & Plan (1) Osteoporosis: Code(s): M81.0 - Age-related osteoporosis without current pathological fracture Category: Medical Qualifiers: Osteoporosis type: unspecified Presence of current pathological fracture: unspecified Qualified Code(s): M81.0 - Age-related osteoporosis without current pathological fracture Plan: This 89-year-old white female with history of osteoporosis with negative secondary workup currently being treated with Prolia 60 mg Q 6 months. Last DEXA bone density has improved with Prolia. Due for Prolia injection today . Would proceed with Prolia injection today. Inform patient to go for repeat DEXA bone density next month. Based on the above, could consider transitioning are Prolia and to oral or intravenous bisphosphonate Coding Level of Care Code Est Pt Level 3 (07673) Diagnoses Osteoporosis, unspecified osteoporosis type, unspecified pathological fracture presence M81.0 Osteoporosis type: unspecified Presence of current pathological fracture: unspecified
[2025-05-11 13:08] VITALS: BP 118/64; PULSE 65; O2SAT 94; BMI 20.3
--- OUTSIDE RECORDS SUMMARY | 2025-05-11 17:01 | XMS_ITS | Patient Health Record ---
Author Organization [facility] GrossHaris Address [address] [place] [address] Care Team Providers Care Senior National Account Manager Name Role Phone Stevenson Ahn MD Primary Care Provider Eric De La Vega Unavailable [phone] Reason For Referral No Information Medications Medication SIG (Take, Route, Frequency, Duration) Notes Start Date End Date Status Lipitor 20 MG 1 tablet Orally Once a day; Duration: 30 day(s) Active Problems Problem Type SNOMED Code ICD Code Onset Dates Problem Status W/U Status Risk Notes Problem Neuralgia - Neuritis (729.2) Active confirmed Problem Hallux valgus (826031491) Hallux Valgus (735.0) Active confirmed Problem 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, 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 Problem Pain in limb (41704869) Pain in Limb (729.5) Active confirmed Plan Of Treatment Pending Test Test Name Order Date X ray : Foot, left 3V 07/12/2014 [id number], [id number] Neuroma/Injection 11/14/19 15 Insurance Providers Payer Name Payer Address Payer Phone Subscriber Number Group Number Insured Name Patient Relationship to Insured Coverage Start Date Coverage End Date Medicare [facility] [employer] [address] [place] [address] [phone] [id number] Dariorodolfo Merlyn Self - patient is the insured [employer] [address] [place] [address] [id number] Berenice Merlyn Self - patient is the insured Medical (General) History Medical History History ICD Code cancer cataracts chickenpox osteoporosis measles Surgical History Surgery Date(Month/Year) lumpectomy 09/09/2002 lumpectomy 09/18/2002 mastectomy 11/17/2008 right eye cataract surgery 10/23/2014 left eye cataract surgery 11/06/2014
--- OUTSIDE RECORDS SUMMARY | 2025-05-11 17:01 | XMS_ITS | Patient Health Record ---
Author Organization Stevenson Ahn MD Address [address] [place], [place] [id number] Care Team Providers Care Sports [employer] Membership Advisors Name Role Phone Stevenson Ahn Primary Care Provider Allergies No Known Allergies Results Component Value Reference Range Notes Complete Blood Count Auto Di ff Reviewed date:08/30/2024 04:45:30 PM Interpretation: Performing Lab:[facility], [address] [place] [phone] Notes/Report: White Blood Count 8.9 4.8-10.8 X10*3/uL [...] NRBC Abs Auto 0.000 0.0-0.012 X10*3/uL Comprehensive [place]. Panel Fa Reviewed date:08/30/2024 04:43:02 PM Interpretation: Performing Lab:[facility], [address] [place] [phone] Notes/Report: Sodium 141 135-145 mmol/L Potassium 3.8 [...] Panel Reviewed date:08/30/2024 04:31:04 PM Interpretation: Performing Lab:[facility], [address] [place] [phone] Notes/Report: Bilirubin Direct 0.2 0.0-0.5 mg/dL Lipid Panel Reviewed date:08/30/2024 04:30:56 PM Interpretation: Performing Lab:[facility], [address] [place] [phone] Notes/Report: Triglycerides 74 <150 mg/dL Desirable Triglyceride: [...] Total Reviewed date:08/30/2024 04:30:46 PM Interpretation: Performing Lab:[facility], [address] [place] [phone] Notes/Report: Vitamin D 25-OH Total 69.0 >30 [...] Culture Reviewed date:08/30/2024 04:34:57 PM Interpretation: Performing Lab:[facility], [address] [place] [phone] Notes/Report: Urine Culture Report Result Urine Culture > 100,000 cfu/ml Urine Culture Mixed bacterial gumaro a characteristic of Urine Culture urogenital contamination. UA CC w/rflx Micro + Cult Reviewed date:09/02/2024 12:29:37 PM Interpretation: Performing Lab:[address] [phone] Notes/Report: Urine, Clean Catch Color Urine Yellow Appearance Urine Turbid PH 6.5 5.0-9.0 Glucose Urine UA Negative Negative mg/dL Urine Blood Small (1+) Negative Specific [place] - Urine 1.015 1.005-1.025 Urine Protein 30 (1+) Neg-Trace mg/dL Urine Ketones Negative Negative mg/dL Nitrite Urine Positive Negative Leukocyte Esterase Urine Large (3+) Negative UA ClnCatch+Micro w/rflx Cul t Reviewed date:09/02/2024 02:08:14 PM Interpretation: Performing Lab:[facility], [address] [place] [phone] Notes/Report: Urine, Clean Catch Color Urine Yellow Appearance Urine Turbid PH 6.5 5.0-9.0 Glucose Urine UA Negative Negative mg/dL Urine Blood Small (1+) Negative Specific [place] - Urine 1.015 1.005-1.025 Urine Protein 30 [...] Panel Reviewed date:10/25/2024 02:51:49 PM Interpretation: Performing Lab:[address] [phone] Notes/Report: Sodium 143 135-145 mmol/L Potassium 3.8 [...] Level Reviewed date:10/25/2024 02:42:21 PM Interpretation: Performing Lab:[address] [address] Notes/Report: Albumin Level 4.1 3.5-5.0 g/dL Lipid Panel Reviewed date:03/10/2025 12:46:41 PM Interpretation: Performing Lab:[address] [address] Notes/Report: Triglycerides 69 <150 mg/dL Desirable Triglyceride: [...] low results in patients with liver disease. Basic Metabolic Panel Reviewed date:04/28/2025 06:40:09 PM Interpretation: Performing Lab:[address] [address] Notes/Report: Sodium 142 135-145 mmol/L Potassium 4.0 3.3-5.1 mmol/L Chloride 105 96-108 mmol/L Carbon Dioxide 27 22-29 mmol/L Anion Gap 14 12-20 Blood Urea Nitrogen 20 9-16 mg/dL Creatinine 0.79 0.5-1.4 mg/dL Estimated Glomerular Filt Rate > 60 Chronic Kidney Disease: Estimated GFR < 60 mL/min/1.73m2 Severe Kidney Disease: Estimated GFR < 15 mL/min/1.73m2 Glucose Random 78 60-115 mg/dL Calcium 10.2 8.4-10.2 mg/dL Albumin Level Reviewed date:04/28/2025 05:07:20 PM Interpretation: Performing Lab:[facility], [address] [place] [address], [place] [address] Notes/Report: Albumin Level 4.3 3.5-5.0 g/dL Reason For Referral No Information Medications Medication [...] Problem Status W/U Status Risk Notes Problem 807399567 TIA (transient ischemic attack) (G45.9) Active confirmed Problem Constipation (93840552) Constipation (K59.00) Active confirmed Problem Hypervitaminosis D (61907750) 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 Problem 981959477 Lumbar disc dise ase (M51.9) Active confirmed Problem 134759366 Tubular adenoma of colon (D12.6) Active confirmed Problem 32038372 Osteoporosis (M81.0) Active confirmed Problem 342869749 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) Active confirmed Problem 656155915451922 Sciatica of righ t side (M54.31) Active confirmed Problem 524062190 Pure hypercholesterolemia (E78.00) Active confirmed Vital Signs Blood pressure diastolic 56 mm Hg 03/23/2025 Height 62 in 03/23/2025 Blood pressure systolic 92 mm Hg 03/23/2025 Weight 111 lbs 03/23/2025 BMI 20.3 kg/m2 03/23/2025 Encounters Encounter Location Date Provider Diagnosis Stevenson Ahn MD [address] [place], [place] [id number] 03/23/2025 Stevenson Ahn Finger pain, right M 79.644 Stevenson Ahn MD [address] [place], [place] [id number] 09/02/2024 Stevenson Ahn Microscopic hematuri a R31.29 ; Hypervitaminosis D E67.3 ; Sciatica of right side M54.31 ; Pure hypercholesterolemia E78.00 and Depression screening Z13.31 Stevenson Ahn MD [address] [place] [id number] 03/20/2025 Stevenson Ahn Pure hypercholestero lemia E78.00 and Knee pain M25.569 Stevenson Ahn MD [address] [place] [id number] 07/19/2024 Stevenson Ahn Pure hypercholestero lemia E78.00 Stevenson Ahn MD [address] [place] [id number] 08/11/2024 Stevenson Ahn MD [address] [place] [id number] 09/02/2024 Stevenson Ahn Assessments Encounter Date Diagnosis [...] Name:Stevenson Canseco ier, 08/29/2025 08:15:00 AM, [address] [facility], [address], [place], [place], [id number], Provider Name:Stevenson Canseco ier, 09/07/2025 01:30:00 PM, [address] [facility], [address], [place], [place], [id number], Insurance Providers Payer Name Payer Address Payer Phone Subscriber Number Group Number Insured Name Patient Relationship to Insured Coverage Start Date Coverage End Date [employer] [address] [place] [address] [id number] Merlyn Ng Self - patient is the insured MEDEX BCBS OF [facility] [address] [place] [address] [id number] Merlyn Ng Self - patient is the [...]
--- OUTSIDE RECORDS SUMMARY | 2025-05-11 17:01 | XMS_ITS | Patient Health Record ---
Author Organization [facility] Address [address] [place] [address] Care Team Providers Care Coiler Operator Name Role Phone Stevenson Ahn MD Primary Care Provider Luis Fernando Gillis Unavailable [phone] Reason For Referral No Information Medications Medication [...] Risk Notes Problem Benign neoplasm of colon (47264038) 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) Active confirmed Problem History of polyp of colon (situation) (891806638) Personal history of colonic polyps (V12.72) Active confirmed Problem Screening for malignant neoplasm of colon (958821093) Special screening for malignant neoplasms, colon (V76.51) Active confirmed Plan Of Treatment Future Test Test Name Order Date COLONOSCOPY 07/18/2011 Insurance Providers Payer Name Payer Address Payer Phone Subscriber Number Group Number Insured Name Patient Relationship to Insured Coverage Start Date Coverage End Date MEDICARE OF [place] [address] [place] [address] [phone] [id number] JIM JUSTINO Self - patient is the insured MEDEX ATT[employer] CLAIMS [address] [place] [address] [id number] ROBBYMAYNOR JUSTINO Self - patient is the insured Medical (General) History Medical History History ICD Code hyperlipidemia breast cancer-she had a left sided lumpectomy in 2002 with associated radiation treatments, right-sided breast cancer in August 2005 for which she underwent a lumpectomy and radiation treatments, and recurrence of breast cancer on the right side with subsequent mastectomy and chemotherapy in 2008 Denies AL,DM,CVA,Lung disease,renal dise ase Surgical History Surgery Date(Month/Year) breast cancer surgeries as above cholecystectomy eye surgery
== END 2025-05-11 13:32 | disposition home or self-care (01) ==
LOC: HO.ENCR 12:53
PROVIDERS: PCP Internal Medicine; Visit Provider Internal Medicine Endocrinology, Diabetes & Metabolism
DX: M81.0 Age-related osteoporosis without current pathological fracture (principal)
CPT/HCPCS: 99213

== ENCOUNTER → 2025-05-11 12:53 | Outpatient (BNVA) | payer MEDICARE, SELFPAY | PROVIDERS: PCP Internal Medicine; Visit Provider Internal Medicine Endocrinology, Diabetes & Metabolism | DX: M81.0 Age-related osteoporosis without current pathological fracture (principal) | CPT/HCPCS: 96372; 99212; J0897 ==

== ENCOUNTER 2025-06-30 13:10 | Outpatient (REF) | payer MEDICARE, SELFPAY ==
--- OUTSIDE RECORDS SUMMARY | 2024-05-03 07:08 | XMS_ITS ---
Author Organization Stevenson Ahn MD Address 10 [facility] [address] [place] [phone] Care Team Providers Care Clay Artist Name Role Phone Stevenson Ahn Primary Care Provider [phone] REASON FOR VISIT ?PT Encounters Encounter Location Date Provider Diagnosis Stevenson Ahn MD 10 [facility] [address] [place] [phone] 05/03/2024 Stevenson Ahn Plan Of Treatment Next Appt Details Provider Name:Stevenson mays, 08/29/2025 08:15:00 AM, [address] [place] [address], [place] [address], [place], [place], [phone], Provider Name:Stevenson mays, 09/07/2025 01:30:00 PM, [address] [place] [address], [address], [phone], Progress Notes * Merlyn FERNANDEZ ADOB:[birth year] (89 yo F)Acc No.[id number]:05/03/2024 Patient: Gail rangelsaeed Merlyn John :1935 A ge:89 Y S ex:Female Address:[address] [place] [phone] * true * Date: Generated for Printi cl/Faalirezag/eTransmitting on: 02:16 PM EDT
--- OUTSIDE RECORDS SUMMARY | 2024-07-19 07:27 | XMS_ITS ---
Author Organization Stevenson Ahn MD Address [address] [place], [place] [phone] Care Team Providers Care World History Teacher Name Role Phone Stevenson Ahn Primary Care Provider [phone] Medications Medication SIG (Take, Route, Frequency, Duration) Notes Start Date End Date Status Atorvastatin Calcium 20 MG TAKE 1 TABLET ONCE DAILY Orally Once a day for 90 days Active Encounters Encounter Location Date Provider Diagnosis Stevenson Ahn MD [address] [place], [place] [phone] 07/19/2024 Stevenson Ahn Pure hypercholestero lemia E78.00 Assessments Encounter Date Diagnosis (ICD Code) Assessment Notes Treatment Notes Treatment Clinical Notes Section Notes 07/19/2024 Pure hypercholesterolemia (ICD-10 - E78.00) Plan Of Treatment Medication Medication Name Sig Start Date Stop Date Notes Atorvastatin Calcium 20 MG TAKE 1 TABLET ONCE DAILY Orally Once a day for 90 days Next Appt Details Provider Name:Stevenson mays, 08/29/2025 08:15:00 AM, [address], [address] [facility], [place], [place], [phone], Provider Name:Stevenson mays, 09/07/2025 01:30:00 PM, [address] [facility], [address], [place], [place], [phone], Progress Notes * Merlyn FERNANDEZ ADOB:[birth year] (89 yo F)Acc No.[id number]:07/19/2024 Patient: Merlyn Valentin :1935 A ge:89 Y S ex:Female Address:[address] [place] [phone] * Refills Refill Atorvastatin Calcium Tablet, 20 MG, Orally, 90, TAKE 1 TABLET ONCE DAILY, Once a day, 90 days, Refills=4 * true * Date: Generated for Rosamaria smallwood/Cortez/Prabhaitting on: 02:17 PM EDT
--- OUTSIDE RECORDS SUMMARY | 2024-08-11 07:14 | XMS_ITS ---
Author Organization Stevenson Ahn MD Address [address] [facility] [address] [place], [place] [phone] Care Team Providers Care Lang Interpreter Name Role Phone Stevenson Ahn Primary Care Provider REASON FOR VISIT all lab test on orders Encounters Encounter Location Date Provider Diagnosis Stevenson Ahn MD [address] [facility] [address] [place], [place] [phone] 08/11/2024 Stevenson Ahn Plan Of Treatment Next Appt Details Provider Name:Stevenson mays, 08/29/2025 08:15:00 AM, [address] [place] [address], Suite [facility], [place], [place], [phone], Provider Name:Stevenson mays, 09/07/2025 01:30:00 PM, [address] [place] [address], Suite [facility], [place], [place], [phone], Progress Notes * Merlyn FERNANDEZ ADOB:[birth year] (89 yo F)Acc No.[id number]:08/11/2024 Patient: Gail rangelsaeed Merlyn John :1935 A ge:89 Y S ex:Female Address:[address] [place] [phone] * true * Date: Generated for Rosamaria smallwood/Cortez/eTransmitting on: 02:17 PM EDT
--- OUTSIDE RECORDS SUMMARY | 2024-08-15 05:00 | XMS_ITS ---
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 and TIA (transient ischemic attack) G45.9 Assessments Encounter Date Diagnosis (ICD Code) Assessment Notes Treatment Notes Treatment Clinical Notes Section Notes 08/15/2024 Osteoporosis (ICD-10 - M81.0) 08/15/2024 Pure hypercholesterolemia (ICD-10 - E78.00) 08/15/2024 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) 08/15/2024 TIA (transient ische maria elena attack) (ICD-10 - G45.9) Plan Of Treatment Next Appt Details Provider Name:Stevenson mays, 08/29/2025 08:15:00 AM, [address] [place] [address], [address], [phone], Provider Name:Stevenson mays, 09/07/2025 01:30:00 PM, [address] [place] [address], [address], [phone], Progress Notes * Merlyn FERNANDEZ ADOB:[birth year] (89 yo F)Acc No.[id number]:08/15/2024 Progress Note Patient: Merlyn CASTANON Provider: Gail Ahn MD :1935 A ge:89 Y S ex:Female Date:08/15/2024 Address:[address] [place] [address] [place], [phone] Subjective: * Chief Complaints: * 1 . FASTING LABS. * Medical History: Objective: * Vitals: Assessment: * Assessment: 1. O steoporosis - M81.0 2 . P ure hypercholesterolemia - E78.00 3 . H ypervitaminosis D - E67.3 4 . T IA (transient ischemic attack) - G45.9 Plan: * Treatment: 2. P ure hypercholesterolemia L AB: Complete Blood Count Auto Diff (Order Cancelled) L AB: Comprehensive [place]. Panel Fast (Order Cancelled) L AB: Liver Panel (Order Cancelled) L AB: Lipid Panel (Order Cancelled) L AB: Vitamin D 25-OH Total (Order Cancelled) L AB: UA ClnCatch+Micro w/rflx Cult (Order Cancelled) 3. H ypervitaminosis D L AB: Complete Blood Count Auto Diff (Order Cancelled) L AB: Comprehensive [place]. Panel Fast (Order Cancelled) L AB: Liver Panel (Order Cancelled) L AB: Lipid Panel (Order Cancelled) L AB: Vitamin D 25-OH Total (Order Cancelled) L AB: UA ClnCatch+Micro w/rflx Cult (Order Cancelled) 4. T IA (transient ischemic attack) L AB: Complete Blood Count Auto Diff (Order Cancelled) L AB: Comprehensive [place]. Panel Fast (Order Cancelled) L AB: Liver Panel (Order Cancelled) L AB: Lipid Panel (Order Cancelled) L AB: Vitamin D 25-OH Total (Order Cancelled) L AB: UA ClnCatch+Micro w/rflx Cult (Order Cancelled) * * The named appointment provid er may or may not be the originator of this progress note, and it is not deemed complete until electronically signed by the appointment provider. Sign off status: Pending * Provider: Gail Ahn MD Date: 1 10/16/2023 Generated for Rosamaria smallwood/Cortez/Manny on: 1 02:16 PM EDT
--- OUTSIDE RECORDS SUMMARY | 2024-09-02 09:09 | XMS_ITS ---
Author Organization Stevenson Ahn MD Address 10 [facility] [address] [place] [phone] Care Team Providers Care Car Wrecker Name Role Phone Stevenson Ahn Primary Care Provider Medications Medication SIG (Take, Route, Fr equency, Duration) Notes Start Date End Date Status Bactrim DS 800-160 MG 1 tablet Orally tw ice a day for 7 days 09/02/2024 Active Encounters Encounter Location Date Provider Diagnosis Stevenson Ahn MD 10 [facility] [address] [place] [phone] 09/02/2024 Stevenson Ahn Plan Of Treatment Medication Medication Name Sig Start Date Stop Date Notes Bactrim DS 800-160 MG 1 tablet Orally tw ice a day for 7 days 09/02/2024 Next Appt Details Provider Name:Stevenson mays, 08/29/2025 08:15:00 AM, [address] [place] [address], Suite [facility], [place], [place], [phone], Provider Name:Stevenson mays, 09/07/2025 01:30:00 PM, [address] [place] [address], [place] [address], [place], [place], [phone], Progress Notes * Merlyn FERNANDEZ ADOB:[birth year] (89 yo F)Acc No.[id number]:09/02/2024 Patient: Merlyn Valentin :1935 A ge:89 Y S ex:Female Address:[address] [place] [phone] * Refills Start Bactrim DS Tablet, 800-160 MG, Orally, 14 Tablet, 1 tablet, twice a day, 7 days * true * Date: Generated for Rosamaria smallwood/Cortez/Prabhaitting on: 02:18 PM EDT
--- OUTSIDE RECORDS SUMMARY | 2024-09-02 09:30 | XMS_ITS ---
Author Organization Stevenson Ahn MD Address [address] [place], [place] [id number] Care Team Providers Care Avionics Mechanic Name Role Phone Stevenson Ahn Primary Care Provider [phone] Allergies No Known Allergies REASON FOR VISIT review labs Medications Medication SIG (Take, Route, Frequency, Duration) Notes Start Date End Date Status Atorvastatin Calcium 20 MG TAKE 1 TABLET ONCE DAILY Orally Once a day Active Prolia 60 MG/ML as directed Subcutaneous Active Aspirin Adult Low Strength 81 MG 1 tablet Orally Once a day A ctive Social History Tobacco Use: Social History Observation Description Date Details (start date - stop date) Never Smoker NA - NA Tobacco Use/Smoking Question Answer Notes Patient is a nonsmoker Additional Findings: Tobacco Non-User Cu rrent non-smoker, currently using no form of tobacco Alcohol Screen Question Answer Notes Did you have a drink containing alcohol in the p ast year? 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 ; Sciatica of right side M54.31 ; Pure hypercholesterolemia E78.00 and Depression screening Z13.31 Assessments Encounter Date Diagnosis (ICD Code) Assessment Notes Treatment Notes Treatment Clinical Notes Section Notes 09/02/2024 Microscopic hematuri a (ICD-10 - R31.29) pending labs, will continue to monitor 09/02/2024 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) good vit d, will continue to monitor and continue current regiment 09/02/2024 Sciatica of right si de (ICD-10 - M54.31) doing well with exercise 09/02/2024 Pure hypercholesterolemia (ICD-10 - E78.00) stable, will continue curent regiment 09/02/2024 Depression screening (ICD-10 - Z13.31) negative screen Plan Of Treatment Medication Medication Name Sig Start Date Stop Date Notes Atorvastatin Calcium 20 MG TAKE 1 TABLET ONCE DAILY Orally Once a day Treatment Notes Assessment Notes Microscopic hematuria pending labs, will continue to monitor Hypervitaminosis D good vit d, will con tinue to monitor and continue current regiment Sciatica of right side doing well with e xercise Pure hypercholesterolemia stable, will c ontinue curent regiment Depression screening negative screen Next Appt Details Provider Name:Stevenson Canseco ier, 08/29/2025 08:15:00 AM, [address] [place] [address], [address] [place] [address], [phone], Provider Name:Stevenson Canseco ier, 09/07/2025 01:30:00 PM, [address] [place] [address], [address] [place] [address], [phone], Progress Notes * Merlyn FERNANDEZ ADOB:[birth year] (89 yo F)Acc No.[id number]:09/02/2024 Patient: Gail Merlyn pierre A Provider: Gail Ahn MD :1935 A ge:89 Y S ex:Female Date:09/02/2024 Address:[address] [place] [address] [place], [id number] Subjective: * Chief Complaints: * R eview labs * HPI: D epression Screening: PHQ-9 L ittle interest or pleasure in doing things N ot at all, F eeling down, depressed, or hopeless N ot at all, T rouble falling or staying asleep, or sleeping too much N ot at all, F eeling tired or having little energy N ot at all, P oor appetite or overeating N ot at all, F eeling bad about yourself or that you are a failure, or have let yourself or your family down N ot at all, T rouble concentrating on things, such as reading the newspaper or watching television N ot at all, M oving or speaking so slowly that other people could have noticed; or the opposite, being so fidgety or restless that you have been moving around a lot more than usual N ot at all, T houghts that you would be better off or of hurting yourself in some way N ot at all, T otal Score 0 . I nterpretation and Intervention D epression Screening Findings N egative, F ollow-Up for Depression : review of PHQ-9 found negative result, no follow-up needed. C ommunication Needs: Communication Needs D oes the patient have a hearing impairment N o, D oes the patient have a vision impairment? Y es, I f yes, what is the vision impairment? G lasses, D oes the patient have a cognition impairment? N o. F all Risk: History H ave you had any falls with injury in the past year? N o, H ave you had two or more falls in the past year? N o. S JOSITN Questions: SDOH Questions I n the past year have you been worried about losing housing? N o, I n the past year have you or any family members you live with been unable to get any of the following when it was really needed? Check all that apply: N one. * ROS: G eneral/Constitutional: Change in appetite d enies. C hills d enies. F ever d enies. O phthalmologic: Blurred vision d enies. D ischarge d enies. P ain d enies. E NT: Decreased hearing d enies. S ore throat d enies.?Swollen glands d enies. E ndocrine: Cold intolerance d enies. E xcessive thirst d enies. H eat intolerance d enies. W eight loss d enies. R espiratory: Cough d enies. S hortness of breath at rest d enies. S hortness of breath with exertion d enies. W heezing d enies. C ardiovascular: Chest pain at rest d enies. C hest pain with exertion?denies. I rregular heartbeat d enies. S hortness of breath d enies. ? G astrointestinal: Abdominal pain d enies. C hange in bowel habits d enies. D iarrhea d enies. N ausea d enies. R ectal bleeding d enies. V omiting d enies . G enitourinary: Blood in urine d enies. D ifficulty urinating d enies. F requent urination d enies. U rinary incontinence D enies. M usculoskeletal: Painful joints d enies. W eakness d enies. ? S kin: Dry skin d enies. I tching d enies. D enies?Mole(s), changes in moles, new moles or any lesions of concern. D enies P hotosensitivity. R melony d enies. N eurologic: Dizziness d enies. F ainting d enies. H eadache?denies. * Medical History: * Surgical History: * Hospitalization/Major Diagno stic Procedure: * Family History: F ather: 78 yrs. M other: 78 yrs. 1 brother(s) , 2 sister(s) . 3 daughter(s) . . Father cve Mother Cardiac , Denies mental health/substance abuse family history, No pertinent family medical history, Denies mental health/substance abuse family history, Denies mental health/substance abuse family history, Denies mental health/substance abuse family history. * Social History: T obacco Use: T obacco Use/Smoking P atient is a n onsmoker, A dditional Findings: Tobacco Non-User C urrent non-smoker, currently using no form of tobacco. D rugs/Alcohol: A lcohol Screen D id you have a drink containing alcohol in the past year? N o, P oints 0 , I nterpretation N egative. M iscellaneous: n o Caffeine. Children: yes. no Community involvements. Exercise: yes, ride bike tap dancing total gym yoga. Home smoke detector use: yes. Housing: owning. Living with: spouse. Marital status: . Occupation: retired. Pets: none. no Travel outside of the [place]. * Medications: T akingProlia 60 MG/ML Solution Prefilled Syringe as directed Subcutaneous Aspirin Adult Low Strength 81 MG Tablet Delayed Release 1 tablet Orally Once a dayAtorvastatin Calcium 20 MG Tablet TAKE 1 TABLET ONCE DAILY Orally Once a dayMedication List reviewed and reconciled with the patientTaking Prolia 60 MG/ML Solution Prefilled Syringe as directed Subcutaneous Taking Aspirin Adult Low Strength 81 MG Tablet Delayed Release 1 tablet Orally Once a dayTaking Atorvastatin Calcium 20 MG Tablet TAKE 1 TABLET ONCE DAILY Orally Once a dayMedication List reviewed and reconciled with the patient * Allergies: N .K.D.A.yes[Allergies Verified] Objective: * Vitals: H t: 62, Wt:111, BMI:20.30, BP:122/60 weight is up 3 pounds since 04-22-24. * P ast Orders: L ab:Vitamin D 25-OH Total (Order Date - 08/29/2024) (Collection Date - 08/29/2024) Value Reference Range Vitamin D 25-OH Total 69.0 >30 - ng/mL L ab:Urine Culture (Order Date - 08/29/2024) (Collection Date - 08/29/2024) Value Reference Range Urine Culture urogenital contamination. - L ab:Complete Blood Count Auto Diff (Order Date - 08/29/2024) (Collection Date - 08/29/2024) Value Reference Range White Blood Count 8.9 4.8-10.8 - X10*3/uL Red Blood Count 4.76 4.20-5.50 - X10*6/uL Hemoglobin 13.7 12.0-16.0 - g/dl Hematocrit 41.6 37.0-47.0 - % Mean Corpuscular Volume 87.4 80.0-98.0 - fL Mean Corpuscular Hemoglobin 28.8 27.0-33.0 - pg Mean Corpuscular HGB Conc 32.9 31.0-35.0 - g/dl Red Cell Distribution Width 13.6 11.0-16.0 - % Platelet Count 242 160-400 - X10*3/uL Mean Platelet Volume 10.4 9.4-12.3 - fL Neutrophils Percent Auto 54.6 45-73 - % Imm Gran Pct Auto 0.3 0.0-0.4 - % Lymphocytes Percent Auto 31.2 20-40 - % Monocytes Percent Auto 9.2 2-11 - % Eosinophils Percent Auto 3.5 0-4 - % Basophils Percent Auto 1.2 0-2 - % NRBC Pct Auto 0.0 0.0-0.2 - /100WBC Neutrophils Absolute Auto 4.9 2.0-8.3 - x10*3/uL Imm Gran Abs Auto 0.03 0.00-0.03 - X10*3/uL Lymphocytes Absolute Auto 2.8 1.2-4.9 - X10*3/uL Monocytes Absolute Auto 0.8 0.1-1.2 - X10*3/uL Eosinophils Absolute Auto 0.3 0.0-0.4 - X10*3/uL Basophils Absolute Auto 0.1 0.0-0.2 - X10*3/uL NRBC Abs Auto 0.000 0.0-0.012 - X10*3/uL L ab:Comprehensive [place]. Panel Fast (Order Date - 08/29/2024) (Collection Date - 08/29/2024) Value Reference Range Sodium 141 135-145 - mmol/L Bilirubin Total 0.6 0.0-1.0 - mg/dL Aspartate Amino Transferase 29 5-31 - U/L Alanine Aminotransferase 15 0-31 - U/L Total Protein 7.7 6.5-8.0 - g/dL Albumin Level 4.2 3.5-5.0 - g/dL Alkaline Phosphatase 54 39-117 - U/L Potassium 3.8 3.3-5.1 - mmol/L Chloride 107 96-108 - mmol/L Carbon Dioxide 26 22-29 - mmol/L Anion Gap 12 12-20 - Blood Urea Nitrogen 15 9-16 - mg/dL Creatinine 0.89 0.5-1.4 - mg/dL Estimated Glomerular Filt Rate 60 - Glucose Fasting 106 H 60-99 - mg/dL Calcium 9.9 8.4-10.2 - mg/dL L ab:Liver Panel (Order Date - 08/29/2024) (Collection Date - 08/29/2024) Value Reference Range Bilirubin Direct 0.2 0.0-0.5 - mg/dL L ab:Lipid Panel (Order Date - 08/29/2024) (Collection Date - 08/29/2024) Value Reference Range Triglycerides 74 <150 - mg/dL Cholesterol 149 <200 - mg/dL LDL Cholesterol Calculated 83 <100 - mg/dL HDL Cholesterol 52 >40 - mg/dL * Examination: G eneral Examination: GENERAL APPEARANCE: w ell developed, well nourished, in no acute distress. HEAD: n ormocephalic, atraumatic. EYES: p upils equal, round, reactive to light and accommodation, sclera non-icteric. EARS: n ormal. ORAL CAVITY: m ucosa moist. THROAT: c lear. NECK/THYROID: n chao supple, full range of motion, no cervical lymphadenopathy, no bruits. SKIN: w arm and dry, no suspicious lesions. HEART: r egular rate and rhythm, S1, S2 normal, no murmurs.? LUNGS: c lear to auscultation bilaterally. BREASTS: d one by security delivery specialist. ABDOMEN: s oft, nontender, nondistended, bowel sounds present, normal, no organomegaly , no masses palpable. RECTAL EXAM: d one by security delivery specialist. FEMALE GENITOURINARY: d one by security delivery specialist. EXTREMITIES: n o clubbing, cyanosis, or edema. NEUROLOGIC: n onfocal, motor strength normal upper and lower extremities, sensory exam intact. Assessment: * Assessment: 1. M icroscopic hematuria - R31.29 (Primary) 2 . 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 P ure hypercholesterolemia - E78.00 5 . D epression screening - Z13.31 Plan: * Treatment: 2. H ypervitaminosis D Notes: good vit d, will continue to monitor and continue current regiment 3. S ciatica of right side Notes: doing well with exercise 4. P ure hypercholesterolemia Continue Atorvastatin Calcium Tablet, 20 MG, TAKE 1 TABLET ONCE DAILY, Orally, Once a day. ? Notes: stable, will continue curent regiment 5. D epression screening Notes: negative screen * Procedure Codes: * * Sign off status: Completed true * Provider: Gail Ahn MD Date: 0 09/02/2024 Generated for Rosamaria smallwood/Cortez/Manny on: 02:17 PM EDT History and Physical Notes * HPI (History of Present Illness) Category Sub-Category Detail Notes Category Not es Depression Screening PHQ-9 Little inte rest or pleasure in doing things: Not at all Feeling down, depressed, or hopeless: No t at all Trouble falling or staying asleep, or sl eeping too much: Not at all Feeling tired or having little energy: N ot at all Poor appetite or overeating: Not at all Feeling bad about yourself o r that you are a failure, or have let yourself or your family down: Not at all Trouble concentrating on thi ngs, such as reading the newspaper or watching television: Not at all Moving or speaking so slowly that other people could have noticed; or the opposite, being so fidgety or restless that you have been moving around a lot more than usual: Not at all Thoughts that you would be b awn off or of hurting yourself in some way: Not at all Total Score: 0 Interpretation and Intervention Depression Darlene schroeder Findings: Negative Follow-Up for Depression: : review of PH Q-9 found negative result, no follow-up needed SDOH Questions SDOH Questions In the past year have you been worried about losing housing?: No In the past year have you or any family members you live with been unable to get any of the following when it was really needed? Check all that apply:: None Fall Risk History Have you had any falls with injury i n the past year?: No Have you had two or more falls in the st year?: No Communication Needs Communication Needs Does the patient have a hearing impairment: No Does the patient have a vision impairmen t?: Yes If yes, what is the vision impairment?: Glasses Does the patient have a cognition impair ment?: No Examination Category Sub-Category Detail Notes Category Not es General Examination GENERAL APPEARANCE: well dev eloped, well nourished, in no acute distress HEAD: normocephalic, atrau matic EYES: pupils equal, round, reactive to light and accommodation, sclera non-icteric EARS: normal THROAT: clear NECK/THYROID: neck supple, full ra nge of motion, no cervical lymphadenopathy, no bruits HEART: regular rate and rhy thm, S1, S2 normal, no murmurs LUNGS: clear to auscultatio n bilaterally ABDOMEN: soft, nontender, non distended, bowel sounds present, normal, no organomegaly , no masses palpable NEUROLOGIC: nonfocal, motor stre ngth normal upper and lower extremities, sensory exam intact SKIN: warm and dry, no elma picious lesions EXTREMITIES: no clubbing, cyanosi s, or edema BREASTS: done by security delivery specialist RECTAL EXAM: done by security delivery specialist FEMALE GENITOURINARY: done by security delivery specialist ORAL CAVITY: mucosa moist
--- OUTSIDE RECORDS SUMMARY | 2024-09-27 05:30 | XMS_ITS ---
Author Organization Stevenson Ahn MD Address [address] [place], [place] [phone] Care Team Providers Care Strategic Partner Development Manager Name Role Phone Stevenson Ahn Primary Care Provider Results Component Value Reference Range Notes Urinalysis and Microscopic Reviewed date:09/29/2024 04:54:58 PM Interpretation: Performing Lab:[facility], [address] [place] [phone] Notes/Report: Color Urine Yellow Appearance Urine Clear PH 7.0 5.0-9.0 Glucose Urine UA Negative Negative mg/dL Urine Blood Negative Negative Specific [place] - Urine 1.020 1.005-1.025 Urine Protein Negative [...] Ahn MD [address] [place], [place] [phone] 09/27/2024 Stevenson Ahn Microscopic hematuria R31.29 Assessments Encounter Date Diagnosis (ICD Code) Assessment Notes Treatment Notes Treatment Clinical Notes Section Notes 09/27/2024 Microscopic hematuria (ICD-10 - R31.29) Plan Of Treatment Next Appt Details Provider Name:Stevenson Canseco ier, 08/29/2025 08:15:00 AM, [address], [address], [place], [place], [phone], Provider Name:Stevenson Canseco ier, 09/07/2025 01:30:00 PM, [address], [address], [place], [place], [phone], Progress Notes * Merlyn FERNANDEZ ADOB:[birth year] (89 yo F)Acc No.[id number]:09/27/2024 Progress Note Patient: Merlyn CASTANON Provider: Gail Ahn MD :1935 A ge:89 Y S ex:Female Date:09/27/2024 Address:[address] [place], [place] [id number] Subjective: * Chief Complaints: * 1 . [...] Pending * Provider: Gail Ahn MD Date: 0 09/27/2024 Generated for Rosamaria smallwood/Cortez/Manny on: 02:16 PM EDT
--- OUTSIDE RECORDS SUMMARY | 2025-03-10 04:30 | XMS_ITS ---
Author Organization Stevenson Ahn MD Address [address] [place], [place] [phone] Care Team Providers Care Cooky Packer Name Role Phone Stevenson Ahn Primary Care Provider Results Component Value Reference Range Notes Liver Panel Reviewed date:03/10/2025 12:44:38 PM Interpretation: Performing Lab:[facility], [address] [place] [phone] Notes/Report: Bilirubin Total 0.6 0.0-1.0 mg/dL Bilirubin Direct 0.2 0.0-0.5 mg/dL Aspartate Amino Transferase 29 5-31 U/L Alanine Aminotransferase 15 0-31 U/L Total Protein 7.5 6.5-8.0 g/dL Albumin Level 4.1 3.5-5.0 g/dL Alkaline Phosphatase 49 39-117 U/L REASON FOR VISIT FASTING LIPDS Encounters Encounter Location Date Provider Diagnosis Stevenson Ahn MD [address] [place] [phone] 03/10/2025 Stevenson Ahn Pure hypercholestero lemia E78.00 Assessments Encounter Date Diagnosis (ICD Code) Assessment Notes Treatment Notes Treatment Clinical Notes Section Notes 03/10/2025 Pure hypercholesterolemia (ICD-10 - E78.00) Plan Of Treatment Pending Test Test Name Order Date Lipid Panel with Reflex 03/10/2025 Next Appt Details Provider Name:Stevenson Canseco ier, 08/29/2025 08:15:00 AM, [address], [address], [place], [place], [phone], Provider Name:Stevenson Canseco ier, 09/07/2025 01:30:00 PM, [address], [place], [place], [phone], Progress Notes * Merlyn FERNANDEZ ADOB:[birth year] (89 yo F)Acc No.[id number]:03/10/2025 Progress Note Patient: Merlyn CASTANON Provider: Gail Ahn MD :1935 A ge:89 Y S ex:Female Date:03/10/2025 Address:[address] [place] [address] [place] [id number] Subjective: * Chief Complaints: * 1 . [...] * Provider: Gail Ahn MD Date: 0 03/10/2025 Generated for Rosamaria smallwood/Cortez/Prabhaitting on: 02:16 PM EDT
--- OUTSIDE RECORDS SUMMARY | 2025-03-20 10:00 | XMS_ITS ---
Author Organization Stevenson Ahn MD Address [address] [place], [place] [phone] Care Team Providers Care Supervisor White Sugar Name Role Phone Stevenson Ahn Primary Care Provider Allergies No Known Allergies REASON FOR VISIT 6 MO F/U Medications Medication SIG (Take, Route, Frequency, Duration) Notes Start Date End Date Status Aspirin Adult Low Strength 81 MG 1 tablet Orally Once a day A ctive Prolia 60 MG/ML as directed Subcutaneous Active Atorvastatin Calcium 20 MG TAKE 1 TABLET ONCE DAILY Orally Once a day Active Vital Signs Blood pressure systolic 112 mm Hg 03/20/20 25 Blood pressure diastolic 60 mm Hg 025 Height 62 in 03/20/2025 Weight 111 lbs 03/20/2025 BMI 20.3 kg/m2 03/20/2025 Encounters Encounter Location Date Provider Diagnosis Stevenson Ahn MD [address] [place], [place] [phone] 03/20/2025 Stevenson Ahn Pure hypercholestero lemia E78.00 and Knee pain M25.569 Assessments Encounter Date Diagnosis (ICD Code) Assessment Notes Treatment Notes Treatment Clinical Notes Section Notes 03/20/2025 Pure hypercholesterolemia (ICD-10 - E78.00) is doing great., glen continue current regiment 03/20/2025 Knee pain (ICD-10 - M25.569) has been getting better so will observe. Plan Of Treatment Medication Medication Name Sig Start Date Stop Date Notes Atorvastatin Calcium 20 MG TAKE 1 TABLET ONCE DAILY Orally Once a day Treatment Notes Assessment Notes Pure hypercholesterolemia is doing great ., glen continue current regiment Knee pain has been getting bet ter so will observe. Next Appt Details Provider Name:Stevenson Canseco ier, 08/29/2025 08:15:00 AM, [address], [address], [place], [place], [phone], Provider Name:Stevenson Canseco ier, 09/07/2025 01:30:00 PM, [address], [address], [place], [place], [phone], Progress Notes * Merlyn FERNANDEZ ADOB:[birth year] (89 yo F)Acc No.[id number]:03/20/2025 Progress Notes Patient: Merlyn CASTANON Provider: Gail Anh MD :1935 A ge:89 Y S ex:Female Date:03/20/2025 Address:[address] [place] [address] [id number] Subjective: * Chief Complaints: * 6 MO F/U * HPI: S ymptom(s): patient is a 89 yo female here for 6 month follow up visit/ left knee hurts. especially stairs. has cruching. is getting better. * ROS: G eneral/Constitutional: Denies C hills. D enies F atigue. D enies F ever. D enies H eadache. E NT: Denies S ore throat. R espiratory: Denies C ough. D enies S hortness of breath at rest. D enies S hortness of breath with exertion. C ardiovascular: Denies C hest pain at rest. D enies C hest pain with exertion. D enies D izziness. D enies P alpitations. D enies S hortness of breath. G astrointestinal: Denies D iarrhea. D enies N ausea. * Medical History: * Surgical History: * Hospitalization/Major Diagno stic Procedure: * Medications: T akingProlia 60 MG/ML Solution Prefilled Syringe as directed Subcutaneous Aspirin Adult Low Strength 81 MG Tablet Delayed Release 1 tablet Orally Once a day Atorvastatin Calcium 20 MG Tablet TAKE 1 TABLET ONCE DAILY Orally Once a day Medication List reviewed and reconciled with the patientTaking Prolia 60 MG/ML Solution Prefilled Syringe as directed Subcutaneous Taking Aspirin Adult Low Strength 81 MG Tablet Delayed Release 1 tablet Orally Once a day Taking Atorvastatin Calcium 20 MG Tablet TAKE 1 TABLET ONCE DAILY Orally Once a day Medication List reviewed and reconciled with the patient * Allergies: N .K.D.A.yes[Allergies Verified] Objective: * Vitals: H t: 62, Wt: 111, BMI:20.3, BP:112/60, Wt-k.35. * P ast Orders: L ab:Liver Panel (Order Date - 03/10/2025) (Collection Date & Time - 03/10/2025 09:35 AM) Value Reference Range Bilirubin Total 0.6 0.0-1.0 - mg/dL Bilirubin Direct 0.2 0.0-0.5 - mg/dL Aspartate Amino Transferase 29 5-31 - U/L Alanine Aminotransferase 15 0-31 - U/L Total Protein 7.5 6.5-8.0 - g/dL Albumin Level 4.1 3.5-5.0 - g/dL Alkaline Phosphatase 49 39-117 - U/L L ab:Lipid Panel (Order Date - 03/10/2025) (Collection Date & Time - 03/10/2025 09:35 AM) Value Reference Range Triglycerides 69 <150 - mg/dL Cholesterol 160 <200 - mg/dL LDL Cholesterol Calculated 94 <100 - mg/dL HDL Cholesterol 53 >40 - mg/dL Assessment: * Assessment: 1. P ure hypercholesterolemia - E78.00 (Primary) 2 . K nee pain - M25.569? Plan: * Treatment: 2. K nee pain Notes: has been getting better so will observe. * Procedure Codes: * * Sign off status: Completed true * Provider: Gail Ahn MD Date: 0 03/20/2025 Generated for Rosamaria smallwood/Cortez/eTrossysmitting on: 1 02:17 PM EDT History and Physical Notes * HPI (History of Present Illness) Category Sub-Category Detail Notes Category Not es Symptom(s) patient is a 89 yo female here for 6 month follow up visit/ left knee hurts. especially stairs. has cruching. is getting better.
--- OUTSIDE RECORDS SUMMARY | 2025-03-23 08:45 | XMS_ITS ---
Author Organization Stevenson Ahn MD Address [address] [place], [place] [phone] Care Team Providers Care Faculty Dean Name Role Phone Stevenson Ahn Primary Care Provider Allergies No Known Allergies REASON FOR VISIT SWOLLEN FINGER RIGHT HAND middle finger x 3 days Medications Medication SIG (Take, Route, Frequency, Duration) Notes Start Date End Date Status Prolia 60 MG/ML as directed Subcutaneous Active Aspirin Adult Low Strength 81 MG 1 tablet Orally Once a day A ctive Atorvastatin Calcium 20 MG TAKE 1 TABLET ONCE DAILY Orally Once a day Active Vital Signs Blood pressure systolic 92 mm Hg 03/23/20 25 Blood pressure diastolic 56 mm Hg 025 Height 62 in 03/23/2025 Weight 111 lbs 03/23/2025 BMI 20.3 kg/m2 03/23/2025 Encounters Encounter Location Date Provider Diagnosis Stevenson Ahn MD [address] [place] [phone] 03/23/2025 Stevenson Ahn Finger pain, right M79.644 Assessments Encounter Date Diagnosis (ICD Code) Assessment Notes Treatment Notes Treatment Clinical Notes Section Notes 03/23/2025 Finger pain, right (ICD-10 - M79.644) is getting a lot better. will use ibuprofen for a few days Plan Of Treatment Treatment Notes Assessment Notes Finger pain, right is getting a lot bet ter. will use ibuprofen for a few days Next Appt Details Provider Name:Stevenson mays, 08/29/2025 08:15:00 AM, [address], [address], [place], [place], [phone], Provider Name:Stevenson Canseco ier, 09/07/2025 01:30:00 PM, [address], [address], [place], [place], [phone], Progress Notes * Merlyn FERNANDEZ ADOB:[birth year] (89 yo F)Acc No.[id number]:03/23/2025 Progress Notes Patient: Merlyn CASTANON Provider: Gail Ahn MD :1935 A ge:89 Y S ex:Female Date:03/23/2025 Address:[address] [place] [address] [id number] Subjective: * Chief Complaints: * 1 . SWOLLEN FINGER RIGHT HAND middle finger x 3 days. * HPI: S ymptom(s): patient is a 89 yo female here with complaint of sudden severe pain in rt middle finger. little? swollen.for 3 days. * ROS: G eneral/Constitutional: Denies C hills. D enies F atigue. D enies F ever. D enies H eadache. E NT: Denies S ore throat. R espiratory: Denies C ough. D enies S hortness of breath at rest. D enies S hortness of breath with exertion. G astrointestinal: Denies D iarrhea. D enies N ausea. * Medical History: c olonoscopy 2011 negative; due to age no further testing indicated per Dr. Mancilla, Miranda 2011 with loss of vision, Lung nodule seen on imaging study no need for further evaluation due to size and stablilitys. * Medications: T aking Prolia 60 MG/ML Solution Prefilled Syringe as directed Subcutaneous , Taking Aspirin Adult Low Strength 81 MG Tablet Delayed Release 1 tablet Orally Once a day , Taking Atorvastatin Calcium 20 MG Tablet TAKE 1 TABLET ONCE DAILY Orally Once a day , Medication List reviewed and reconciled with the patient * Allergies: N .K.D.A. Objective: * Vitals: H t: 62, Wt: 111, BMI:20.3, BP:92/56, Wt-k.35. * Examination: G eneral Examination: GENERAL APPEARANCE: a lert, well hydrated, in no distress.? EXTREMITIES: r t middle finger appears normal but has a little discomfort with movement. Assessment: * Assessment: 1. F niki pain, right - M79.644 (Primary) Plan: * Treatment: * * The named appointment provid er may or may not be the originator of this progress note, and it is not deemed complete until electronically signed by the appointment provider. Sign off status: Pending * Provider: Gail Ahn MD Date: 0 03/23/2025 Generated for Rosamaria smallwood/Cortez/Prabhaitting on: 02:16 PM EDT History and Physical Notes * HPI (History of Present Illness) Category Sub-Category Detail Notes Category Not es Symptom(s) patient is a 89 yo female here with complaint of sudden severe pain in rt middle finger. little swollen.for 3 days Examination Category Sub-Category Detail Notes Category Not es General Examination GENERAL APPEARANCE: alert, w ell hydrated, in no distress EXTREMITIES: rt middle finger alonso ears normal but has a little discomfort with movement
--- OUTSIDE RECORDS SUMMARY | 2025-06-30 14:17 | XMS_ITS | Patient Health Record ---
[facility] Address [address] [place] [address] Care Team Providers Care Garment Manufacturer Name Role Phone Stevenson Ahn MD Primary Care Provider Eric Patel Unavailable [phone] Reason For Referral No Information Medications Medication SIG (Take, Route, Frequency, Duration) Notes Start Date End Date Status Lipitor 20 MG 1 tablet Orally Once a day; Duration: 30 day(s) Active Problems Problem Type SNOMED Code ICD Code Onset Dates Problem Status W/U Status Risk Notes Problem Neuralgia - Neuritis (729.2) Active confirmed Problem Hallux valgus (920172739) Hallux Valgus (735.0) Active confirmed Problem 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, 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 Problem Pain in limb (23175276) Pain in Limb (729.5) Active confirmed Plan Of Treatment Pending Test Test Name Order Date X ray : Foot, left 3V 07/12/2014 90097, J0702- Neuroma/Injection 11/14/19 15 Insurance Providers Payer Name Payer Address Payer Phone Subscriber Number Group Number Insured Name Patient Relationship to Insured Coverage Start Date Coverage End Date Medicare National [facility] [employer] [address] [facility] [address] [id number] Merlyn Ng Self - patient is the insured [employer] [address] [place] [address] [id number] Merlyn Ng Self - patient is the insured Medical (General) History Medical History History ICD Code cancer cataracts chickenpox osteoporosis measles Surgical History Surgery Date(Month/Year) lumpectomy 09/09/2002 lumpectomy 09/18/2002 mastectomy 11/17/2008 right eye cataract surgery 10/23/2014 left eye cataract surgery 11/06/2014
--- OUTSIDE RECORDS SUMMARY | 2025-06-30 14:18 | XMS_ITS | Patient Health Record ---
Author Organization Stevenson Ahn MD Address [address] [place], [place] [id number] Care Team Providers Care Books Binder Name Role Phone Stevenson Ahn Primary Care Provider Allergies No Known Allergies Results Component Value Reference Range Notes Complete Blood Count Auto Di ff Reviewed date:08/30/2024 04:45:30 PM Interpretation: Performing Lab:[facility], [address] [place] [phone] Notes/Report: White Blood Count 8.9 4.8-10.8 X10*3/uL [...] NRBC Abs Auto 0.000 0.0-0.012 X10*3/uL Comprehensive [place]. Panel Fa Reviewed date:08/30/2024 04:43:02 PM Interpretation: Performing Lab:[facility], [address] [place] [phone] Notes/Report: Sodium 141 135-145 mmol/L Potassium 3.8 [...] Panel Reviewed date:08/30/2024 04:31:04 PM Interpretation: Performing Lab:[facility], [address] [place] [phone] Notes/Report: Bilirubin Direct 0.2 0.0-0.5 mg/dL Lipid Panel Reviewed date:08/30/2024 04:30:56 PM Interpretation: Performing Lab:[facility], [address] [place] [phone] Notes/Report: Triglycerides 74 <150 mg/dL Desirable Triglyceride: [...] Total Reviewed date:08/30/2024 04:30:46 PM Interpretation: Performing Lab:[facility], [address] [place] [phone] Notes/Report: Vitamin D 25-OH Total 69.0 >30 [...] Culture Reviewed date:08/30/2024 04:34:57 PM Interpretation: Performing Lab:[facility], [address] [place] [phone] Notes/Report: Urine Culture Report Result Urine Culture > 100,000 cfu/ml Urine Culture Mixed bacterial gumaro a characteristic of Urine Culture urogenital contamination. UA CC w/rflx Micro + Cult Reviewed date:09/02/2024 12:29:37 PM Interpretation: Performing Lab:[address] [phone] Notes/Report: Urine, Clean Catch Color Urine Yellow Appearance Urine Turbid PH 6.5 5.0-9.0 Glucose Urine UA Negative Negative mg/dL Urine Blood Small (1+) Negative Specific [place] - Urine 1.015 1.005-1.025 Urine Protein 30 (1+) Neg-Trace mg/dL Urine Ketones Negative Negative mg/dL Nitrite Urine Positive Negative Leukocyte Esterase Urine Large (3+) Negative UA ClnCatch+Micro w/rflx Cul t Reviewed date:09/02/2024 02:08:14 PM Interpretation: Performing Lab:[facility], [address] [place] [phone] Notes/Report: Urine, Clean Catch Color Urine Yellow Appearance Urine Turbid PH 6.5 5.0-9.0 Glucose Urine UA Negative Negative mg/dL Urine Blood Small (1+) Negative Specific [place] - Urine 1.015 1.005-1.025 Urine Protein 30 [...] Panel Reviewed date:10/25/2024 02:51:49 PM Interpretation: Performing Lab:[address] [phone] Notes/Report: Sodium 143 135-145 mmol/L Potassium 3.8 [...] Level Reviewed date:10/25/2024 02:42:21 PM Interpretation: Performing Lab:[address] [phone] Notes/Report: Albumin Level 4.1 3.5-5.0 g/dL Lipid Panel Reviewed date:03/10/2025 12:46:41 PM Interpretation: Performing Lab:[address] [address] Notes/Report: Triglycerides 69 <150 mg/dL Desirable Triglyceride: [...] Panel Reviewed date:04/28/2025 06:40:09 PM Interpretation: Performing Lab:[address] [address] Notes/Report: Sodium 142 135-145 mmol/L Potassium 4.0 [...] Level Reviewed date:04/28/2025 05:07:20 PM Interpretation: Performing Lab:[facility], [address] [place] [address], [place] [address] Notes/Report: Albumin Level 4.3 3.5-5.0 g/dL Reason [...] Problem Status W/U Status Risk Notes Problem 546324945 TIA (transient ischemic attack) (G45.9) Active confirmed Problem Constipation (10595005) Constipation (K59.00) Active confirmed Problem Hypervitaminosis D (77248879) 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 Problem 322566980 Lumbar disc dise ase (M51.9) Active confirmed Problem 819300567 Tubular adenoma of colon (D12.6) Active confirmed Problem 73645346 Osteoporosis (M81.0) Active confirmed Problem 545952952 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) Active confirmed Problem 047955779065562 Sciatica of righ t side (M54.31) Active confirmed Problem 527407657 Pure hypercholesterolemia (E78.00) Active confirmed Vital Signs Blood pressure diastolic 56 mm Hg 03/23/2025 Height 62 in 03/23/2025 Blood pressure systolic 92 mm Hg 03/23/2025 Weight 111 lbs 03/23/2025 BMI 20.3 kg/m2 03/23/2025 Encounters Encounter Location Date Provider Diagnosis Stevenson Ahn MD [address] [place], [place] [id number] 03/23/2025 Stevenson Ahn Finger pain, right M 79.644 Stevenson Ahn MD [address] [place], [place] [id number] 09/02/2024 Stevenson Ahn Microscopic hematuri a R31.29 ; Hypervitaminosis D E67.3 ; Sciatica of right side M54.31 ; Pure hypercholesterolemia E78.00 and Depression screening Z13.31 Stevenson Ahn MD [address] [place] [id number] 03/20/2025 Stevenson Ahn Pure hypercholestero lemia E78.00 and Knee pain M25.569 Stevenson Ahn MD [address] [place] [id number] 07/19/2024 Stevenson Ahn Pure hypercholestero lemia E78.00 Stevenson Ahn MD [address] [place] [id number] 08/11/2024 Stevenson Ahn MD [address] [place] [id number] 09/02/2024 Stevenson Ahn Assessments Encounter Date Diagnosis [...] Name:Stevenson Canseco ier, 08/29/2025 08:15:00 AM, [address] [facility], [address], [place], [place], [id number], Provider Name:Stevenson Canseco ier, 09/07/2025 01:30:00 PM, [address] [facility], [address], [place], [place], [id number], Insurance Providers Payer Name Payer Address Payer Phone Subscriber Number Group Number Insured Name Patient Relationship to Insured Coverage Start Date Coverage End Date MED[employer] [address] [place] [address] [id number] Merlyn Ng Self - patient is the insured MEDEX BCBS OF [facility] [address] [place] [address] [id number] Merlyn Ng Self - patient is the [...]
--- OUTSIDE RECORDS SUMMARY | 2025-06-30 14:18 | XMS_ITS | Patient Health Record ---
Author Organization [facility] Address [address] [place] [address] Care Team Providers Care Binder Fixer Name Role Phone Stevenson Ahn MD Primary Care Provider Luis Fernando Gillis Unavailable [phone] Reason For Referral No Information Medications Medication [...] Risk Notes Problem Benign neoplasm of colon (08820528) 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) Active confirmed Problem History of polyp of colon (situation) (310648655) Personal history of colonic polyps (V12.72) Active confirmed Problem Screening for malignant neoplasm of colon (360879670) Special screening for malignant neoplasms, colon (V76.51) Active confirmed Plan Of Treatment Future Test Test Name Order Date COLONOSCOPY 07/18/2011 Insurance Providers Payer Name Payer Address Payer Phone Subscriber Number Group Number Insured Name Patient Relationship to Insured Coverage Start Date Coverage End Date MEDICARE OF [place] [address] [place] [address] [phone] [id number] ROBBYMAYNOR JAYSA Self - patient is the insured MED[employer] ATTN CLAIMS [address] [place] [address] [phone] [id number] ROBBYMAYNOR JUSTINO Self - patient is the insured Medical (General) History Medical History History ICD Code hyperlipidemia breast cancer-she had a left sided lumpectomy in 2002 with associated radiation treatments, right-sided breast cancer in August 2005 for which she underwent a lumpectomy and radiation treatments, and recurrence of breast cancer on the right side with subsequent mastectomy and chemotherapy in 2008 Denies ND,DM,CVA,Lung disease,renal dise ase Surgical History Surgery Date(Month/Year) breast cancer surgeries as above cholecystectomy eye surgery
== END 2025-06-30 13:11 | disposition home or self-care (01) ==
LOC: HO.MAMMO 13:10
PROVIDERS: PCP Internal Medicine; Visit Provider Internal Medicine Endocrinology, Diabetes & Metabolism
DX: Z13.89 Encounter for screening for other disorder (principal)